=== PATIENT | male | born 1945 | race Caucasian/White ===

== ENCOUNTER 2017-03-13 08:29 | Emergency (ER) | payer OTHER, BC ==
[2017-03-13 08:35] VITALS: TEMP 98; BMI 26.1
--- NOTE | 2017-03-13 09:02 | PDOC ---
History of Present Illness - General Chief Complaint: Revisit, Lab Variance Stated Complaint: SEND BY PCP Time Seen by Provider: 03/13/17 09:01 Past History - Past Medical History Allergies/Adverse Reactions: Allergies Allergy/AdvReac Type Severity Reaction Status Date / Time No Known Allergies Allergy Verified 03/13/17 09:08 Home Medications: Ambulatory Orders RX: Levothyroxine [Synthroid -] 25 mcg PO DAILY 12/16/13 RX: Ramipril [Altace] 10 mg PO DAILY 12/16/13 RX: Ranitidine [Zantac -] 150 mg PO DAILY 12/16/13 RX: Simvastatin [Zocor -] 40 mg PO HS 12/16/13 Anemia: No Asthma: No Cancer: No Cardiac Disorders: Yes (HEART MURMUR) CVA: No COPD: No CHF: No Dementia: No Diabetes: No GI Disorders: Yes (GERD) Disorders: No HTN: Yes Hypercholesterolemia: Yes Liver Disease: No Seizures: No Thyroid Disease: Yes - Surgical History Abdominal Surgery: No Appendectomy: Yes Cardiac Surgery: No Cholecystectomy: No Lung Surgery: No Neurologic Surgery: No Orthopedic Surgery: No - Psycho/Social/Smoking Cessation Hx Suicidal Ideation: No Smoking History: Former smoker Have you smoked in the past 12 months: No If you are a former smoker, when did you quit?: 15 years ago Information on smoking cessation initiated: No Hx Alcohol Use: No Drug/Substance Use Hx: No Substance Use Type: None Hx Substance Use Treatment: No *Physical Exam - Vital Signs Last Vital Signs Temp Pulse Resp BP Pulse Ox 98 F 53 L 18 157/78 100 03/13/17 08:32 03/13/17 08:32 03/13/17 08:32 03/13/17 08:32 03/13/17 08:32 ED Treatment Course - LABORATORY CBC & Chemistry Diagram: 03/13/17 09:02 03/13/17 09:02 Medical Decision Making - Medical Decision Making 03/13/17 10:03 Patient seen and evaluated with the nurse practitioner. I agree with the overall evaluation, assessment, and management with the following summary of visit: 71-year-old male sent to ED for elevated potassium level found on routine blood tests performed yesterday. EKG shows no hyperkalemic changes or ischemic changes Repeat potassium is 4.5, creatinine is 1.4. Will dispo with PMD.
[2017-03-13 09:13] LABS: BASOPHIL 0.9 % (0-2.0); MCH 32.6 pg (25.7-33.7); MCHC 34.3 g/dl (32.0-35.9); MEAN CELL VOLUME 94.9 fl (80-96); MEAN PLT VOLUME 7.9 fl (7.5-11.1); NEUTROPHILS 68.5 % (42.8-82.8); PLATELET COUNT 296 K/MM3 (134-434); RDW 12.9 % (11.9-15.9); WHITE BLOOD COUNT 7.3 K/mm3 (4.0-10.0)
[2017-03-13 09:34] LABS: ALBUMIN 4.3 g/dl (3.4-5.0); CALCIUM 9.4 mg/dL (8.5-10.1); COCKROFT - GAULT 54.87; CREATININE 1.4 mg/dL (0.7-1.3)
--- NOTE | 2017-03-13 09:42 | PDOC ---
History of Present Illness - General Chief Complaint: Revisit, Lab Variance Stated Complaint: SEND BY PCP Time Seen by Provider: 03/13/17 09:01 History Source: Patient Exam Limitations: No Limitations - History of Present Illness Initial Comments: 03/13/17 09:04 71-year-old male sent in by Dr. Snyder for evaluation of elevated potassium. Patient had blood work done prior to his visit with Dr. Underwood this as routine blood work. Patient states has no complaints include chest pain, shortness of breath, change in urine pattern, change in bowel pattern, lower extremity, kidney disease, skin discoloration, or abdominal distention. Patient does state history of mitral valve regurgitation and had a replacement 2 weeks ago. Timing/Duration: unsure Associated Symptoms: reports: denies symptoms Past History - Travel Traveled outside of the country in the last 30 days: No Close contact w/someone who was outside of country & ill: No - Past Medical History Allergies/Adverse Reactions: Allergies Allergy/AdvReac Type Severity Reaction Status Date / Time No Known Allergies Allergy Verified 03/13/17 09:08 Home Medications: Ambulatory Orders Levothyroxine [Synthroid -] 25 mcg PO DAILY 12/16/13 Ramipril [Altace] 10 mg PO DAILY 12/16/13 Ranitidine [Zantac -] 150 mg PO DAILY 12/16/13 Simvastatin [Zocor -] 40 mg PO HS 12/16/13 Anemia: No Asthma: No Cancer: No Cardiac Disorders: Yes (HEART MURMUR) CVA: No COPD: No CHF: No Dementia: No Diabetes: No GI Disorders: Yes (GERD) Disorders: No HTN: Yes Hypercholesterolemia: Yes Liver Disease: No Seizures: No Thyroid Disease: Yes - Surgical History Abdominal Surgery: No Appendectomy: Yes Cardiac Surgery: Yes (mvr) Cholecystectomy: No Lung Surgery: No Neurologic Surgery: No Orthopedic Surgery: No - Psycho/Social/Smoking Cessation Hx Suicidal Ideation: No Smoking History: Former smoker Have you smoked in the past 12 months: No If you are a former smoker, when did you quit?: 15 years ago Information on smoking cessation initiated: No Hx Alcohol Use: No Drug/Substance Use Hx: No Substance Use Type: None Hx Substance Use Treatment: No Patient Lives Alone: No Lives with/in: spouse/SO Review of Systems - Review of Systems Able to Perform ROS?: Yes Constitutional: No: Symptoms Reported HEENTM: No: Symptoms Reported Respiratory: No: Symptoms reported Cardiac (ROS): No: Symptoms Reported ABD/GI: No: Symptoms Reported : No: Symptoms Reported Musculoskeletal: No: Symptoms Reported Integumentary: No: Symptoms Reported Neurological: No: Symptoms reported Endocrine: No: Symptoms Reported Hematologic/Lymphatic: No: Symptoms Reported *Physical Exam - Vital Signs Last Vital Signs Temp Pulse Resp BP Pulse Ox 98 F 53 L 18 157/78 98 03/13/17 08:32 03/13/17 08:32 03/13/17 08:32 03/13/17 08:32 03/13/17 09:00 - Physical Exam General Appearance: Yes: Nourished, Appropriately Dressed. No: Apparent Distress HEENT: negative: Pale Conjunctivae Neck: positive: Supple Respiratory/Chest: positive: Lungs Clear, Normal Breath Sounds. negative: Respiratory Distress, Accessory Muscle Use Cardiovascular: positive: Regular Rhythm, Regular Rate. negative: Murmur Gastrointestinal/Abdominal: positive: Soft. negative: Tenderness Musculoskeletal: negative: CVA Tenderness Extremity: positive: Normal Capillary Refill. negative: Pedal Edema Integumentary: positive: Normal Color, Warm, Moist Neurologic: positive: Motor Strength 5/5 (ambulatory) Heart Score/ECG Review - ECG Intrepretation Rhythm: Regular Rhythm (rate 54. intervals are regular. no st depression and elevation) ED Treatment Course - LABORATORY CBC & Chemistry Diagram: 03/13/17 09:02 03/13/17 09:02 - ADDITIONAL ORDERS Additional order review: Laboratory Results 03/13/17 09:02 Sodium 141 Potassium 4.5 Chloride 106 Carbon Dioxide 28 Anion Gap 7 L BUN 17 Creatinine 1.4 H Creat Clearance w eGFR 49.68 Random Glucose 103 Calcium 9.4 AST 25 Albumin 4.3 03/13/17 09:02 RBC 4.01 MCV 94.9 MCHC 34.3 RDW 12.9 MPV 7.9 Neutrophils % 68.5 Lymphocytes % 17.3 Monocytes % 8.3 Eosinophils % 5.0 H Basophils % 0.9 Medical Decision Making - Medical Decision Making 03/13/17 09:53 Pt here for evaluation of elevated potassium sent in by Dr. snyder. Pt is currently asymptomatic. Pt was ordered for cbc, comp, and ekg. Pt placed on quality assurance monitor. 03/13/17 10:21 Laboratory Tests 03/13/17 03/13/17 09:02 09:02 WBC 7.3 Hgb 13.1 Hct 38.1 Plt Count 296 Eosinophils % 5.0 H Sodium 141 Potassium 4.5 Chloride 106 Carbon Dioxide 28 Anion Gap 7 L BUN 17 Creatinine 1.4 H AST [address] Underwood in regards to lab results. 03/13/17 10:[address] Underwood and agrees patient may be discharged home to follow -up with him in the office this for his appointment. *DC/Admit/Observation/Transfer Diagnosis at time of Disposition: Encounter for laboratory test - Discharge Dispostion Disposition: HOME Condition at time of disposition: Good - Referrals Referrals: Harry Underwood MD [Primary Care Provider] - - Patient Instructions Printed Discharge Instructions: Eat Well, Exercise Well, Be Well: Dietary and Fitness Guidelines Additional Instructions: Your potassium today was 4.6 and creatinine level today was 1.4. I have discussed the results with Dr. Underwood who agrees this is her baseline and will follow-up in the office with you this for your appointment.
[2017-03-13 09:50] LABS: TOT PROT 7.8 g/dl (6.4-8.2)
--- NOTE | 2017-03-13 11:00 | EKG ---
Test Reason : Blood Pressure : / mmHG Vent. Rate : 054 BPM Atrial Rate : 054 BPM P-R Int : 190 ms QRS Dur : 096 ms QT Int : 418 ms P-R-T Axes : 034 003 032 degrees QTc Int : 396 ms SINUS BRADYCARDIA EARLY TRANSITION NOTED ABNORMAL ECG WHEN COMPARED WITH ECG OF 23-JAN-2007 01:07, VENT. RATE HAS DECREASED BY 32 BPM Confirmed by ANTOINETTE KNOX MD ([id number]) on 03/13/2017 11:00:09 AM Referred By: Confirmed By:ANTOINETTE KNOX MD
[2017-03-13 11:05] VITALS: BP 160/60; PULSE 50
== END 2017-03-13 11:07 | disposition home or self-care (01) ==
LOC: JER 08:29
DX: Z00.01 Encounter for general adult medical examination with abnormal findings (principal); E87.5 Hyperkalemia; I10 Essential (primary) hypertension; E78.00 Pure hypercholesterolemia, unspecified; K21.9 Gastro-esophageal reflux disease without esophagitis; E03.9 Hypothyroidism, unspecified
CPT/HCPCS: 36415; 80053; 85025; 93005; 93010; 99283-25

== ENCOUNTER 2019-03-19 06:56 | Day surgery (SDC) | payer OTHER, BC ==
[2019-03-18 13:29] VITALS: BMI 27.2
[2019-03-19 08:54] VITALS: TEMP 98.8
[2019-03-19 10:47] VITALS: BP 140/67; PULSE 52
--- NOTE | 2019-03-20 09:02 | PATH ---
Surgical Pathology Report Patient Name: CASS RICHARD [facility]. Rec. #: [id number] /Age/Gender: 1945 (Age: 73) / M Account: [id number] Location: U-ENDOSCOPY Taken: 03/19/2019 Received: 03/19/2019 Reported: 03/20/2019 Physicians: Lance Cuba M.D. Specimen(s) Received A: BX RECTAL POLYP B: BX PROXIMAL TRANSVERSE COLON Clinical History Screening Postoperative diagnosis: Colon polyps, diverticulosis Final Diagnosis A. COLON, RECTUM, BIOPSY: HYPERPLASTIC POLYP B. COLON, PROXIMAL TRANSVERSE, BIOPSY: COLONIC MUCOSA WITH NO PATHOLOGIC CHANGES. NO ACTIVE COLITIS, ARCHITECTURAL DISTORTION, GRANULOMATA, OR DYSPLASIA IDENTIFIED. NO MICROSCOPIC COLITIS IDENTIFIED (NO LYMPHOCYTIC OR COLLAGENOUS COLITIS IDENTIFIED). Electronically Signed Will Damon M.D. Gross Description A. Received in formalin, labeled "rectum polyp biopsy" is a cisneros, irregular portion of soft tissue measuring 0.3 cm. in greatest dimension. The specimen is submitted in toto in one cassette. B. Received in formalin, labeled "proximal transverse colon" are 5 cisneros, irregular portions of soft tissue ranging from 0.1-0.3 cm. in greatest dimension. The specimens are submitted in toto in one cassette. /03/19/2019 [facility]03/19/2019
== END 2019-03-19 10:10 | disposition home or self-care (01) ==
LOC: JASU-ENDO 06:56
PROVIDERS: ATTEND Internal Medicine Gastroenterology
PROC: 0DBL8ZX Excision of Transverse Colon, Via Natural or Artificial Opening Endoscopic, Diagnostic (ICD-10-PCS; 2019-03-19)
PROC: 0DBP8ZX Excision of Rectum, Via Natural or Artificial Opening Endoscopic, Diagnostic (ICD-10-PCS; principal; 2019-03-19 08:00)
DX: Z12.11 Encounter for screening for malignant neoplasm of colon (principal); Z86.010 Personal history of colon polyps; K62.1 Rectal polyp; K64.8 Other hemorrhoids; D12.3 Benign neoplasm of transverse colon; K57.30 Diverticulosis of large intestine without perforation or abscess without bleeding; I10 Essential (primary) hypertension; I48.91 Unspecified atrial fibrillation; Z79.01 Long term (current) use of anticoagulants
CPT/HCPCS: 88305-TC

== ENCOUNTER 2019-10-17 18:01 | Emergency (ER) | payer OTHER, BC ==
--- NOTE | 2019-10-17 18:22 | PDOC ---
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 Patient reports that he was walking home from his [place] and then woke up in the ambulance. Does not know what happened, positive LOC. Complains only about low back pain and right shoulder pain. Denies CP, SOB, abd pain, KAYE, N/V, fevers/chills, constipation/diarrhea. Has never had an event like this before. Past History - Past Medical History Allergies/Adverse Reactions: Allergies Allergy/AdvReac Type Severity Reaction Status Date / Time No Known Allergies Allergy Verified 10/17/19 18:13 Home Medications: Ambulatory Orders Levothyroxine [Synthroid -] 25 mcg PO DAILY 12/16/13 Ramipril [Altace] 10 mg PO DAILY 12/16/13 Ranitidine [Zantac -] 150 mg PO DAILY 12/16/13 Simvastatin [Zocor -] 40 mg PO HS 12/16/13 Apixaban [Eliquis] 5 mg PO BID 03/18/19 Metoprolol Succinate 25 mg PO DAILY 03/18/19 Anemia: No Asthma: No Cancer: No Cardiac Disorders: Yes (PAROXYSMAL AFIB,HEART MURMUR) CVA: No COPD: No CHF: No Dementia: No Diabetes: No GI Disorders: Yes (GERD) Disorders: No HTN: Yes Hypercholesterolemia: Yes Liver Disease: No Seizures: No Thyroid Disease: Yes (Hypo) - Surgical History Abdominal Surgery: No Appendectomy: Yes Cardiac Surgery: No Cholecystectomy: No Lung Surgery: No Neurologic Surgery: No Orthopedic Surgery: No - Psycho Social/Smoking Cessation Hx Smoking History: Former smoker Have you smoked in the past 12 months: No If you are a former smoker, when did you quit?: 1998 Hx Alcohol Use: No Drug/Substance Use Hx: No Substance Use Type: None Hx Substance Use Treatment: No Review of Systems - Review of Systems Comments:: 10/18/19 02:13 GENERAL/CONSTITUTIONAL: No fever or chills. No weakness. HEAD, EYES, EARS, NOSE AND THROAT: No change in vision. No ear pain or discharge. No sore throat. CARDIOVASCULAR: No chest pain or shortness of breath. RESPIRATORY: No cough, wheezing, or hemoptysis. GASTROINTESTINAL: No nausea, vomiting, diarrhea or constipation. GENITOURINARY: No dysuria, frequency, or change in urination. MUSCULOSKELETAL: Mild R clavicular tenderness. Low back pain. SKIN: No rash NEUROLOGIC: No headache, vertigo, loss of consciousness, or change in strength/ sensation. ENDOCRINE: No increased thirst. No abnormal weight change. HEMATOLOGIC/LYMPHATIC: No anemia, easy bleeding, or history of blood clots. ALLERGIC/IMMUNOLOGIC: No hives or skin allergy *Physical Exam - Physical Exam 10/17/19 Gen: well-developed, well-nourished, NAD, appears pale. Hypoxic at 85%. Wearing C-collar. Neuro: AAOX4, CN II-XII intact, FTN intact, EOMI, PERRLA, 5/5 strength, SILT HEENT: atraumatic, normocephalic, dry mucous membranes Neck: trachea midline, supple CV: regular rate, regular rhythm, no murmurs, rubs, or gallops Pulm: CTA b/l, no wheezing Abd: soft, non-distended, non-tender MSK: full ROM, intact pulses. No bony tenderness of the hip. Negative Millan Diaz's sign. No midline cervical, thoracic, or lumbar tenderness. Extr: no edema, no deformities. Mild ttp over R clavicle. Skin: warm, dry Procedures - Central Line Central Line Lumen: triple Central Line Position: femoral (R) Anesthesia: 1% Lidocaine Amount of anesthesia (ccs): 10 Complications: none Post Central Line Insertion: sutured, good blood return - Intubation Time of Intubation: 01:05 Intubation Method: orotracheal Blade used: Glidescope Tube Size (Fr): 6.5 Medications: Etomidate, Succinylcholine Tube position @ lip (cm): 20 Tube position confirmed by: Direct visualization, CO2 detector, Breath sounds Breath Sounds after Intubation: equal Intubation Complications: no complications Post Intubation Xray: No (transferred to [facility]) ED Treatment Course - LABORATORY CBC & Chemistry Diagram: 10/17/19 22:00 10/17/19 19:05 Medical Decision Making - Critical Care Time Total Critical Care Time (minutes): 240 Critical Care Statement: The care of this patient involved high complexity decision making to prevent further life threatening deterioration of the patient 's condition and/or to evaluate & treat vital organ system(s) failure or risk of failure. - Medical Decision Making 10/18/19 74 yo M with initial reported history of syncope with collapse, positive LOC, positive head hematoma, also on Eliquis. Initially concern was for ACS vs dysrhythmia, and ACS workup ordered. Initial EKG normal sinus at 73 bpm. With unknown history of collapse on blood thinners, also put in CT head/cervical /thoracic/lumbar scans. While preparing for CT scan, patient's BP was noted to be 80s/40s. 2L of NS were started with improved MAPs. At that time, WBC was noted to be greater than 20, with an elevated lactate of 3.8. Patient was started on septic workup with blood cultures drawn and broad spectrum antibiotics started. FAST was performed, without signs of free fluid. With increasing hypotension, another 1L NS was started, and a CTA looking for potential dissection or pulmonary embolism considering persistent hypoxia were placed. While on the CT scan table, was noted again to have MAPs in the 50s. Also having runs of atrial fibrillation. Was given 1 unit pRBC O-negative, and there was growing concern for an occult bleed, potentially a hip fracture. Patient was brought back to room 10 with continuing MAPs in the 50s. Massive transfusion protocol was ordered. Considering hypotension and potential need for pressors, a central line was placed in the patient's right femoral vein (CT cervical spine was not back yet) . Fentanyl 50mcg was given. After central line placement, 2 other units of pRBCs were placed and the patient was started on Levophed at 5 mcg. Patient then developed afib with RVR to the 170s. Another 50mcg of fentanyl was given without change. CT scans came back with pelvic fractures, acute hematoma, as well as bilateral pneumonitis. Patient was placed in a pelvic binder and continued to get blood products. [facility] was called and accepted the transfer. In total, patient received 7 units pRBCs, 2 units of plasma, 2 units of FFP, as well as 3L of saline initially. With the amount of fluid patient received, patient was placed on BIPAP. Upon arrival of transport, patient was tachypneic and not tolerating BIPAP. Patient was then intubated for transport, with return of HR to below 100. Patient was transferred to [facility]. Discharge - Discharge Information Problems reviewed: Yes Clinical Impression/Diagnosis: Syncope and collapse Condition: Critical Disposition: TRANSFER ACUTE CARE/OTHER HOSP - Follow up/Referral Referrals: Harry Underwood MD [Primary Care Provider] - - Patient Discharge Instructions - Post Discharge Activity
[2019-10-17 18:23] VITALS: BMI 27.2
[2019-10-17 19:18] LABS: BASO % 0.4 % (0-2.0); EOS % 0.7 % (0-4.5); HEMOGLOBIN 11.5 GM/dL (11.7-16.9); LYMPH % 10.8 % (8-40); MCHC 32.9 g/dl (32.0-35.9); MEAN CELL VOLUME 97.1 fl (80-96); MEAN PLT VOLUME 8.8 fl (7.5-11.1); MONO % 6.7 % (3.8-10.2); NEUT % 81.4 % (42.8-82.8); PLATELET COUNT 237 K/MM3 (134-434); RDW 12.8 % (11.9-15.9); WHITE BLOOD COUNT 20.6 K/mm3 (4.0-10.0)
[2019-10-17] MEDS ORDERED: ACETAMINOPHEN 1000 MG/100 ML VIAL (NON FORMULARY) IVPB ONE (19:21)
[2019-10-17] MEDS ORDERED: ACETAMINOPHEN INJECTION 100 ML IVPB ONE (19:43)
--- NOTE | 2019-10-17 19:44 | PDOC ---
Attending Attestation - Resident Resident Name: GonzalezGlenn - ED Attending Attestation I have performed the following: I have examined & evaluated the patient, The case was reviewed & discussed with the resident, I agree w/resident's findings & plan - HPI HPI: 10/17/19 21:06 Pt was feeling fine today. He ate cereal for breakfast and a bagel and coffee for lunch. [facility] and he had a syncopal episode en route back home. He had been ambulating. No witnesses, somebody found him down. He has never had syncope. He hit his left forehead. Pt is on Eliquis for AFIB; placed on Eliquis by Dr. Juan. Pt's PMD is Underwood. Pt has HTN and high cholesterol also. He takes metorpolol and a choleserol lowering med. Pt's states that the family has been under a great deal of stress due to unfortunate circumstances. Pt states that his low back hurts and tailbone hurt. - Physicial Exam PE: 10/17/19 21:10 Pt is A+Ox3 No distress and no complaints. C collar on. Left forehead 2.5cm hematoma No cspine tenderness. No T-spine or L-spine tenderness Pt has paraspinal pain Pt has downgoing babinski reflexes. Joint refelxes brisk and equal throughout. Strenth intact Pt complains of low back pain when he moves his left leg. - Critical Care Time Total Critical Care Time: 240 Critical Care Statement: The care of this patient involved high complexity decision making to prevent further life threatening deterioration of the patient 's condition and/or to evaluate & treat vital organ system(s) failure or risk of failure. - Medical Decision Making 10/17/19 21:02 Pt's blood pressure dropped to 60/40. Pt receiving 2L NSS at this time 10/17/19 21:12 Hb/HCT 1st level is stable. Pt has a WBC of 20; unclear if this is sepsis. Pt has left shift of 81% Pt has no fever and no ill contacts and no comlplaints . Urine straightcath sent (appears clear) 10/17/19 21:18 CPK and CK-MB high MB index however normal EKG NSR. No AFIB noted BUN20/Cr 1.4; pt is getting hydration Neurologically intact. 10/17/19 21:32 Lactic acid 3.8; pt will go to the ICU; head CT seen by ourselves, but we are awaiting official result. Only scalp hematomas coup/countercoup pattern. 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 UA normal 10/20/19 01:35 Pt's blood pressure plummeted. Remained low despite 2L NSS, 1Unit blood; portable CXR done and shows bilat patchy pneumonitis; pt returned from CT scan and BP dropping there and now here. Levophed drip started @5mcg/min; (Central line placed in the right groin) at bedside I kept adjusting levophed btwn 5mcg , 10mcg and 15mcg, as rapid afib was affected by the dose. Pt placed on BiPAP, as 13 units of blood products was soon to be placed into patient, and pt was already having difficulty breathing with his congestion, which was likely bleeding into his lungs bilaterally. After hours, readings of CT scan returned, and patient was found to have bilateral pelvic fractures; pelvis was bound with a sheet, and cranked tight with a chest tube. Pt was given fentanyl for pain as well as ofirmev. Ortho emergency with the pelvic fractures. We arranged for transfer of patient to [facility] , howeverpt wouldn't tolerate the Critical Care Team;s bipap; so we intubated patient in the ER prior to transfer with etomidate and succs. 1st attempt at intubation with a 7.5ETT was unsuccssful; 2nd attempt with 6.5 ETT worked. Pt was given rocuronium, prior to transfer.
[2019-10-17 20:02] LABS: ALBUMIN 3.8 g/dl (3.4-5.0); ALK PHOS 69 U/L (45-117); ANION GAP 7 MMOL/L (8-16); BILIRUBIN,TOTAL 0.8 mg/dL (0.2-1); BLOOD UREA NITROGEN 20.4 mg/dL (7-18); CALCIUM 9.1 mg/dL (8.5-10.1); CHLORIDE 106 mmol/L (98-107); CO2 26 mmol/L (21-32); CREATININE 1.4 mg/dL (0.55-1.3); GLUCOSE,RANDOM 163 mg/dL (74-106); POTASSIUM 4.5 mmol/L (3.5-5.1); SGOT/AST 41 U/L (15-37); SGPT/ALT 31 U/L (13-61); SODIUM 139 mmol/L (136-145); TOT PROT 6.7 g/dl (6.4-8.2)
[2019-10-17] MEDS ORDERED: SODIUM CHLORIDE 0.9% 500 ML INFUS.BAG IV ONE (20:41)
[2019-10-17] MEDS ORDERED: PIPERACILLIN/TAZOB 4.5 GM 4.5 GM/100 ML BAG IVPB ONE (20:50)
[2019-10-17] MEDS ORDERED: VANCOMYCIN 1 GRAM (PRE-DOCKED) 1,000 MG/250 ML BAG IVPB ONE (20:50)
[2019-10-17 21:01] LABS: ANISOCYTOSIS 0; MACROCYTOSIS 0; OVALOCYTE 1+; PLATELET ESTIMATE NORMAL
[2019-10-17 21:14] LABS: EPI CELLS 0.8 /HPF (0-5/HPF); HYALINE CASTS 3 /lpf (0-8); PH,URINE 5.5 (5.0-8.0); URINE APPEARANCE CLEAR; URINE BACTERIA 0.3 /hpf (NEGATIVE); URINE BILIRUBIN NEGATIVE (NEGATIVE); URINE COLOR YELLOW; URINE GLUCOSE (UA) NEGATIVE (NEGATIVE); URINE KETONE NEGATIVE (NEGATIVE); URINE LEUK ESTERASE NEGATIVE (NEGATIVE); URINE NITRITE NEGATIVE (NEGATIVE); URINE PROTEIN 1+ (NEGATIVE); URINE RBC 0 /hpf (0-4); URINE UROBILINOGEN 0.2 mg/dL (0.2-1.0); URINE WBC 0 /hpf (0-5)
[2019-10-17 21:31] LABS: INR 1.51 (0.83-1.09); PROTHROMBIN TIME (PATIENT) 17.9 SEC (9.7-13.0)
[2019-10-17 21:34] LABS: ACTIVATED PTT 27.4 SECONDS (25.2-36.5)
[2019-10-17] MEDS ORDERED: NOREPINEPHRINE BITARTRATE 4,000 MCG in DEXTROSE 5%-WATER - 496 ML IV SCH (21:45)
[2019-10-17 22:10] LABS: BASO % 0.1 % (0-2.0); EOS % 0.2 % (0-4.5); HEMATOCRIT 27.8 % (35.4-49); LYMPH % 6.1 % (8-40); MCH 31.7 pg (25.7-33.7); MCHC 32.4 g/dl (32.0-35.9); MEAN CELL VOLUME 97.7 fl (80-96); MEAN PLT VOLUME 8.5 fl (7.5-11.1); MONO % 8.4 % (3.8-10.2); NEUT % 85.2 % (42.8-82.8); PLATELET COUNT 202 K/MM3 (134-434); RBC 2.84 M/mm3 (4.00-5.60); RDW 12.6 % (11.9-15.9); WHITE BLOOD COUNT 20.4 K/mm3 (4.0-10.0)
[2019-10-17 22:31] VITALS: TEMP 97.5
[2019-10-17] MEDS ORDERED: PIPERACILLIN/TAZOB 3.375 GM 3.375 GM in DEXTROSE 5%-WATER - 50 ML IVPB ONE (23:11)
[2019-10-17] MEDS ORDERED: AZITHROMYCIN IVPB 500 MG in DEXTROSE 5%-WATER - 250 ML IVPB ONE (23:11)
[2019-10-17] MEDS ORDERED: LIDOCAINE 5% TOPICAL PATCH ONE (23:46)
[2019-10-18 00:48] VITALS: BP 115/86; PULSE 177
[2019-10-18] MEDS ORDERED: KETAMINE HCL 500 MG/10 ML VIAL ONE (00:58)
[2019-10-18] MEDS ORDERED: RAPID SEQUENCE INTUBATION KIT NR ONE (00:59)
[2019-10-18] MEDS ORDERED: MIDAZOLAM IN 0.9 % SOD.CHLORID 1 MG/1 ML PLAST..BAG ONE (01:05)
[2019-10-18] MEDS ORDERED: MIDAZOLAM HCL 2 MG/2 ML SINGLE DOSE VIAL ONE (01:17)
[2019-10-18] MEDS ORDERED: ETOMIDATE 40 MG/20 ML VIAL IVPUSH ONE (01:26)
[2019-10-18] MEDS ORDERED: SUCCINYLCHOLINE CHLORIDE 200 MG/10 ML VIAL IVPUSH ONE (01:27)
[2019-10-18] MEDS ORDERED: MIDAZOLAM HCL 2 MG/2 ML SINGLE DOSE VIAL IVPUSH ONE (01:31)
[2019-10-18] MEDS ORDERED: ROCURONIUM BROMIDE 50 MG/5 ML VIAL IV ONE (01:31)
[2019-10-18] MEDS ORDERED: KETAMINE HCL 200 MG/20 ML VIAL IVPUSH ONE (01:32)
[2019-10-18] MEDS ORDERED: LIDOCAINE 5% TOPICAL PATCH TP ONE (01:34)
[2019-10-18] MEDS ORDERED: MIDAZOLAM IN 0.9 % SOD.CHLORID 100 MG/100 ML PLAST..BAG IVPB SCH (01:45)
--- NOTE | 2019-10-18 08:45 | EKG ---
Test Reason : Blood Pressure : / mmHG Vent. Rate : 175 BPM Atrial Rate : 182 BPM P-R Int : 000 ms QRS Dur : 084 ms QT Int : 268 ms P-R-T Axes : 000 020 094 degrees QTc Int : 457 ms ATRIAL FIBRILLATION WITH RAPID VENTRICULAR RESPONSE MARKED ST ABNORMALITY, POSSIBLE INFERIOR SUBENDOCARDIAL INJURY ABNORMAL ECG WHEN COMPARED WITH ECG OF 17-OCT-2019 18:25, ATRIAL FIBRILLATION HAS REPLACED SINUS RHYTHM VENT. RATE HAS INCREASED BY [address] MORE DEPRESSED INFERIOR LEADS ST NOW DEPRESSED IN ANTEROLATERAL LEADS Confirmed by LENCHO BEDOYA, YANCY ([id number]) on 10/18/2019 8:45:36 AM Referred By: Confirmed By:YANCY MUSA MD
[2019-10-18 11:31] LABS: VENOUS PC02 51.3 mmHg (38-52)
[2019-10-18 11:40] LABS: VENOUS PH 7.18 (7.31-7.41); VENOUS PO2 < 49 mmHg (28-48)
--- NOTE | 2019-10-21 12:43 | EKG ---
Test Reason : Blood Pressure : / mmHG Vent. Rate : 073 BPM Atrial Rate : 073 BPM P-R Int : 176 ms QRS Dur : 090 ms QT Int : 384 ms P-R-T Axes : 042 -09 055 degrees QTc Int : 423 ms NORMAL SINUS RHYTHM NORMAL ECG WHEN COMPARED WITH ECG OF 13-MAR-2017 09:06, NO SIGNIFICANT CHANGE WAS FOUND Confirmed by MD Jason Daniel ([id number]) on 10/21/2019 12:43:16 PM Referred By: Confirmed By:Joseph Jason MD
== END 2019-10-18 02:10 | disposition short-term general hospital (02) ==
LOC: JER 18:01
PROC: 0BH17EZ Insertion of Endotracheal Airway into Trachea, Via Natural or Artificial Opening (ICD-10-PCS; principal; 2019-10-17)
PROC: 06HY33Z Insertion of Infusion Device into Lower Vein, Percutaneous Approach (ICD-10-PCS; 2019-10-17)
PROC: 3E033NZ Introduction of Analgesics, Hypnotics, Sedatives into Peripheral Vein, Percutaneous Approach (ICD-10-PCS; 2019-10-17)
PROC: 30243L1 Transfusion of Nonautologous Fresh Plasma into Central Vein, Percutaneous Approach (ICD-10-PCS; 2019-10-17)
PROC: 30243N1 Transfusion of Nonautologous Red Blood Cells into Central Vein, Percutaneous Approach (ICD-10-PCS; 2019-10-17)
PROC: 30243K1 Transfusion of Nonautologous Frozen Plasma into Central Vein, Percutaneous Approach (ICD-10-PCS; 2019-10-17)
PROC: 30243R1 Transfusion of Nonautologous Platelets into Central Vein, Percutaneous Approach (ICD-10-PCS; 2019-10-17)
PROC: B246ZZZ Ultrasonography of Right and Left Heart (ICD-10-PCS; 2019-10-17)
PROC: BW40ZZZ Ultrasonography of Abdomen (ICD-10-PCS; 2019-10-17)
PROC: 3E03329 Introduction of Other Anti-infective into Peripheral Vein, Percutaneous Approach (ICD-10-PCS; 2019-10-17)
PROC: 3E033NZ Introduction of Analgesics, Hypnotics, Sedatives into Peripheral Vein, Percutaneous Approach (ICD-10-PCS; 2019-10-17)
PROC: 3E033NZ Introduction of Analgesics, Hypnotics, Sedatives into Peripheral Vein, Percutaneous Approach (ICD-10-PCS; 2019-10-17)
PROC: 3E033FZ Introduction of Intracirculatory Anesthetic into Peripheral Vein, Percutaneous Approach (ICD-10-PCS; 2019-10-17)
PROC: 3E033NZ Introduction of Analgesics, Hypnotics, Sedatives into Peripheral Vein, Percutaneous Approach (ICD-10-PCS; 2019-10-17)
PROC: 3E033GC Introduction of Other Therapeutic Substance into Peripheral Vein, Percutaneous Approach (ICD-10-PCS; 2019-10-17)
PROC: 30243R1 Transfusion of Nonautologous Platelets into Central Vein, Percutaneous Approach (ICD-10-PCS; 2019-10-17)
DX: R55 Syncope and collapse (principal); S06.899A Other specified intracranial injury with loss of consciousness of unspecified duration, initial encounter; S32.89XA Fracture of other parts of pelvis, initial encounter for closed fracture; S42.031A Displaced fracture of lateral end of right clavicle, initial encounter for closed fracture; S00.03XA Contusion of scalp, initial encounter; S37.892A Contusion of other urinary and pelvic organ, initial encounter; J18.8 Other pneumonia, unspecified organism; I95.9 Hypotension, unspecified; Z87.891 Personal history of nicotine dependence; W18.39XA Other fall on same level, initial encounter; Y93.01 Activity, walking, marching and hiking; Y92.480 Sidewalk as the place of occurrence of the external cause; Y99.8 Other external cause status; I25.10 Atherosclerotic heart disease of native coronary artery without angina pectoris; I10 Essential (primary) hypertension; I48.0 Paroxysmal atrial fibrillation; Z79.01 Long term (current) use of anticoagulants; R01.1 Cardiac murmur, unspecified; E03.9 Hypothyroidism, unspecified; E78.00 Pure hypercholesterolemia, unspecified; E78.5 Hyperlipidemia, unspecified; K21.9 Gastro-esophageal reflux disease without esophagitis
CPT/HCPCS: 31500; 36415; 36430; 36511; 36556; 70450-TC; 71045-TC-FY; 71275-TC; 72125-TC; 72128-TC; 72131-TC; 74174-TC; 76705-TC; 80053; 81003; 82550; 82553; 82803; 83605; 84443; 84484; 85025; 85379; 85610; 85730; 86850; 86900; 86901; 86922; 87040; 87086; 87804; 93005; 93010; 93303; 96365; 96367; 96375; 99285-25; J0131; P9017; P9034; P9038; P9058; Q9967

== ENCOUNTER 2020-10-22 20:45 | Inpatient (IN) | payer OTHER, BC ==
[2020-10-22 22:35] LABS: BASO % 0.7 % (0-2.0); EOS % 2.7 % (0-4.5); HEMATOCRIT 38.5 % (35.4-49); HEMOGLOBIN 12.9 GM/dL (11.7-16.9); LYMPH % 15.4 % (8-40); MCH 32.3 pg (25.7-33.7); MCHC 33.5 g/dl (32.0-35.9); MEAN CELL VOLUME 96.5 fl (80-96); MEAN PLT VOLUME 9.2 fl (7.5-11.1); MONO % 15.2 % (3.8-10.2); PLATELET COUNT 171 K/MM3 (134-434); RBC 3.99 M/mm3 (4.00-5.60); RDW 14.2 % (11.9-15.9); WHITE BLOOD COUNT 5.6 K/mm3 (4.0-10.0)
[2020-10-22 22:44] LABS: INR 2.17 (0.83-1.09); PROTHROMBIN TIME (PATIENT) 25.7 SEC (9.7-13.0)
[2020-10-22 22:47] LABS: ACTIVATED PTT 36.7 SECONDS (25.2-36.5)
[2020-10-22 22:54] LABS: CHLORIDE 107 mmol/L (98-107); POTASSIUM 4.9 mmol/L (3.5-5.1); SODIUM 139 mmol/L (136-145)
[2020-10-22 22:56] LABS: ALBUMIN 4.2 g/dl (3.4-5.0); ANION GAP 7 MMOL/L (8-16); BLOOD UREA NITROGEN 31.4 mg/dL (7-18); CALCIUM 9.2 mg/dL (8.5-10.1); CO2 25 mmol/L (21-32); GLUCOSE,RANDOM 120 mg/dL (74-106); MAGNESIUM 2.4 mg/dL (1.8-2.4)
[2020-10-22 22:59] LABS: CREATININE 1.8 mg/dL (0.55-1.3); SGOT/AST 43 U/L (15-37); SGPT/ALT 25 U/L (13-61)
[2020-10-22 23:01] LABS: BILIRUBIN,TOTAL 1.5 mg/dL (0.2-1); TOT PROT 7.6 g/dl (6.4-8.2)
[2020-10-22 23:02] LABS: ALK PHOS 179 U/L (45-117)
[2020-10-22 23:06] LABS: N-TERMINAL BNP 7649.3 pg/ml (5-450)
[2020-10-22] MEDS ORDERED: ACETYLCYSTEINE 20% 200MG/ML 30 ML VIAL *FOR ORAL / INH USE ONLY PO ONE ×2 (23:20→23:22)
[2020-10-22] MEDS ORDERED: FUROSEMIDE 40 MG/4 ML INJECTABLE VIAL IVPUSH ONE (23:33)
[2020-10-23] MEDS ORDERED: ACETYLCYSTEINE 20% 200MG/ML 4 ML VIAL *FOR ORAL / INH USE ONLY ONE (00:04)
[2020-10-23] MEDS ORDERED: FUROSEMIDE 40 MG/4 ML INJECTABLE VIAL ONE ×3 (00:04→10:52)
[2020-10-23] MEDS ORDERED: FUROSEMIDE 40 MG/4 ML INJECTABLE VIAL IVPUSH ONE (03:30)
[2020-10-23 07:59] LABS: BASO % 0.8 % (0-2.0); EOS % 3.1 % (0-4.5); HEMATOCRIT 38.9 % (35.4-49); LYMPH % 16.9 % (8-40); MCH 32.3 pg (25.7-33.7); MCHC 33.5 g/dl (32.0-35.9); MEAN CELL VOLUME 96.5 fl (80-96); MEAN PLT VOLUME 9.8 fl (7.5-11.1); MONO % 14.7 % (3.8-10.2); NEUT % 64.5 % (42.8-82.8); PLATELET COUNT 176 K/MM3 (134-434); RBC 4.03 M/mm3 (4.00-5.60); RDW 14.4 % (11.9-15.9); WHITE BLOOD COUNT 6.5 K/mm3 (4.0-10.0)
[2020-10-23 08:19] LABS: POTASSIUM 5.1 mmol/L (3.5-5.1)
[2020-10-23 08:29] LABS: ALBUMIN 4.3 g/dl (3.4-5.0); BLOOD UREA NITROGEN 31.1 mg/dL (7-18); CALCIUM 9.2 mg/dL (8.5-10.1); MAGNESIUM 2.3 mg/dL (1.8-2.4)
[2020-10-23 08:32] LABS: CREATININE 1.7 mg/dL (0.55-1.3); PHOSPHOROUS 3.7 mg/dL (2.5-4.9)
[2020-10-23 08:33] LABS: BILIRUBIN,DIRECT 0.5 mg/dL (0.0-0.2); BILIRUBIN,TOTAL 1.6 mg/dL (0.2-1); TOT PROT 7.8 g/dl (6.4-8.2)
[2020-10-23] MEDS ORDERED: APIXABAN 5 MG TABLET ONE ×2 (10:52→20:48)
[2020-10-23] MEDS ORDERED: metoPROLOL SUCCINATE 25 MG TAB.SR.24H (FP) ONE (10:52)
[2020-10-23] MEDS: metoPROLOL SUCCINATE 25 MG TAB.SR.24H (FP) PO SCH (10:55)
[2020-10-23] MEDS: FUROSEMIDE 40 MG/4 ML INJECTABLE VIAL IVPUSH SCH (10:55)
[2020-10-23] MEDS: APIXABAN 5 MG TABLET PO SCH ×2 (10:55→20:59)
[2020-10-23] MEDS ORDERED: LISINOPRIL 5 MG TABLET PO ONE (16:32)
[2020-10-23] MEDS ORDERED: LISINOPRIL 5 MG TABLET ONE (17:57)
[2020-10-23 23:13] LABS: EPI CELLS 1 /uL (0-25.1); HYALINE CASTS 1 /uL (0-3.1); URINE APPEARANCE CLEAR; URINE BACTERIA 27 /uL (0-1359); URINE BILIRUBIN NEGATIVE (NEGATIVE); URINE COLOR YELLOW; URINE GLUCOSE (UA) NEGATIVE (NEGATIVE); URINE KETONE NEGATIVE (NEGATIVE); URINE LEUK ESTERASE NEGATIVE (NEGATIVE); URINE NITRITE NEGATIVE (NEGATIVE); URINE PROTEIN TRACE (NEGATIVE); URINE RBC 4 /uL (0-23.9); URINE UROBILINOGEN 0.2 mg/dL (0.2-1.0); URINE WBC 1 /uL (0-25.8)
[2020-10-23] MEDS ORDERED: LORazepam 2 MG/ML SDV VIAL IVPUSH ONE (23:31)
[2020-10-23] MEDS ORDERED: LORazepam 2 MG/ML SDV VIAL ONE (23:46)
[2020-10-24 08:36] LABS: BASO % 1.4 % (0-2.0); EOS % 4.9 % (0-4.5); HEMATOCRIT 39.1 % (35.4-49); HEMOGLOBIN 13.3 GM/dL (11.7-16.9); LYMPH % 11.8 % (8-40); MCH 32.7 pg (25.7-33.7); MCHC 33.9 g/dl (32.0-35.9); MEAN CELL VOLUME 96.4 fl (80-96); MONO % 17.8 % (3.8-10.2); NEUT % 64.1 % (42.8-82.8); PLATELET COUNT 166 K/MM3 (134-434); RBC 4.05 M/mm3 (4.00-5.60); RDW 14.4 % (11.9-15.9); WHITE BLOOD COUNT 5.6 K/mm3 (4.0-10.0)
[2020-10-24 08:38] LABS: POTASSIUM 4.1 mmol/L (3.5-5.1)
[2020-10-24 08:41] LABS: CALCIUM 9.3 mg/dL (8.5-10.1)
[2020-10-24 08:42] LABS: ALBUMIN 3.9 g/dl (3.4-5.0); BLOOD UREA NITROGEN 30.1 mg/dL (7-18); MAGNESIUM 2.2 mg/dL (1.8-2.4)
[2020-10-24 08:45] LABS: CREATININE 1.6 mg/dL (0.55-1.3)
[2020-10-24 08:46] LABS: BILIRUBIN,TOTAL 2.4 mg/dL (0.2-1); TOT PROT 7.1 g/dl (6.4-8.2)
[2020-10-24] MEDS ORDERED: APIXABAN 5 MG TABLET ONE (09:15)
[2020-10-24] MEDS ORDERED: FUROSEMIDE 40 MG/4 ML INJECTABLE VIAL ONE (09:15)
[2020-10-24] MEDS ORDERED: metoPROLOL SUCCINATE 25 MG TAB.SR.24H (FP) ONE (09:15)
[2020-10-24] MEDS: APIXABAN 5 MG TABLET PO SCH ×3 (10:35→21:13)
[2020-10-24] MEDS: metoPROLOL SUCCINATE 25 MG TAB.SR.24H (FP) PO SCH ×2 (10:35→11:35)
[2020-10-24] MEDS: FUROSEMIDE 40 MG/4 ML INJECTABLE VIAL IVPUSH SCH (10:35)
[2020-10-24] MEDS: METOPROLOL TARTRATE 50 MG TABLET (FP) PO SCH (21:13)
[2020-10-25 08:14] LABS: POTASSIUM 4.4 mmol/L (3.5-5.1)
[2020-10-25 08:17] LABS: ALBUMIN 3.9 g/dl (3.4-5.0); BLOOD UREA NITROGEN 30.6 mg/dL (7-18); CALCIUM 9.5 mg/dL (8.5-10.1)
[2020-10-25 08:20] LABS: CREATININE 1.5 mg/dL (0.55-1.3); HEMATOCRIT 38.5 % (35.4-49); HEMOGLOBIN 13.1 GM/dL (11.7-16.9); MAGNESIUM 2.1 mg/dL (1.8-2.4); MCH 32.7 pg (25.7-33.7); MEAN CELL VOLUME 96.5 fl (80-96); MEAN PLT VOLUME 9.2 fl (7.5-11.1); PLATELET COUNT 172 K/MM3 (134-434); RBC 3.99 M/mm3 (4.00-5.60); RDW 14.6 % (11.9-15.9); WHITE BLOOD COUNT 5.7 K/mm3 (4.0-10.0)
[2020-10-25 08:21] LABS: PHOSPHOROUS 3.8 mg/dL (2.5-4.9)
[2020-10-25 08:24] LABS: BILIRUBIN,TOTAL 2.3 mg/dL (0.2-1); TOT PROT 6.8 g/dl (6.4-8.2)
[2020-10-25] MEDS: VALSARTAN 40 MG TABLET PO SCH (09:24)
[2020-10-25] MEDS: APIXABAN 5 MG TABLET PO SCH ×2 (09:24→21:32)
[2020-10-25] MEDS: SPIRONOLACTONE 25 MG TABLET PO SCH (09:24)
[2020-10-25] MEDS: METOPROLOL TARTRATE 50 MG TABLET (FP) PO SCH ×2 (09:24→21:32)
[2020-10-25] MEDS: FUROSEMIDE 40 MG/4 ML INJECTABLE VIAL IVPUSH SCH (09:27)
[2020-10-25] MEDS ORDERED: FUROSEMIDE 40 MG/4 ML INJECTABLE VIAL IVPUSH SCH (14:00)
[2020-10-25 14:48] VITALS: BMI 25.0
[2020-10-26] MEDS ORDERED: PT OWN MED DRAWER 7, Y5N ONE (07:15)
[2020-10-26 07:53] LABS: BASO % 0.9 % (0-2.0); EOS % 6.6 % (0-4.5); HEMOGLOBIN 13.6 GM/dL (11.7-16.9); LYMPH % 20.8 % (8-40); MCH 32.7 pg (25.7-33.7); MCHC 33.9 g/dl (32.0-35.9); MEAN CELL VOLUME 96.2 fl (80-96); MONO % 14.5 % (3.8-10.2); NEUT % 57.2 % (42.8-82.8); PLATELET COUNT 181 K/MM3 (134-434); RBC 4.16 M/mm3 (4.00-5.60); RDW 14.4 % (11.9-15.9); WHITE BLOOD COUNT 5.5 K/mm3 (4.0-10.0)
[2020-10-26 08:21] LABS: POTASSIUM 4.4 mmol/L (3.5-5.1)
[2020-10-26 09:09] LABS: CALCIUM 9.4 mg/dL (8.5-10.1)
[2020-10-26 09:10] LABS: ALBUMIN 3.9 g/dl (3.4-5.0); BLOOD UREA NITROGEN 33.8 mg/dL (7-18)
[2020-10-26 09:13] LABS: CREATININE 1.7 mg/dL (0.55-1.3)
[2020-10-26 09:14] LABS: BILIRUBIN,TOTAL 2.2 mg/dL (0.2-1)
[2020-10-26 09:15] LABS: TOT PROT 7.2 g/dl (6.4-8.2)
[2020-10-26] MEDS: APIXABAN 5 MG TABLET PO SCH ×2 (09:52→22:07)
[2020-10-26] MEDS: METOPROLOL TARTRATE 50 MG TABLET (FP) PO SCH ×2 (09:52→22:07)
[2020-10-26] MEDS: VALSARTAN 40 MG TABLET PO SCH (09:52)
[2020-10-26] MEDS: SPIRONOLACTONE 25 MG TABLET PO SCH (09:52)
[2020-10-26] MEDS: FUROSEMIDE 20 MG TABLET (FP) PO SCH (09:52)
[2020-10-27 07:24] LABS: BASO % 0.6 % (0-2.0); EOS % 6.7 % (0-4.5); HEMATOCRIT 39.2 % (35.4-49); HEMOGLOBIN 13.2 GM/dL (11.7-16.9); LYMPH % 19.9 % (8-40); MCH 32.5 pg (25.7-33.7); MCHC 33.6 g/dl (32.0-35.9); MEAN CELL VOLUME 96.5 fl (80-96); MEAN PLT VOLUME 8.6 fl (7.5-11.1); NEUT % 58.8 % (42.8-82.8); PLATELET COUNT 187 K/MM3 (134-434); RBC 4.07 M/mm3 (4.00-5.60); RDW 14.6 % (11.9-15.9); WHITE BLOOD COUNT 5.6 K/mm3 (4.0-10.0)
[2020-10-27 07:46] LABS: POTASSIUM 4.2 mmol/L (3.5-5.1)
[2020-10-27 07:57] LABS: ALBUMIN 3.6 g/dl (3.4-5.0); CALCIUM 9.3 mg/dL (8.5-10.1)
[2020-10-27 08:01] LABS: CREATININE 1.5 mg/dL (0.55-1.3)
[2020-10-27 08:02] LABS: TOT PROT 6.5 g/dl (6.4-8.2)
[2020-10-27] MEDS ORDERED: SPIRONOLACTONE 25 MG TABLET PO SCH (10:00)
[2020-10-27] MEDS: METOPROLOL TARTRATE 50 MG TABLET (FP) PO SCH (10:04)
[2020-10-27] MEDS: APIXABAN 5 MG TABLET PO SCH (10:04)
[2020-10-27] MEDS: VALSARTAN 40 MG TABLET PO SCH (10:05)
[2020-10-27] MEDS: FUROSEMIDE 20 MG TABLET (FP) PO SCH (10:05)
[2020-10-27 14:06] VITALS: BP 107/73; PULSE 72; TEMP 97.7
[2020-10-28] MEDS ORDERED: SPIRONOLACTONE 25 MG TABLET PO SCH ×2 (10:00)
[2020-10-28 14:07] LABS: HEP B CORE AB, TOT Negative (Negative)
== END 2020-10-27 16:30 | disposition home or self-care (01) | DRG 291 ==
LOC: JER 20:45 → JERBED 10-23 01:05 → J4S 10-24 15:11
PROVIDERS: ADMIT Internal Medicine; ATTEND Internal Medicine
DX: I13.0 Hypertensive heart and chronic kidney disease with heart failure and stage 1 through stage 4 chronic kidney disease, or unspecified chronic kidney disease (principal); I50.33 Acute on chronic diastolic (congestive) heart failure; N17.9 Acute kidney failure, unspecified; I48.19 Other persistent atrial fibrillation; I48.0 Paroxysmal atrial fibrillation; K21.9 Gastro-esophageal reflux disease without esophagitis; I10 Essential (primary) hypertension; E78.5 Hyperlipidemia, unspecified; E03.9 Hypothyroidism, unspecified; E80.6 Other disorders of bilirubin metabolism; R74.8 Abnormal levels of other serum enzymes; N18.9 Chronic kidney disease, unspecified; J32.0 Chronic maxillary sinusitis; R74.01 Elevation of levels of liver transaminase levels; K80.20 Calculus of gallbladder without cholecystitis without obstruction; Z95.2 Presence of prosthetic heart valve; Z98.890 Other specified postprocedural states
CPT/HCPCS: 36415; 70450-TC; 71045-TC-FY; 71275-TC; 76705-TC; 76775-TC; 80053; 81003; 82248; 82550; 82565; 83735; 83880; 84100; 84300; 84436; 84439; 84443; 84484; 85025; 85027; 85379; 85610; 85730; 86704; 86706; 86707; 86708; 86709; 87340; 87522; 87804; 93005; 93010; 93306-TC; 93970-TC; 99285-25; C9803; U0003

== ENCOUNTER 2021-06-03 16:46 | Emergency (ER) | payer OTHER, BC ==
[2021-06-03 17:06] VITALS: BP 140/87; TEMP 97.9; BMI 25.1
[2021-06-03 18:21] VITALS: PULSE 105
== END 2021-06-03 18:16 | disposition home or self-care (01) ==
LOC: JER 16:46
DX: K14.8 Other diseases of tongue (principal)
CPT/HCPCS: 99283-25

== ENCOUNTER 2021-09-15 09:31 | Inpatient (IN) | payer OTHER, BC ==
[2021-09-15] MEDS ORDERED: FUROSEMIDE 40 MG/4 ML INJECTABLE VIAL IVPUSH ONE (11:07)
[2021-09-15] MEDS ORDERED: FUROSEMIDE 40 MG/4 ML INJECTABLE VIAL ONE ×2 (11:14→15:31)
[2021-09-15 11:47] LABS: BASO % 0.7 % (0-2.0); HEMATOCRIT 42.6 % (35.4-49); HEMOGLOBIN 14.2 GM/dL (11.7-16.9); LYMPH % 12.7 % (8-40); MCH 32.9 pg (25.7-33.7); MCHC 33.4 g/dl (32.0-35.9); MEAN CELL VOLUME 98.5 fl (80-96); MEAN PLT VOLUME 8.9 fl (7.5-11.1); MONO % 11.3 % (3.8-10.2); NEUT % 73.3 % (42.8-82.8); PLATELET COUNT 194 10^3/uL (134-434); RBC 4.32 M/mm3 (4.00-5.60); RDW 14.7 % (11.9-15.9); WHITE BLOOD COUNT 6.8 K/mm3 (4.0-10.0)
[2021-09-15 12:08] LABS: CHLORIDE 103 mmol/L (98-107); SODIUM 137 mmol/L (136-145)
[2021-09-15 12:10] LABS: ALBUMIN 4.1 g/dl (3.4-5.0); ANION GAP 7 MMOL/L (8-16); BLOOD UREA NITROGEN 44.1 mg/dL (7-18); CALCIUM 9.6 mg/dL (8.5-10.1); CO2 28 mmol/L (21-32); GLUCOSE,RANDOM 96 mg/dL (74-106)
[2021-09-15 12:13] LABS: CREATININE 2.6 mg/dL (0.55-1.3); SGOT/AST 34 U/L (15-37); SGPT/ALT 15 U/L (13-61)
[2021-09-15 12:15] LABS: BILIRUBIN,TOTAL 2.6 mg/dL (0.2-1); TOT PROT 7.4 g/dl (6.4-8.2)
[2021-09-15 12:16] LABS: ALK PHOS 83 U/L (45-117)
[2021-09-15] MEDS ORDERED: INSULIN REGULAR HUMAN 100 UNITS/ML *VIAL IVPUSH ONE (12:40)
[2021-09-15] MEDS ORDERED: DEXTROSE 50%-WATER - 25 GM/50 ML VIAL IVPUSH ONE (12:40)
[2021-09-15] MEDS ORDERED: DEXTROSE 50%-WATER 25 GM/50 ML DISP.SYRIN ONE (12:46)
[2021-09-15] MEDS: FUROSEMIDE 40 MG/4 ML INJECTABLE VIAL IVPUSH SCH (15:38)
[2021-09-15] MEDS ORDERED: SODIUM ZIRCONIUM CYCLOSILICATE (LOKELMA) 5 GM PACKET PO SCH (16:45)
[2021-09-15] MEDS ORDERED: SODIUM ZIRCONIUM CYCLOSILICATE (LOKELMA) 5 GM PACKET ONE (17:19)
[2021-09-15 18:19] LABS: URINE APPEARANCE CLEAR; URINE BILIRUBIN NEGATIVE (NEGATIVE); URINE COLOR YELLOW; URINE GLUCOSE (UA) NEGATIVE (NEGATIVE); URINE KETONE NEGATIVE (NEGATIVE); URINE LEUK ESTERASE NEGATIVE (NEGATIVE); URINE NITRITE NEGATIVE (NEGATIVE); URINE PROTEIN NEGATIVE (NEGATIVE); URINE UROBILINOGEN 0.2 mg/dL (0.2-1.0)
[2021-09-15 21:07] VITALS: BMI 28.3
[2021-09-15] MEDS: APIXABAN 5 MG TABLET PO SCH (21:21)
[2021-09-15] MEDS: METOPROLOL TARTRATE 50 MG TABLET (FP) PO SCH (21:22)
[2021-09-16] MEDS: FUROSEMIDE 40 MG/4 ML INJECTABLE VIAL IVPUSH SCH ×2 (05:51→14:47)
[2021-09-16] MEDS: LEVOTHYROXINE NA 75 MCG TABLET (FP) PO SCH (06:00)
[2021-09-16] MEDS ORDERED: LEVOTHYROXINE NA 50 MCG TABLET (FP) PO SCH (07:00)
[2021-09-16 07:23] LABS: HEMATOCRIT 37.8 % (35.4-49); HEMOGLOBIN 12.7 GM/dL (11.7-16.9); MCH 33.3 pg (25.7-33.7); MCHC 33.6 g/dl (32.0-35.9); MEAN CELL VOLUME 99.1 fl (80-96); MEAN PLT VOLUME 9.3 fl (7.5-11.1); PLATELET COUNT 161 10^3/uL (134-434); RBC 3.82 M/mm3 (4.00-5.60); RDW 14.8 % (11.9-15.9); WHITE BLOOD COUNT 5.3 K/mm3 (4.0-10.0)
[2021-09-16 07:43] LABS: CALCIUM 9.4 mg/dL (8.5-10.1)
[2021-09-16 07:44] LABS: BLOOD UREA NITROGEN 46.6 mg/dL (7-18); MAGNESIUM 2.7 mg/dL (1.8-2.4)
[2021-09-16 07:47] LABS: CREATININE 2.4 mg/dL (0.55-1.3)
[2021-09-16] MEDS: METOPROLOL TARTRATE 50 MG TABLET (FP) PO SCH ×2 (09:41→21:13)
[2021-09-16] MEDS: APIXABAN 5 MG TABLET PO SCH ×2 (09:41→21:13)
[2021-09-16] MEDS: SPIRONOLACTONE 25 MG TABLET PO SCH (09:41)
[2021-09-16] MEDS ORDERED: METOPROLOL TARTRATE 25 MG TABLET (FP) PO ONE (09:56)
[2021-09-16] MEDS ORDERED: METOPROLOL TARTRATE 50 MG TABLET (FP) PO SCH (09:56)
[2021-09-16] MEDS: SIMETHICONE 80 MG TAB.CHEW (FP) PO PRN (14:47)
[2021-09-16] MEDS ORDERED: FUROSEMIDE 40 MG/4 ML INJECTABLE VIAL IVPUSH ONE (17:00)
[2021-09-17] MEDS: FUROSEMIDE 40 MG/4 ML INJECTABLE VIAL IVPUSH SCH ×2 (05:05→14:58)
[2021-09-17] MEDS: LEVOTHYROXINE NA 75 MCG TABLET (FP) PO SCH (06:12)
[2021-09-17 07:13] LABS: HEMATOCRIT 38.8 % (35.4-49); HEMOGLOBIN 13.3 GM/dL (11.7-16.9); MCH 33.8 pg (25.7-33.7); MCHC 34.3 g/dl (32.0-35.9); MEAN CELL VOLUME 98.3 fl (80-96); MEAN PLT VOLUME 8.8 fl (7.5-11.1); PLATELET COUNT 155 10^3/uL (134-434); RBC 3.94 M/mm3 (4.00-5.60); RDW 14.4 % (11.9-15.9); WHITE BLOOD COUNT 5.2 K/mm3 (4.0-10.0)
[2021-09-17 07:30] LABS: CALCIUM 9.3 mg/dL (8.5-10.1)
[2021-09-17 07:31] LABS: BLOOD UREA NITROGEN 41.8 mg/dL (7-18)
[2021-09-17 07:34] LABS: CREATININE 2.3 mg/dL (0.55-1.3)
[2021-09-17] MEDS: FAMOTIDINE 20 MG TABLET PO SCH (09:41)
[2021-09-17] MEDS: SPIRONOLACTONE 25 MG TABLET PO SCH (09:41)
[2021-09-17] MEDS: SIMETHICONE 80 MG TAB.CHEW (FP) PO PRN (09:41)
[2021-09-17] MEDS: METOPROLOL TARTRATE 50 MG TABLET (FP) PO SCH ×2 (09:42→21:13)
[2021-09-17] MEDS: APIXABAN 5 MG TABLET PO SCH ×2 (09:42→21:13)
[2021-09-18] MEDS: LEVOTHYROXINE NA 75 MCG TABLET (FP) PO SCH (06:05)
[2021-09-18] MEDS: FUROSEMIDE 40 MG/4 ML INJECTABLE VIAL IVPUSH SCH ×2 (06:05→14:52)
[2021-09-18 06:56] LABS: BLOOD UREA NITROGEN 35.2 mg/dL (7-18); CALCIUM 9.3 mg/dL (8.5-10.1)
[2021-09-18 06:58] LABS: MAGNESIUM 2.3 mg/dL (1.8-2.4)
[2021-09-18 07:00] LABS: CREATININE 2.2 mg/dL (0.55-1.3); PHOSPHOROUS 3.3 mg/dL (2.5-4.9)
[2021-09-18] MEDS: FAMOTIDINE 20 MG TABLET PO SCH (10:27)
[2021-09-18] MEDS: APIXABAN 5 MG TABLET PO SCH ×2 (10:28→20:59)
[2021-09-18] MEDS: SIMETHICONE 80 MG TAB.CHEW (FP) PO PRN (10:28)
[2021-09-18] MEDS: METOPROLOL TARTRATE 50 MG TABLET (FP) PO SCH ×2 (10:28→20:59)
[2021-09-18] MEDS: SPIRONOLACTONE 25 MG TABLET PO SCH (10:28)
[2021-09-19] MEDS: LEVOTHYROXINE NA 75 MCG TABLET (FP) PO SCH (06:26)
[2021-09-19] MEDS: FUROSEMIDE 40 MG/4 ML INJECTABLE VIAL IVPUSH SCH (06:26)
[2021-09-19 08:11] LABS: BLOOD UREA NITROGEN 30.7 mg/dL (7-18); CALCIUM 9.4 mg/dL (8.5-10.1); MAGNESIUM 2.1 mg/dL (1.8-2.4)
[2021-09-19 08:14] LABS: PHOSPHOROUS 3.3 mg/dL (2.5-4.9)
[2021-09-19] MEDS: METOPROLOL TARTRATE 50 MG TABLET (FP) PO SCH (10:22)
[2021-09-19] MEDS: FAMOTIDINE 20 MG TABLET PO SCH (10:22)
[2021-09-19] MEDS: APIXABAN 5 MG TABLET PO SCH (10:22)
[2021-09-19] MEDS: SPIRONOLACTONE 25 MG TABLET PO SCH (10:22)
[2021-09-19 10:49] VITALS: TEMP 98.2
[2021-09-19 11:12] LABS: HEMOGLOBIN 13.8 GM/dL (11.7-16.9); MCHC 33.7 g/dl (32.0-35.9); PLATELET COUNT 166 10^3/uL (134-434); RBC 4.18 M/mm3 (4.00-5.60); RDW 14.6 % (11.9-15.9); WHITE BLOOD COUNT 5.9 K/mm3 (4.0-10.0)
[2021-09-19] MEDS ORDERED: SPIRONOLACTONE 25 MG TABLET PO SCH (11:57)
[2021-09-19] MEDS ORDERED: FUROSEMIDE 40 MG TABLET (FP) PO SCH (14:00)
[2021-09-19 18:23] VITALS: BP 113/87
[2021-09-19 19:50] VITALS: PULSE 86
== END 2021-09-19 20:00 | disposition home or self-care (01) | DRG 291 ==
LOC: JER 09:31 → JERBED 11:05 → J2W 20:25
PROVIDERS: ADMIT Internal Medicine; ATTEND Internal Medicine
DX: I13.0 Hypertensive heart and chronic kidney disease with heart failure and stage 1 through stage 4 chronic kidney disease, or unspecified chronic kidney disease (principal); I50.33 Acute on chronic diastolic (congestive) heart failure; I48.19 Other persistent atrial fibrillation; N17.9 Acute kidney failure, unspecified; R18.8 Other ascites; I27.81 Cor pulmonale (chronic); E78.5 Hyperlipidemia, unspecified; E03.9 Hypothyroidism, unspecified; K21.9 Gastro-esophageal reflux disease without esophagitis; N18.30 Chronic kidney disease, stage 3 unspecified; E87.70 Fluid overload, unspecified; E87.5 Hyperkalemia
CPT/HCPCS: 36415; 71045-TC-FY; 76775-TC; 80048; 80053; 81003; 82436; 82550; 82570; 83735; 83880; 84100; 84133; 84156; 84300; 84484; 85025; 85027; 93005; 93010; 93306-TC; 97116-GP; 97161-GP; 99285-25; C9803; U0003; U0005

== ENCOUNTER 2021-11-04 11:56 | Inpatient (IN) | payer OTHER, BC ==
[2021-11-04 13:26] LABS: BASO % 0.9 % (0-2.0); EOS % 2.2 % (0-4.5); HEMATOCRIT 31.6 % (35.4-49); HEMOGLOBIN 10.4 GM/dL (11.7-16.9); LYMPH % 11.3 % (8-40); MCH 32.5 pg (25.7-33.7); MCHC 32.9 g/dl (32.0-35.9); MEAN CELL VOLUME 98.9 fl (80-96); MONO % 8.8 % (3.8-10.2); NEUT % 76.8 % (42.8-82.8); PLATELET COUNT 243 10^3/uL (134-434); RDW 14.9 % (11.9-15.9); WHITE BLOOD COUNT 5.4 K/mm3 (4.0-10.0)
[2021-11-04 13:39] LABS: INR 3.24 (0.83-1.09); PROTHROMBIN TIME (PATIENT) 37.7 SEC (9.7-13.0)
[2021-11-04 13:42] LABS: ACTIVATED PTT 39.4 SECONDS (25.2-36.5)
[2021-11-04] MEDS ORDERED: PANTOPRAZOLE SODIUM 80 MG in SODIUM CHLORIDE 100 ML IVPB SCH (13:45)
[2021-11-04 13:51] LABS: CHLORIDE 102 mmol/L (98-107); SODIUM 135 mmol/L (136-145)
[2021-11-04 13:53] LABS: ANION GAP 8 MMOL/L (8-16); CALCIUM 10.3 mg/dL (8.5-10.1); CO2 26 mmol/L (21-32); GLUCOSE,RANDOM 127 mg/dL (74-106)
[2021-11-04 13:57] LABS: CREATININE 3.5 mg/dL (0.55-1.3); SGOT/AST 32 U/L (15-37); SGPT/ALT 13 U/L (13-61)
[2021-11-04 13:59] LABS: BILIRUBIN,TOTAL 1.7 mg/dL (0.2-1); TOT PROT 7.1 g/dl (6.4-8.2)
[2021-11-04 14:00] LABS: ALK PHOS 115 U/L (45-117)
[2021-11-04 14:04] LABS: BLOOD UREA NITROGEN 93.6 mg/dL (7-18)
[2021-11-04] MEDS ORDERED: OCTREOTIDE ACETATE 50 MCG/1 ML - 1 ML VIAL IVPUSH ONE (14:17)
[2021-11-04] MEDS ORDERED: PANTOPRAZOLE SODIUM 40 MG VIAL IVPUSH ONE (14:17)
[2021-11-04] MEDS ORDERED: CEFTRIAXONE 1,000 MG in DEXTROSE 5%-WATER - 50 ML IVPB ONE (14:20)
[2021-11-04] MEDS ORDERED: CEFTRIAXONE 1 GM/50 ML BAG ONE (14:34)
[2021-11-04] MEDS ORDERED: PANTOPRAZOLE SODIUM 40 MG VIAL ONE (14:35)
[2021-11-04] MEDS ORDERED: OCTREOTIDE ACETATE 100 MCG/1 ML ONE (14:36)
[2021-11-04] MEDS: PANTOPRAZOLE SODIUM 160 MG in SODIUM CHLORIDE 290 ML IVPB SCH (15:10)
[2021-11-04] MEDS ORDERED: SODIUM CHLORIDE 1,000 ML IV SCH (15:45)
[2021-11-04] MEDS ORDERED: METOPROLOL TARTRATE 50 MG, METOPROLOL TARTRATE 25 MG PO SCH (16:00)
[2021-11-04] MEDS ORDERED: METOPROLOL TARTRATE 50 MG TABLET (FP) PO SCH ×3 (17:03→22:00)
[2021-11-04] MEDS: FUROSEMIDE 40 MG TABLET (FP) PO SCH (17:45)
[2021-11-04] MEDS ORDERED: FUROSEMIDE 40 MG TABLET (FP) ONE (18:52)
[2021-11-04] MEDS: METOPROLOL TARTRATE 50 MG TABLET (FP) PO SCH (23:21)
[2021-11-04 23:34] LABS: URINE APPEARANCE CLEAR; URINE BILIRUBIN NEGATIVE (NEGATIVE); URINE COLOR YELLOW; URINE GLUCOSE (UA) NEGATIVE (NEGATIVE); URINE KETONE NEGATIVE (NEGATIVE); URINE LEUK ESTERASE NEGATIVE (NEGATIVE); URINE NITRITE NEGATIVE (NEGATIVE); URINE PROTEIN TRACE (NEGATIVE); URINE UROBILINOGEN 0.2 mg/dL (0.2-1.0)
[2021-11-04 23:48] VITALS: BMI 26.6
[2021-11-05 00:18] LABS: HEMATOCRIT 30.5 % (35.4-49); HEMOGLOBIN 10.4 GM/dL (11.7-16.9); MCH 33.2 pg (25.7-33.7); MCHC 34.1 g/dl (32.0-35.9); MEAN CELL VOLUME 97.2 fl (80-96); MEAN PLT VOLUME 8.5 fl (7.5-11.1); PLATELET COUNT 206 10^3/uL (134-434); RBC 3.14 M/mm3 (4.00-5.60); RDW 14.4 % (11.9-15.9); WHITE BLOOD COUNT 4.6 K/mm3 (4.0-10.0)
[2021-11-05] MEDS ORDERED: LEVOTHYROXINE NA 75 MCG TABLET (FP) PO SCH (07:00)
[2021-11-05 08:45] LABS: HEMATOCRIT 29.2 % (35.4-49); MCHC 34.3 g/dl (32.0-35.9); MEAN CELL VOLUME 99.1 fl (80-96); MEAN PLT VOLUME 8.9 fl (7.5-11.1); PLATELET COUNT 206 10^3/uL (134-434); RBC 2.94 M/mm3 (4.00-5.60); RDW 14.8 % (11.9-15.9); WHITE BLOOD COUNT 4.3 K/mm3 (4.0-10.0)
[2021-11-05 09:13] LABS: ALBUMIN 3.7 g/dl (3.4-5.0); BLOOD UREA NITROGEN 93.9 mg/dL (7-18); MAGNESIUM 2.3 mg/dL (1.8-2.4)
[2021-11-05 09:15] LABS: CREATININE 3.4 mg/dL (0.55-1.3)
[2021-11-05 09:16] LABS: PHOSPHOROUS 4.7 mg/dL (2.5-4.9)
[2021-11-05 09:17] LABS: BILIRUBIN,TOTAL 1.7 mg/dL (0.2-1); TOT PROT 6.3 g/dl (6.4-8.2)
[2021-11-05] MEDS ORDERED: cefTRIAXone SODIUM 1 GM VIAL ONE ×2 (09:18→16:28)
[2021-11-05] MEDS ORDERED: DEXTROSE 5%-WATER - 50 ML IVPB ONE ×2 (09:19→16:28)
[2021-11-05] MEDS: FUROSEMIDE 40 MG TABLET (FP) PO SCH (09:33)
[2021-11-05] MEDS: METOPROLOL TARTRATE 50 MG TABLET (FP) PO SCH ×2 (09:33→21:02)
[2021-11-05] MEDS ORDERED: CEFTRIAXONE 1 GM in DEXTROSE 5%-WATER - 50 ML IVPB SCH (10:00)
[2021-11-05] MEDS: SODIUM ZIRCONIUM CYCLOSILICATE (LOKELMA) 5 GM PACKET PO SCH (10:48)
[2021-11-05] MEDS ORDERED: CEFTRIAXONE 2 GM in DEXTROSE 5%-WATER 100 ML IVPB SCH (12:30)
[2021-11-05] MEDS ORDERED: CEFTRIAXONE 2 GM in DEXTROSE 5%-WATER - 50 ML IVPB SCH (12:30)
[2021-11-05 13:12] LABS: INR 2.52 (0.83-1.09); PROTHROMBIN TIME (PATIENT) 29.6 SEC (9.7-13.0)
[2021-11-05] MEDS: PANTOPRAZOLE SODIUM 160 MG in SODIUM CHLORIDE 290 ML IVPB SCH (13:20)
[2021-11-05] MEDS ORDERED: CEFTRIAXONE 1 GM in DEXTROSE 5%-WATER - 50 ML IVPB ONE (14:30)
[2021-11-05] MEDS: SUCRALFATE 1 GM TABLET (FP) PO SCH (21:02)
[2021-11-06 08:18] LABS: HEMOGLOBIN 10.6 GM/dL (11.7-16.9); MCH 33.1 pg (25.7-33.7); MCHC 33.2 g/dl (32.0-35.9); MEAN CELL VOLUME 99.7 fl (80-96); MEAN PLT VOLUME 8.6 fl (7.5-11.1); PLATELET COUNT 217 10^3/uL (134-434); RBC 3.21 M/mm3 (4.00-5.60); RDW 14.6 % (11.9-15.9); WHITE BLOOD COUNT 5.5 K/mm3 (4.0-10.0)
[2021-11-06 08:21] LABS: INR 1.98 (0.83-1.09); PROTHROMBIN TIME (PATIENT) 22.9 SEC (9.7-13.0)
[2021-11-06 08:37] LABS: ALBUMIN 4.1 g/dl (3.4-5.0); BLOOD UREA NITROGEN 91.5 mg/dL (7-18); CALCIUM 9.8 mg/dL (8.5-10.1)
[2021-11-06 08:40] LABS: CREATININE 3.3 mg/dL (0.55-1.3)
[2021-11-06 08:42] LABS: BILIRUBIN,TOTAL 1.8 mg/dL (0.2-1)
[2021-11-06] MEDS: PANTOPRAZOLE SODIUM 160 MG in SODIUM CHLORIDE 290 ML IVPB SCH (09:18)
[2021-11-06] MEDS ORDERED: DEXTROSE 5%-WATER 100 ML IVPB ONE (10:56)
[2021-11-06] MEDS ORDERED: cefTRIAXone SODIUM 1 GM VIAL ONE (10:56)
[2021-11-06] MEDS: CEFTRIAXONE 2 GM in DEXTROSE 5%-WATER 100 ML IVPB SCH (11:27)
[2021-11-06] MEDS: SODIUM ZIRCONIUM CYCLOSILICATE (LOKELMA) 5 GM PACKET PO SCH (11:27)
[2021-11-06] MEDS: METOPROLOL TARTRATE 50 MG TABLET (FP) PO SCH ×2 (11:28→21:42)
[2021-11-06] MEDS: SUCRALFATE 1 GM TABLET (FP) PO SCH ×2 (11:29→21:42)
[2021-11-07] MEDS: PANTOPRAZOLE SODIUM 160 MG in SODIUM CHLORIDE 290 ML IVPB SCH ×2 (04:36→23:22)
[2021-11-07 07:25] LABS: INR 1.95 (0.83-1.09); PROTHROMBIN TIME (PATIENT) 22.6 SEC (9.7-13.0)
[2021-11-07 07:27] LABS: HEMATOCRIT 30.2 % (35.4-49); HEMOGLOBIN 10.2 GM/dL (11.7-16.9); MCH 33.3 pg (25.7-33.7); MCHC 33.9 g/dl (32.0-35.9); MEAN CELL VOLUME 98.3 fl (80-96); MEAN PLT VOLUME 8.7 fl (7.5-11.1); PLATELET COUNT 195 10^3/uL (134-434); RBC 3.08 M/mm3 (4.00-5.60); RDW 14.6 % (11.9-15.9); WHITE BLOOD COUNT 4.5 K/mm3 (4.0-10.0)
[2021-11-07 07:33] LABS: ALBUMIN 3.6 g/dl (3.4-5.0); CALCIUM 9.3 mg/dL (8.5-10.1)
[2021-11-07 07:34] LABS: BLOOD UREA NITROGEN 89.7 mg/dL (7-18); MAGNESIUM 2.3 mg/dL (1.8-2.4)
[2021-11-07 07:37] LABS: PHOSPHOROUS 3.9 mg/dL (2.5-4.9)
[2021-11-07 07:38] LABS: BILIRUBIN,TOTAL 1.3 mg/dL (0.2-1); TOT PROT 6.4 g/dl (6.4-8.2)
[2021-11-07] MEDS ORDERED: DEXTROSE 5%-WATER 100 ML IVPB ONE ×2 (09:43→09:44)
[2021-11-07] MEDS ORDERED: cefTRIAXone SODIUM 1 GM VIAL ONE ×2 (09:43→09:44)
[2021-11-07] MEDS: SODIUM ZIRCONIUM CYCLOSILICATE (LOKELMA) 5 GM PACKET PO SCH (09:45)
[2021-11-07] MEDS: SUCRALFATE 1 GM TABLET (FP) PO SCH ×2 (09:47→23:21)
[2021-11-07] MEDS: METOPROLOL TARTRATE 50 MG TABLET (FP) PO SCH ×2 (09:47→23:20)
[2021-11-07] MEDS: CEFTRIAXONE 2 GM in DEXTROSE 5%-WATER 100 ML IVPB SCH (09:47)
[2021-11-07] MEDS ORDERED: PEG 3350/NA SULF BICARB CL/KCL 4000 ML SOLN.RECON PO ONE (12:43)
[2021-11-07] MEDS ORDERED: BISACODYL 5 MG TABLET.DR (FP) PO ONE (20:00)
[2021-11-08 07:29] LABS: BASO % 0.9 % (0-2.0); EOS % 1.1 % (0-4.5); HEMATOCRIT 31.4 % (35.4-49); HEMOGLOBIN 10.3 GM/dL (11.7-16.9); LYMPH % 10.6 % (8-40); MCH 32.9 pg (25.7-33.7); MEAN CELL VOLUME 99.7 fl (80-96); MEAN PLT VOLUME 9.2 fl (7.5-11.1); MONO % 12.5 % (3.8-10.2); NEUT % 74.9 % (42.8-82.8); PLATELET COUNT 235 10^3/uL (134-434); RBC 3.15 M/mm3 (4.00-5.60); RDW 14.7 % (11.9-15.9); WHITE BLOOD COUNT 6.1 K/mm3 (4.0-10.0)
[2021-11-08 08:04] LABS: CALCIUM 9.9 mg/dL (8.5-10.1)
[2021-11-08 08:05] LABS: ALBUMIN 3.9 g/dl (3.4-5.0); BLOOD UREA NITROGEN 85.6 mg/dL (7-18); MAGNESIUM 2.4 mg/dL (1.8-2.4)
[2021-11-08 08:07] LABS: PHOSPHOROUS 4.2 mg/dL (2.5-4.9)
[2021-11-08 08:08] LABS: CREATININE 3.1 mg/dL (0.55-1.3)
[2021-11-08 08:09] LABS: BILIRUBIN,TOTAL 1.4 mg/dL (0.2-1); TOT PROT 6.8 g/dl (6.4-8.2)
[2021-11-08 08:11] LABS: INR 1.69 (0.83-1.09); PROTHROMBIN TIME (PATIENT) 19.5 SEC (9.7-13.0)
[2021-11-08] MEDS ORDERED: DEXTROSE 5%-WATER 100 ML IVPB ONE (08:38)
[2021-11-08] MEDS ORDERED: cefTRIAXone SODIUM 1 GM VIAL ONE (08:38)
[2021-11-08] MEDS: CEFTRIAXONE 2 GM in DEXTROSE 5%-WATER 100 ML IVPB SCH (09:26)
[2021-11-08] MEDS: METOPROLOL TARTRATE 50 MG TABLET (FP) PO SCH ×2 (09:27→23:09)
[2021-11-08] MEDS: SUCRALFATE 1 GM TABLET (FP) PO SCH (09:28)
[2021-11-09 07:34] LABS: HEMATOCRIT 32.2 % (35.4-49); HEMOGLOBIN 10.5 GM/dL (11.7-16.9); MCH 32.6 pg (25.7-33.7); MCHC 32.7 g/dl (32.0-35.9); MEAN CELL VOLUME 99.6 fl (80-96); MEAN PLT VOLUME 9.4 fl (7.5-11.1); PLATELET COUNT 241 10^3/uL (134-434); RBC 3.24 M/mm3 (4.00-5.60); RDW 14.7 % (11.9-15.9); WHITE BLOOD COUNT 6.9 K/mm3 (4.0-10.0)
[2021-11-09 08:03] LABS: INR 1.75 (0.83-1.09); PROTHROMBIN TIME (PATIENT) 20.2 SEC (9.7-13.0)
[2021-11-09 08:11] LABS: PHOSPHOROUS 3.9 mg/dL (2.5-4.9)
[2021-11-09 08:12] LABS: ALBUMIN 3.7 g/dl (3.4-5.0); CALCIUM 9.4 mg/dL (8.5-10.1); CREATININE 3.2 mg/dL (0.55-1.3)
[2021-11-09 08:13] LABS: BLOOD UREA NITROGEN 85.7 mg/dL (7-18); MAGNESIUM 2.3 mg/dL (1.8-2.4); TOT PROT 6.4 g/dl (6.4-8.2)
[2021-11-09 08:14] LABS: BILIRUBIN,TOTAL 1.4 mg/dL (0.2-1)
[2021-11-09 08:51] LABS: ANISOCYTOSIS 0; HELMET CELLS 0; HOWELL-JOLLY BODIES 0; MACROCYTOSIS 0; OVALOCYTE 0; PLATELET ESTIMATE NORMAL; ROULEAU 0; SICKELED CELLS 0; TARGET CELLS 0; TEAR DROP CELLS 0; TOXIC GRANULATION 0
[2021-11-09] MEDS ORDERED: DEXTROSE 5%-WATER 100 ML IVPB ONE (09:39)
[2021-11-09] MEDS ORDERED: cefTRIAXone SODIUM 1 GM VIAL ONE (09:39)
[2021-11-09] MEDS ORDERED: SPIRONOLACTONE 25 MG TABLET PO SCH (10:00)
[2021-11-09] MEDS: PANTOPRAZOLE 40 MG TABLET PO SCH (10:02)
[2021-11-09] MEDS: FUROSEMIDE 40 MG TABLET (FP) PO SCH (10:02)
[2021-11-09] MEDS: METOPROLOL TARTRATE 50 MG TABLET (FP) PO SCH ×2 (13:40→21:24)
[2021-11-09 17:56] LABS: BF WBC & OTHER NUCLEATED CELLS 312 /mm3
[2021-11-09 19:28] LABS: BODY FLUID MACROPHAGES 63 %; BODY FLUID MESOTHELIAL 14 %
[2021-11-09] MEDS: APIXABAN 5 MG TABLET PO SCH (21:25)
[2021-11-10 07:33] LABS: BASO % 1.3 % (0-2.0); EOS % 4.7 % (0-4.5); HEMATOCRIT 30.1 % (35.4-49); HEMOGLOBIN 9.8 GM/dL (11.7-16.9); LYMPH % 12.6 % (8-40); MCH 32.6 pg (25.7-33.7); MCHC 32.6 g/dl (32.0-35.9); MEAN PLT VOLUME 8.9 fl (7.5-11.1); MONO % 13.1 % (3.8-10.2); NEUT % 68.3 % (42.8-82.8); PLATELET COUNT 212 10^3/uL (134-434); RBC 3.01 M/mm3 (4.00-5.60); RDW 14.6 % (11.9-15.9); WHITE BLOOD COUNT 5.1 K/mm3 (4.0-10.0)
[2021-11-10 08:11] LABS: BLOOD UREA NITROGEN 80.8 mg/dL (7-18); CALCIUM 8.9 mg/dL (8.5-10.1)
[2021-11-10 08:12] LABS: MAGNESIUM 2.3 mg/dL (1.8-2.4)
[2021-11-10 08:14] LABS: CREATININE 3.1 mg/dL (0.55-1.3); PHOSPHOROUS 3.3 mg/dL (2.5-4.9)
[2021-11-10 08:16] LABS: TOT PROT 5.3 g/dl (6.4-8.2)
[2021-11-10] MEDS: FUROSEMIDE 40 MG TABLET (FP) PO SCH (09:51)
[2021-11-10] MEDS: PANTOPRAZOLE 40 MG TABLET PO SCH (09:51)
[2021-11-10] MEDS: APIXABAN 5 MG TABLET PO SCH (09:52)
[2021-11-10] MEDS: METOPROLOL TARTRATE 50 MG TABLET (FP) PO SCH (09:52)
[2021-11-10] MEDS ORDERED: POTASSIUM CHLORIDE ORAL LIQUID 20 MEQ/15 ML PO ONE (10:15)
[2021-11-10 13:36] VITALS: BP 110/63; PULSE 106; TEMP 97.8
[2021-11-10] MEDS ORDERED: FUROSEMIDE 40 MG/4 ML INJECTABLE VIAL IVPUSH ONE (14:00)
[2021-11-11 14:08] LABS: BODY FLUID ALBUMIN 2.7 g/dL (Not Estab.)
== END 2021-11-10 18:36 | disposition home or self-care (01) | DRG 378 ==
LOC: JER 11:56 → JERBED 15:13 → J4W 22:53
PROVIDERS: ADMIT Internal Medicine; ATTEND Internal Medicine
PROC: 0DB98ZX Excision of Duodenum, Via Natural or Artificial Opening Endoscopic, Diagnostic (ICD-10-PCS; 2021-11-07)
PROC: 0DJD8ZZ Inspection of Lower Intestinal Tract, Via Natural or Artificial Opening Endoscopic (ICD-10-PCS; 2021-11-08)
PROC: 0DB58ZX Excision of Esophagus, Via Natural or Artificial Opening Endoscopic, Diagnostic (ICD-10-PCS; 2021-11-08)
PROC: 0DB68ZX Excision of Stomach, Via Natural or Artificial Opening Endoscopic, Diagnostic (ICD-10-PCS; 2021-11-08)
PROC: 0W9G30Z Drainage of Peritoneal Cavity with Drainage Device, Percutaneous Approach (ICD-10-PCS; principal; 2021-11-09)
DX: K92.2 Gastrointestinal hemorrhage, unspecified (principal); I48.19 Other persistent atrial fibrillation; N17.9 Acute kidney failure, unspecified; K76.6 Portal hypertension; D62 Acute posthemorrhagic anemia; I13.0 Hypertensive heart and chronic kidney disease with heart failure and stage 1 through stage 4 chronic kidney disease, or unspecified chronic kidney disease; I50.32 Chronic diastolic (congestive) heart failure; R18.8 Other ascites; K55.8 Other vascular disorders of intestine; E03.9 Hypothyroidism, unspecified; E78.5 Hyperlipidemia, unspecified; K74.60 Unspecified cirrhosis of liver; E87.5 Hyperkalemia; M10.9 Gout, unspecified; K21.9 Gastro-esophageal reflux disease without esophagitis; N40.0 Benign prostatic hyperplasia without lower urinary tract symptoms; I27.81 Cor pulmonale (chronic); N18.31 Chronic kidney disease, stage 3a; K55.20 Angiodysplasia of colon without hemorrhage; K44.9 Diaphragmatic hernia without obstruction or gangrene; K29.70 Gastritis, unspecified, without bleeding; Z95.2 Presence of prosthetic heart valve
CPT/HCPCS: 36415; 71045-TC-FY; 76942-TC; 80048; 80053; 81003; 82042; 82105; 82150; 82272; 82378; 82465; 82550; 82728; 82945; 83036; 83516; 83540; 83550; 83605; 83615; 83735; 83986; 84100; 84157; 84443; 84478; 84484; 85025; 85027; 85610; 85730; 86038; 86850; 86900; 86901; 87070; 87075; 87086; 87102; 87116; 87205; 87206; 87210; 88108; 88305-TC; 93005; 93010; 97116-GP; 97161-GP; 99285-25; C9803; U0003; U0005

== ENCOUNTER 2021-11-19 10:03 | Inpatient (IN) | payer OTHER, BC ==
[2021-11-19 10:45] VITALS: BMI 23.9
[2021-11-19 11:02] LABS: BASO % 0.6 % (0-2.0); EOS % 0.2 % (0-4.5); HEMATOCRIT 15.4 % (35.4-49); LYMPH % 7.2 % (8-40); MCH 34.4 pg (25.7-33.7); MCHC 33.7 g/dl (32.0-35.9); MEAN CELL VOLUME 101.9 fl (80-96); MEAN PLT VOLUME 8.2 fl (7.5-11.1); MONO % 11.4 % (3.8-10.2); NEUT % 80.6 % (42.8-82.8); PLATELET COUNT 306 10^3/uL (134-434); RBC 1.51 M/mm3 (4.00-5.60); RDW 16.6 % (11.9-15.9); WHITE BLOOD COUNT 7.8 K/mm3 (4.0-10.0)
[2021-11-19 11:03] LABS: INR 2.49 (0.83-1.09); PROTHROMBIN TIME (PATIENT) 28.9 SEC (9.7-13.0)
[2021-11-19 11:06] LABS: ACTIVATED PTT 30.9 SECONDS (25.2-36.5)
[2021-11-19 11:07] LABS: HEMOGLOBIN 5.2 GM/dL (11.7-16.9)
[2021-11-19 11:18] LABS: CALCIUM 10.2 mg/dL (8.5-10.1)
[2021-11-19 11:19] LABS: ALBUMIN 3.5 g/dl (3.4-5.0); BLOOD UREA NITROGEN 72.6 mg/dL (7-18)
[2021-11-19 11:22] LABS: CREATININE 2.2 mg/dL (0.55-1.3)
[2021-11-19 11:23] LABS: BILIRUBIN,TOTAL 1.2 mg/dL (0.2-1); TOT PROT 6.3 g/dl (6.4-8.2)
[2021-11-19] MEDS ORDERED: ONDANSETRON 4 MG/2 ML VIAL IVPUSH PRN (16:18)
[2021-11-19] MEDS ORDERED: ACETAMINOPHEN 325 MG TABLET (FP) PO PRN (16:18)
[2021-11-19] MEDS ORDERED: SODIUM CHLORIDE 1,000 ML IV SCH (18:00)
[2021-11-19] MEDS ORDERED: SUCRALFATE 1 GM TABLET (FP) ONE (22:20)
[2021-11-19] MEDS: SUCRALFATE 1 GM TABLET (FP) PO SCH (22:23)
[2021-11-20] MEDS: LEVOTHYROXINE NA 75 MCG TABLET (FP) PO SCH (06:29)
[2021-11-20 07:28] LABS: HEMATOCRIT 21.6 % (35.4-49); HEMOGLOBIN 7.3 GM/dL (11.7-16.9); MCH 32.5 pg (25.7-33.7); MCHC 33.8 g/dl (32.0-35.9); MEAN CELL VOLUME 96.2 fl (80-96); MEAN PLT VOLUME 8.4 fl (7.5-11.1); PLATELET COUNT 247 10^3/uL (134-434); RBC 2.24 M/mm3 (4.00-5.60); RDW 18.3 % (11.9-15.9); WHITE BLOOD COUNT 6.4 K/mm3 (4.0-10.0)
[2021-11-20 07:38] LABS: CALCIUM 8.8 mg/dL (8.5-10.1)
[2021-11-20 07:42] LABS: CREATININE 1.8 mg/dL (0.55-1.3)
[2021-11-20] MEDS: PANTOPRAZOLE 40 MG TABLET PO SCH (09:56)
[2021-11-20] MEDS: SUCRALFATE 1 GM TABLET (FP) PO SCH ×2 (09:56→23:24)
[2021-11-20 20:55] LABS: BASO % 0.6 % (0-2.0); EOS % 1.8 % (0-4.5); HEMATOCRIT 20.6 % (35.4-49); LYMPH % 9.4 % (8-40); MCH 31.6 pg (25.7-33.7); MCHC 32.8 g/dl (32.0-35.9); MEAN CELL VOLUME 96.5 fl (80-96); MEAN PLT VOLUME 7.8 fl (7.5-11.1); MONO % 13.7 % (3.8-10.2); NEUT % 74.5 % (42.8-82.8); PLATELET COUNT 257 10^3/uL (134-434); RBC 2.14 M/mm3 (4.00-5.60); RDW 18.4 % (11.9-15.9); WHITE BLOOD COUNT 6.7 K/mm3 (4.0-10.0)
[2021-11-20 21:04] LABS: HEMOGLOBIN 6.8 GM/dL (11.7-16.9)
[2021-11-21] MEDS ORDERED: FUROSEMIDE 40 MG/4 ML INJECTABLE VIAL IVPUSH ONE (04:11)
[2021-11-21] MEDS: LEVOTHYROXINE NA 75 MCG TABLET (FP) PO SCH ×2 (06:22→10:13)
[2021-11-21 07:33] LABS: BASO % 0.6 % (0-2.0); EOS % 2.8 % (0-4.5); HEMATOCRIT 24.6 % (35.4-49); HEMOGLOBIN 8.2 GM/dL (11.7-16.9); LYMPH % 11.1 % (8-40); MCH 31.5 pg (25.7-33.7); MCHC 33.2 g/dl (32.0-35.9); MEAN CELL VOLUME 94.8 fl (80-96); MONO % 15.3 % (3.8-10.2); NEUT % 70.2 % (42.8-82.8); PLATELET COUNT 254 10^3/uL (134-434); RDW 20.6 % (11.9-15.9); WHITE BLOOD COUNT 6.3 K/mm3 (4.0-10.0)
[2021-11-21 07:57] LABS: CALCIUM 8.8 mg/dL (8.5-10.1)
[2021-11-21 07:58] LABS: ALBUMIN 3.2 g/dl (3.4-5.0); BLOOD UREA NITROGEN 48.6 mg/dL (7-18); MAGNESIUM 2.5 mg/dL (1.8-2.4)
[2021-11-21 08:01] LABS: CREATININE 1.6 mg/dL (0.55-1.3); PHOSPHOROUS 3.4 mg/dL (2.5-4.9)
[2021-11-21 08:02] LABS: BILIRUBIN,TOTAL 2.7 mg/dL (0.2-1)
[2021-11-21 08:03] LABS: TOT PROT 5.6 g/dl (6.4-8.2)
[2021-11-21 08:44] LABS: ANISOCYTOSIS 2+; MACROCYTOSIS 1+; PLATELET ESTIMATE NORMAL
[2021-11-21] MEDS: POLYETHYLENE GLYCOL (HEALTHYLAX) 3350 17 GM PACKET PO SCH ×2 (10:13→21:54)
[2021-11-21] MEDS: PANTOPRAZOLE 40 MG TABLET PO SCH (10:13)
[2021-11-21] MEDS ORDERED: METOPROLOL TARTRATE 50 MG TABLET (FP) PO SCH (11:15)
[2021-11-21 11:43] LABS: INR 1.66 (0.83-1.09); PROTHROMBIN TIME (PATIENT) 19.2 SEC (9.7-13.0)
[2021-11-21 13:20] LABS: BASO % 0.8 % (0-2.0); EOS % 3.2 % (0-4.5); HEMATOCRIT 24.1 % (35.4-49); HEMOGLOBIN 7.8 GM/dL (11.7-16.9); LYMPH % 11.1 % (8-40); MCH 30.6 pg (25.7-33.7); MCHC 32.3 g/dl (32.0-35.9); MEAN CELL VOLUME 94.6 fl (80-96); MEAN PLT VOLUME 7.7 fl (7.5-11.1); MONO % 12.8 % (3.8-10.2); NEUT % 72.1 % (42.8-82.8); PLATELET COUNT 252 10^3/uL (134-434); RBC 2.54 M/mm3 (4.00-5.60); RDW 19.8 % (11.9-15.9); WHITE BLOOD COUNT 5.5 K/mm3 (4.0-10.0)
[2021-11-21] MEDS: METOPROLOL TARTRATE 25 MG TABLET (FP) PO SCH ×2 (19:04→21:53)
[2021-11-21 21:30] LABS: BASO % 0.7 % (0-2.0); EOS % 4.7 % (0-4.5); HEMOGLOBIN 9.4 GM/dL (11.7-16.9); LYMPH % 13.7 % (8-40); MCH 31.3 pg (25.7-33.7); MCHC 33.7 g/dl (32.0-35.9); MEAN CELL VOLUME 92.8 fl (80-96); MEAN PLT VOLUME 7.6 fl (7.5-11.1); MONO % 14.7 % (3.8-10.2); NEUT % 66.2 % (42.8-82.8); PLATELET COUNT 261 10^3/uL (134-434); RBC 3.01 M/mm3 (4.00-5.60); RDW 18.3 % (11.9-15.9)
[2021-11-22] MEDS: LEVOTHYROXINE NA 75 MCG TABLET (FP) PO SCH (06:14)
[2021-11-22 07:29] LABS: BASO % 0.7 % (0-2.0); EOS % 6.1 % (0-4.5); HEMATOCRIT 27.7 % (35.4-49); HEMOGLOBIN 9.4 GM/dL (11.7-16.9); LYMPH % 16.4 % (8-40); MCH 31.7 pg (25.7-33.7); MEAN CELL VOLUME 93.2 fl (80-96); MEAN PLT VOLUME 8.3 fl (7.5-11.1); MONO % 14.5 % (3.8-10.2); NEUT % 62.3 % (42.8-82.8); PLATELET COUNT 244 10^3/uL (134-434); RBC 2.98 M/mm3 (4.00-5.60); RDW 18.2 % (11.9-15.9); WHITE BLOOD COUNT 5.8 K/mm3 (4.0-10.0)
[2021-11-22 07:41] LABS: CALCIUM 8.1 mg/dL (8.5-10.1)
[2021-11-22 07:42] LABS: ALBUMIN 3.1 g/dl (3.4-5.0); BLOOD UREA NITROGEN 41.1 mg/dL (7-18)
[2021-11-22 07:45] LABS: CREATININE 1.6 mg/dL (0.55-1.3); PHOSPHOROUS 3.2 mg/dL (2.5-4.9)
[2021-11-22 07:46] LABS: TOT PROT 5.5 g/dl (6.4-8.2)
[2021-11-22 07:47] LABS: BILIRUBIN,TOTAL 2.8 mg/dL (0.2-1)
[2021-11-22 07:49] LABS: BILIRUBIN,DIRECT 0.8 mg/dL (0.0-0.2)
[2021-11-22 07:50] LABS: TOT PROT 5.4 g/dl (6.4-8.2)
[2021-11-22 07:52] LABS: BILIRUBIN,TOTAL 2.8 mg/dL (0.2-1)
[2021-11-22] MEDS: POLYETHYLENE GLYCOL (HEALTHYLAX) 3350 17 GM PACKET PO SCH ×2 (09:42→21:27)
[2021-11-22] MEDS: PANTOPRAZOLE 40 MG TABLET PO SCH (09:42)
[2021-11-22] MEDS: METOPROLOL TARTRATE 25 MG TABLET (FP) PO SCH ×2 (09:42→21:27)
[2021-11-22] MEDS ORDERED: IRON SUCROSE INJECTION 200 MG in SODIUM CHLORIDE 90 ML IVPB ONE (12:00)
[2021-11-23] MEDS: LEVOTHYROXINE NA 75 MCG TABLET (FP) PO SCH (06:13)
[2021-11-23 07:28] LABS: BASO % 0.7 % (0-2.0); EOS % 6.2 % (0-4.5); HEMATOCRIT 27.6 % (35.4-49); HEMOGLOBIN 9.3 GM/dL (11.7-16.9); LYMPH % 13.5 % (8-40); MCH 31.3 pg (25.7-33.7); MCHC 33.6 g/dl (32.0-35.9); MEAN PLT VOLUME 7.8 fl (7.5-11.1); MONO % 14.1 % (3.8-10.2); NEUT % 65.5 % (42.8-82.8); PLATELET COUNT 236 10^3/uL (134-434); RBC 2.97 M/mm3 (4.00-5.60); RDW 17.1 % (11.9-15.9); RETICULOCYTES 3.92 % (0.5-1.5); WHITE BLOOD COUNT 5.3 K/mm3 (4.0-10.0)
[2021-11-23 07:44] LABS: CALCIUM 8.2 mg/dL (8.5-10.1)
[2021-11-23 07:45] LABS: BLOOD UREA NITROGEN 31.7 mg/dL (7-18)
[2021-11-23 07:47] LABS: CREATININE 1.5 mg/dL (0.55-1.3)
[2021-11-23] MEDS ORDERED: SODIUM CHLORIDE 1,000 ML IV SCH (08:00)
[2021-11-23 08:28] LABS: INR 1.5 (0.83-1.09); PROTHROMBIN TIME (PATIENT) 17.3 SEC (9.7-13.0)
[2021-11-23] MEDS ORDERED: DEXMEDETOMIDINE HCL 200 MCG/2 ML IVPB ONE (09:32)
[2021-11-23] MEDS: PANTOPRAZOLE 40 MG TABLET PO SCH (10:22)
[2021-11-23] MEDS: POLYETHYLENE GLYCOL (HEALTHYLAX) 3350 17 GM PACKET PO SCH (10:22)
[2021-11-23] MEDS: METOPROLOL TARTRATE 25 MG TABLET (FP) PO SCH (10:22)
[2021-11-23 15:25] VITALS: BP 79/51; PULSE 82; TEMP 97.6
== END 2021-11-23 19:08 | disposition home or self-care (01) | DRG 813 ==
LOC: JER 10:03 → JERBED 14:49 → J4W 11-20 00:56
PROVIDERS: ADMIT Internal Medicine; ATTEND Internal Medicine
PROC: 30233N1 Transfusion of Nonautologous Red Blood Cells into Peripheral Vein, Percutaneous Approach (ICD-10-PCS; 2021-11-21)
PROC: 0DJ08ZZ Inspection of Upper Intestinal Tract, Via Natural or Artificial Opening Endoscopic (ICD-10-PCS; principal; 2021-11-23 10:00)
DX: D68.32 Hemorrhagic disorder due to extrinsic circulating anticoagulants (principal); D62 Acute posthemorrhagic anemia; N17.9 Acute kidney failure, unspecified; I13.0 Hypertensive heart and chronic kidney disease with heart failure and stage 1 through stage 4 chronic kidney disease, or unspecified chronic kidney disease; I50.32 Chronic diastolic (congestive) heart failure; I48.19 Other persistent atrial fibrillation; Z79.01 Long term (current) use of anticoagulants; E78.5 Hyperlipidemia, unspecified; K74.60 Unspecified cirrhosis of liver; N18.30 Chronic kidney disease, stage 3 unspecified; E03.9 Hypothyroidism, unspecified; T45.515A Adverse effect of anticoagulants, initial encounter
CPT/HCPCS: 36415; 36430; 36511; 80048; 80053; 80076; 82272; 82607; 82746; 82962; 83540; 83550; 83735; 84100; 84443; 85025; 85027; 85045; 85610; 85730; 86850; 86900; 86901; 86922; 93005; 93010; 99285-25; C9803; J1756; P9038; P9058; U0003; U0005

== ENCOUNTER 2022-01-23 10:58 | Inpatient (IN) | payer OTHER, BC ==
[2022-01-23 13:16] LABS: BASO % 0.9 % (0-2.0); EOS % 4.4 % (0-4.5); HEMATOCRIT 38.2 % (35.4-49); HEMOGLOBIN 12.7 GM/dL (11.7-16.9); LYMPH % 8.4 % (8-40); MCH 31.1 pg (25.7-33.7); MCHC 33.4 g/dl (32.0-35.9); MEAN CELL VOLUME 93.1 fl (80-96); MEAN PLT VOLUME 7.7 fl (7.5-11.1); MONO % 12.3 % (3.8-10.2); PLATELET COUNT 286 10^3/uL (134-434); RDW 15.1 % (11.9-15.9); WHITE BLOOD COUNT 5.7 K/mm3 (4.0-10.0)
[2022-01-23 13:26] LABS: INR 1.05 (0.83-1.09); PROTHROMBIN TIME (PATIENT) 12.1 SEC (9.7-13.0)
[2022-01-23 13:28] LABS: ACTIVATED PTT 38.3 SECONDS (25.2-36.5)
[2022-01-23 13:36] LABS: CALCIUM 9.6 mg/dL (8.5-10.1)
[2022-01-23 13:37] LABS: ALBUMIN 3.7 g/dl (3.4-5.0); BLOOD UREA NITROGEN 44.3 mg/dL (7-18); MAGNESIUM 2.4 mg/dL (1.8-2.4)
[2022-01-23 13:40] LABS: CREATININE 2.5 mg/dL (0.55-1.3)
[2022-01-23 13:41] LABS: TOT PROT 7.4 g/dl (6.4-8.2)
[2022-01-23 13:42] LABS: BILIRUBIN,TOTAL 1.2 mg/dL (0.2-1)
[2022-01-23 13:45] LABS: N-TERMINAL BNP 10999.2 pg/ml (5-450)
[2022-01-23] MEDS ORDERED: FUROSEMIDE 40 MG/4 ML INJECTABLE VIAL IVPUSH ONE ×2 (15:28→20:00)
[2022-01-23] MEDS ORDERED: SPIRONOLACTONE 25 MG TABLET ONE (16:05)
[2022-01-23] MEDS ORDERED: FUROSEMIDE 40 MG/4 ML INJECTABLE VIAL ONE (16:06)
[2022-01-23] MEDS: SPIRONOLACTONE 25 MG TABLET PO SCH (16:20)
[2022-01-23 17:41] LABS: URINE APPEARANCE CLEAR; URINE BILIRUBIN NEGATIVE (NEGATIVE); URINE COLOR YELLOW; URINE GLUCOSE (UA) NEGATIVE (NEGATIVE); URINE KETONE NEGATIVE (NEGATIVE); URINE LEUK ESTERASE NEGATIVE (NEGATIVE); URINE NITRITE NEGATIVE (NEGATIVE); URINE PROTEIN NEGATIVE (NEGATIVE); URINE UROBILINOGEN 0.2 mg/dL (0.2-1.0)
[2022-01-23] MEDS: METOPROLOL TARTRATE 50 MG TABLET (FP) PO SCH (21:39)
[2022-01-24 00:36] VITALS: BMI 26.6
[2022-01-24] MEDS: LEVOTHYROXINE NA 75 MCG TABLET (FP) PO SCH (06:17)
[2022-01-24] MEDS: FUROSEMIDE 40 MG/4 ML INJECTABLE VIAL IVPUSH SCH ×2 (06:17→13:45)
[2022-01-24 08:44] LABS: HEMATOCRIT 35.2 % (35.4-49); MCH 31.5 pg (25.7-33.7); MEAN CELL VOLUME 92.6 fl (80-96); MEAN PLT VOLUME 7.5 fl (7.5-11.1); PLATELET COUNT 249 10^3/uL (134-434); RDW 15.4 % (11.9-15.9); WHITE BLOOD COUNT 5.6 K/mm3 (4.0-10.0)
[2022-01-24 09:03] LABS: ALBUMIN 3.4 g/dl (3.4-5.0); BLOOD UREA NITROGEN 46.2 mg/dL (7-18); CALCIUM 9.8 mg/dL (8.5-10.1); MAGNESIUM 2.4 mg/dL (1.8-2.4)
[2022-01-24 09:06] LABS: CREATININE 2.3 mg/dL (0.55-1.3)
[2022-01-24 09:08] LABS: BILIRUBIN,TOTAL 1.5 mg/dL (0.2-1); TOT PROT 6.9 g/dl (6.4-8.2)
[2022-01-24] MEDS: METOPROLOL TARTRATE 50 MG TABLET (FP) PO SCH ×2 (10:46→21:22)
[2022-01-24] MEDS: SPIRONOLACTONE 25 MG TABLET PO SCH (10:46)
[2022-01-25] MEDS: LEVOTHYROXINE NA 75 MCG TABLET (FP) PO SCH (06:07)
[2022-01-25] MEDS: FUROSEMIDE 40 MG/4 ML INJECTABLE VIAL IVPUSH SCH ×2 (06:08→16:59)
[2022-01-25 11:08] LABS: HEMATOCRIT 34.2 % (35.4-49); HEMOGLOBIN 11.8 GM/dL (11.7-16.9); MCH 31.7 pg (25.7-33.7); MCHC 34.5 g/dl (32.0-35.9); MEAN CELL VOLUME 91.9 fl (80-96); MEAN PLT VOLUME 7.6 fl (7.5-11.1); PLATELET COUNT 246 10^3/uL (134-434); RBC 3.72 M/mm3 (4.00-5.60); RDW 15.2 % (11.9-15.9); WHITE BLOOD COUNT 5.5 K/mm3 (4.0-10.0)
[2022-01-25 11:35] LABS: BLOOD UREA NITROGEN 46.4 mg/dL (7-18); CALCIUM 9.5 mg/dL (8.5-10.1)
[2022-01-25 11:39] LABS: CREATININE 2.3 mg/dL (0.55-1.3)
[2022-01-25] MEDS: SPIRONOLACTONE 25 MG TABLET PO SCH (11:43)
[2022-01-25] MEDS: METOPROLOL TARTRATE 50 MG TABLET (FP) PO SCH ×2 (11:43→21:48)
[2022-01-25] MEDS: SUCRALFATE 1 GM TABLET (FP) PO SCH ×2 (11:44→18:44)
[2022-01-25 17:10] LABS: BF WBC & OTHER NUCLEATED CELLS 242 /mm3
[2022-01-25 17:57] LABS: BODY FLUID MACROPHAGES 40 %; BODY FLUID MESOTHELIAL 5 %; BODY FLUID MONOCYTE 8 %
[2022-01-25] MEDS: ALBUMIN HUMAN 25% 12.5 GM/50 ML VIAL IV SCH ×4 (18:36→20:51)
[2022-01-26] MEDS: LEVOTHYROXINE NA 75 MCG TABLET (FP) PO SCH (06:32)
[2022-01-26] MEDS: FUROSEMIDE 40 MG/4 ML INJECTABLE VIAL IVPUSH SCH ×2 (06:32→13:48)
[2022-01-26] MEDS ORDERED: FUROSEMIDE 40 MG/4 ML INJECTABLE VIAL IVPUSH SCH (08:21)
[2022-01-26] MEDS: SUCRALFATE 1 GM TABLET (FP) PO SCH ×2 (09:01→16:13)
[2022-01-26] MEDS: METOPROLOL TARTRATE 50 MG TABLET (FP) PO SCH ×2 (09:01→21:54)
[2022-01-26] MEDS: SPIRONOLACTONE 25 MG TABLET PO SCH (09:01)
[2022-01-26] MEDS: APIXABAN 2.5 MG TABLET PO SCH ×4 (12:27→21:54)
[2022-01-27] MEDS: FUROSEMIDE 40 MG/4 ML INJECTABLE VIAL IVPUSH SCH ×2 (05:56→13:51)
[2022-01-27] MEDS: LEVOTHYROXINE NA 75 MCG TABLET (FP) PO SCH (06:00)
[2022-01-27 08:46] VITALS: BP 101/67; PULSE 99; TEMP 98.5
[2022-01-27] MEDS: SPIRONOLACTONE 25 MG TABLET PO SCH (09:29)
[2022-01-27] MEDS: SUCRALFATE 1 GM TABLET (FP) PO SCH (09:29)
[2022-01-27] MEDS: APIXABAN 2.5 MG TABLET PO SCH (09:29)
[2022-01-27] MEDS: METOPROLOL TARTRATE 50 MG TABLET (FP) PO SCH (09:30)
[2022-01-31 13:07] LABS: BODY FLUID ALBUMIN 2.5 g/dL (Not Estab.)
== END 2022-01-27 13:59 | disposition home or self-care (01) | DRG 291 ==
LOC: JER 10:58 → JERBED 14:15 → J5S 20:29
PROVIDERS: ADMIT Internal Medicine; ATTEND Internal Medicine
PROC: 0W9G3ZZ Drainage of Peritoneal Cavity, Percutaneous Approach (ICD-10-PCS; principal; 2022-01-25)
PROC: BW40ZZZ Ultrasonography of Abdomen (ICD-10-PCS; 2022-01-25)
DX: I13.0 Hypertensive heart and chronic kidney disease with heart failure and stage 1 through stage 4 chronic kidney disease, or unspecified chronic kidney disease (principal); I50.33 Acute on chronic diastolic (congestive) heart failure; I48.19 Other persistent atrial fibrillation; N17.9 Acute kidney failure, unspecified; E87.1 Hypo-osmolality and hyponatremia; R18.8 Other ascites; E03.9 Hypothyroidism, unspecified; K74.60 Unspecified cirrhosis of liver; N18.9 Chronic kidney disease, unspecified; E78.5 Hyperlipidemia, unspecified; E78.00 Pure hypercholesterolemia, unspecified; E87.70 Fluid overload, unspecified
CPT/HCPCS: 36415; 71045-TC-FY; 76700-TC; 76775-TC; 76856-TC; 76942-TC; 80048; 80053; 81003; 82042; 82150; 82465; 82945; 83615; 83735; 83880; 83986; 84100; 84157; 84478; 84484; 85025; 85027; 85610; 85730; 87070; 87075; 87102; 87116; 87205; 87206; 87210; 88108; 88305-TC; 93005; 93010; 93306-TC; 93970-TC; 97116-GP; 97162-GP; 99285-25; C9803-CS; P9047; U0003; U0005

== ENCOUNTER 2022-01-29 12:34 | Emergency (ER) | payer OTHER, BC ==
[2022-01-29 12:46] VITALS: TEMP 97.8; BMI 25.1
[2022-01-29 15:02] VITALS: BP 110/74; PULSE 95
[2022-01-29] MEDS ORDERED: FLUCONAZOLE 150 MG TABLET PO ONE (16:20)
== END 2022-01-29 15:03 | disposition home or self-care (01) ==
LOC: JER 12:34
DX: R18.8 Other ascites (principal)
CPT/HCPCS: 99283-25

== ENCOUNTER 2022-04-01 12:53 | Inpatient (IN) | payer OTHER, BC ==
[2022-04-01] MEDS ORDERED: FUROSEMIDE 100 MG/10 ML INJECTABLE VIAL IVPB ONE (14:48)
[2022-04-01] MEDS ORDERED: CEFTRIAXONE 1 GM in DEXTROSE 5%-WATER - 100 ML IVPB ONE (14:48)
[2022-04-01 15:16] LABS: VENOUS BASE EXCESS -1.1 mmol/L (-2-2); VENOUS O2 SATURATION 42.6 % (70-80); VENOUS PCO2 50.1 mmHg (38-52); VENOUS PH 7.323 (7.310-7.410)
[2022-04-01 15:19] LABS: HEMATOCRIT 32.7 % (35.4-49); HEMOGLOBIN 10.8 GM/dL (11.7-16.9); LYMPH % 6.4 % (8-40); MCH 30.1 pg (25.7-33.7); MEAN CELL VOLUME 91.2 fl (80-96); MEAN PLT VOLUME 7.8 fl (7.5-11.1); MONO % 11.7 % (3.8-10.2); NEUT % 78.9 % (42.8-82.8); PLATELET COUNT 302 10^3/uL (134-434); RBC 3.59 M/mm3 (4.00-5.60); RDW 15.7 % (11.9-15.9)
[2022-04-01 15:26] LABS: INR 2.23 (0.83-1.09); PROTHROMBIN TIME (PATIENT) 25.9 SEC (9.7-13.0)
[2022-04-01 15:29] LABS: ACTIVATED PTT 35.1 SECONDS (25.2-36.5)
[2022-04-01 15:30] LABS: CALCIUM 9.1 mg/dL (8.5-10.1)
[2022-04-01 15:31] LABS: ALBUMIN 3.7 g/dl (3.4-5.0); BLOOD UREA NITROGEN 57.4 mg/dL (7-18)
[2022-04-01 15:34] LABS: CREATININE 2.4 mg/dL (0.55-1.3)
[2022-04-01 15:36] LABS: BILIRUBIN,TOTAL 1.1 mg/dL (0.2-1); TOT PROT 7.3 g/dl (6.4-8.2)
[2022-04-01] MEDS ORDERED: CEFTRIAXONE 1 GM/50 ML BAG ONE (15:37)
[2022-04-01] MEDS ORDERED: FUROSEMIDE 40 MG/4 ML INJECTABLE VIAL ONE (15:37)
[2022-04-01 15:39] LABS: N-TERMINAL BNP 8078.1 pg/ml (5-450)
[2022-04-01 17:20] LABS: BF WBC & OTHER NUCLEATED CELLS 310 /mm3
[2022-04-01 18:31] LABS: BODY FLUID MACROPHAGES 46 %; BODY FLUID MESOTHELIAL 29 %
[2022-04-01] MEDS ORDERED: APIXABAN 2.5 MG TABLET ONE (23:34)
[2022-04-01] MEDS ORDERED: METOPROLOL TARTRATE 50 MG TABLET (FP) ONE (23:34)
[2022-04-01] MEDS ORDERED: SUCRALFATE 1 GM TABLET (FP) ONE (23:34)
[2022-04-01] MEDS: APIXABAN 2.5 MG TABLET PO SCH (23:43)
[2022-04-01] MEDS: SUCRALFATE 1 GM TABLET (FP) PO SCH (23:43)
[2022-04-01] MEDS: METOPROLOL TARTRATE 50 MG TABLET (FP) PO SCH (23:43)
[2022-04-02] MEDS ORDERED: FUROSEMIDE 40 MG/4 ML INJECTABLE VIAL IVPUSH SCH (06:00)
[2022-04-02] MEDS: FUROSEMIDE 40 MG/4 ML INJECTABLE VIAL IVPUSH SCH ×2 (06:37→13:34)
[2022-04-02 07:34] LABS: BASO % 0.9 % (0-2.0); EOS % 2.6 % (0-4.5); HEMOGLOBIN 10.6 GM/dL (11.7-16.9); LYMPH % 12.1 % (8-40); MCH 30.1 pg (25.7-33.7); MCHC 33.2 g/dl (32.0-35.9); MEAN CELL VOLUME 90.6 fl (80-96); MEAN PLT VOLUME 7.9 fl (7.5-11.1); MONO % 12.8 % (3.8-10.2); NEUT % 71.6 % (42.8-82.8); PLATELET COUNT 275 10^3/uL (134-434); RBC 3.53 M/mm3 (4.00-5.60); RDW 15.8 % (11.9-15.9)
[2022-04-02 07:59] LABS: CALCIUM 9.3 mg/dL (8.5-10.1)
[2022-04-02 08:01] LABS: ALBUMIN 3.6 g/dl (3.4-5.0); BLOOD UREA NITROGEN 57.9 mg/dL (7-18); MAGNESIUM 2.4 mg/dL (1.8-2.4)
[2022-04-02 08:03] LABS: CREATININE 2.3 mg/dL (0.55-1.3)
[2022-04-02 08:05] LABS: BILIRUBIN,TOTAL 1.1 mg/dL (0.2-1)
[2022-04-02] MEDS ORDERED: LEVOTHYROXINE NA 75 MCG TABLET (FP) ONE (08:29)
[2022-04-02] MEDS: LEVOTHYROXINE NA 25 MCG TABLET (FP) PO SCH (08:40)
[2022-04-02] MEDS ORDERED: METOPROLOL TARTRATE 50 MG TABLET (FP) ONE ×2 (09:04→20:49)
[2022-04-02] MEDS ORDERED: PANTOPRAZOLE 40 MG TABLET PO ONE (09:04)
[2022-04-02] MEDS ORDERED: SUCRALFATE 1 GM TABLET (FP) ONE ×2 (09:04→20:49)
[2022-04-02] MEDS ORDERED: APIXABAN 2.5 MG TABLET ONE ×2 (09:04→20:49)
[2022-04-02] MEDS ORDERED: SPIRONOLACTONE 25 MG TABLET ONE (09:05)
[2022-04-02] MEDS: SUCRALFATE 1 GM TABLET (FP) PO SCH ×2 (09:10→22:35)
[2022-04-02] MEDS: SPIRONOLACTONE 25 MG TABLET PO SCH (09:10)
[2022-04-02] MEDS: METOPROLOL TARTRATE 50 MG TABLET (FP) PO SCH ×2 (09:10→22:35)
[2022-04-02] MEDS: APIXABAN 2.5 MG TABLET PO SCH ×2 (09:10→22:35)
[2022-04-02] MEDS: PANTOPRAZOLE 20 MG TABLET PO SCH (09:10)
[2022-04-02] MEDS ORDERED: FUROSEMIDE 40 MG/4 ML INJECTABLE VIAL ONE (13:21)
[2022-04-03] MEDS: FUROSEMIDE 40 MG/4 ML INJECTABLE VIAL IVPUSH SCH (06:19)
[2022-04-03] MEDS ORDERED: LEVOTHYROXINE NA 75 MCG TABLET (FP) ONE (07:37)
[2022-04-03] MEDS: LEVOTHYROXINE NA 25 MCG TABLET (FP) PO SCH (07:46)
[2022-04-03 07:47] LABS: BASO % 1.3 % (0-2.0); EOS % 1.9 % (0-4.5); HEMATOCRIT 34.4 % (35.4-49); HEMOGLOBIN 11.1 GM/dL (11.7-16.9); LYMPH % 8.7 % (8-40); MCH 29.9 pg (25.7-33.7); MCHC 32.4 g/dl (32.0-35.9); MEAN CELL VOLUME 92.3 fl (80-96); MONO % 14.4 % (3.8-10.2); NEUT % 73.7 % (42.8-82.8); PLATELET COUNT 324 10^3/uL (134-434); RBC 3.72 M/mm3 (4.00-5.60); RDW 15.8 % (11.9-15.9); WHITE BLOOD COUNT 7.7 K/mm3 (4.0-10.0)
[2022-04-03 08:04] LABS: ALBUMIN 3.8 g/dl (3.4-5.0); BLOOD UREA NITROGEN 62.1 mg/dL (7-18); CALCIUM 9.8 mg/dL (8.5-10.1); MAGNESIUM 2.4 mg/dL (1.8-2.4)
[2022-04-03 08:07] LABS: CREATININE 2.6 mg/dL (0.55-1.3)
[2022-04-03 08:09] LABS: BILIRUBIN,TOTAL 1.5 mg/dL (0.2-1); TOT PROT 7.5 g/dl (6.4-8.2)
[2022-04-03] MEDS ORDERED: SODIUM ZIRCONIUM CYCLOSILICATE (LOKELMA) 5 GM PACKET PO ONE (08:31)
[2022-04-03] MEDS ORDERED: SODIUM ZIRCONIUM CYCLOSILICATE (LOKELMA) 5 GM PACKET ONE (09:13)
[2022-04-03] MEDS ORDERED: PANTOPRAZOLE 40 MG TABLET PO ONE (09:14)
[2022-04-03] MEDS ORDERED: SPIRONOLACTONE 25 MG TABLET ONE (09:14)
[2022-04-03] MEDS ORDERED: METOPROLOL TARTRATE 50 MG TABLET (FP) ONE ×2 (09:14→22:21)
[2022-04-03] MEDS ORDERED: SUCRALFATE 1 GM TABLET (FP) ONE ×2 (09:14→22:21)
[2022-04-03] MEDS: SPIRONOLACTONE 25 MG TABLET PO SCH (09:23)
[2022-04-03] MEDS: SUCRALFATE 1 GM TABLET (FP) PO SCH ×2 (09:23→22:27)
[2022-04-03] MEDS: PANTOPRAZOLE 20 MG TABLET PO SCH (09:24)
[2022-04-03] MEDS: METOPROLOL TARTRATE 50 MG TABLET (FP) PO SCH ×2 (09:24→22:28)
[2022-04-03] MEDS: APIXABAN 2.5 MG TABLET PO SCH ×2 (09:24→22:27)
[2022-04-03] MEDS ORDERED: ALBUMIN HUMAN 5% 250 ML IV SOLUTION IV ONE (11:51)
[2022-04-03 16:07] LABS: BODY FLUID ALBUMIN 2.5 g/dL (Not Estab.)
[2022-04-03] MEDS ORDERED: MELATONIN 5 MG TABLETS PO ONE (22:52)
[2022-04-04 01:56] VITALS: BMI 25.7
[2022-04-04 07:07] LABS: HEMATOCRIT 30.7 % (35.4-49); HEMOGLOBIN 10.4 GM/dL (11.7-16.9); MCH 30.3 pg (25.7-33.7); MCHC 33.9 g/dl (32.0-35.9); MEAN CELL VOLUME 89.3 fl (80-96); MEAN PLT VOLUME 8.2 fl (7.5-11.1); PLATELET COUNT 277 10^3/uL (134-434); RBC 3.43 M/mm3 (4.00-5.60); RDW 15.2 % (11.9-15.9); WHITE BLOOD COUNT 6.3 K/mm3 (4.0-10.0)
[2022-04-04 07:27] LABS: BLOOD UREA NITROGEN 70.7 mg/dL (7-18); CALCIUM 9.2 mg/dL (8.5-10.1); MAGNESIUM 2.3 mg/dL (1.8-2.4)
[2022-04-04 07:31] LABS: CREATININE 2.8 mg/dL (0.55-1.3); PHOSPHOROUS 4.3 mg/dL (2.5-4.9)
[2022-04-04] MEDS: SUCRALFATE 1 GM TABLET (FP) PO SCH ×2 (10:34→21:15)
[2022-04-04] MEDS: PANTOPRAZOLE 20 MG TABLET PO SCH (10:34)
[2022-04-04] MEDS: METOPROLOL TARTRATE 50 MG TABLET (FP) PO SCH ×2 (10:34→21:16)
[2022-04-04] MEDS ORDERED: FUROSEMIDE 40 MG/4 ML INJECTABLE VIAL IVPUSH ONE (15:00)
[2022-04-05] MEDS: LEVOTHYROXINE NA 75 MCG TABLET (FP) PO SCH (07:27)
[2022-04-05 07:32] LABS: HEMATOCRIT 30.8 % (35.4-49); HEMOGLOBIN 10.4 GM/dL (11.7-16.9); MCH 30.5 pg (25.7-33.7); MCHC 33.7 g/dl (32.0-35.9); MEAN CELL VOLUME 90.3 fl (80-96); PLATELET COUNT 280 10^3/uL (134-434); RBC 3.41 M/mm3 (4.00-5.60); RDW 15.6 % (11.9-15.9); WHITE BLOOD COUNT 6.7 K/mm3 (4.0-10.0)
[2022-04-05 07:35] LABS: INR 1.58 (0.83-1.09); PROTHROMBIN TIME (PATIENT) 18.3 SEC (9.7-13.0)
[2022-04-05 07:50] LABS: CALCIUM 9.4 mg/dL (8.5-10.1)
[2022-04-05 07:51] LABS: BLOOD UREA NITROGEN 71.4 mg/dL (7-18); MAGNESIUM 2.5 mg/dL (1.8-2.4)
[2022-04-05 07:54] LABS: PHOSPHOROUS 4.1 mg/dL (2.5-4.9)
[2022-04-05] MEDS ORDERED: FUROSEMIDE 40 MG/4 ML INJECTABLE VIAL IVPUSH ONE (10:00)
[2022-04-05] MEDS: METOPROLOL TARTRATE 50 MG TABLET (FP) PO SCH ×2 (10:36→22:00)
[2022-04-05] MEDS: SUCRALFATE 1 GM TABLET (FP) PO SCH ×2 (10:36→22:00)
[2022-04-05] MEDS: PANTOPRAZOLE 20 MG TABLET PO SCH (10:36)
[2022-04-05] MEDS ORDERED: ACETAMINOPHEN 325 MG TABLET (FP) PO ONE (11:58)
[2022-04-06] MEDS: LEVOTHYROXINE NA 75 MCG TABLET (FP) PO SCH (06:41)
[2022-04-06 07:13] LABS: INR 1.54 (0.83-1.09); PROTHROMBIN TIME (PATIENT) 17.8 SEC (9.7-13.0)
[2022-04-06 07:14] LABS: ACTIVATED PTT 32.3 SECONDS (25.2-36.5)
[2022-04-06 07:24] LABS: HEMATOCRIT 30.1 % (35.4-49); HEMOGLOBIN 10.2 GM/dL (11.7-16.9); MCH 30.7 pg (25.7-33.7); MCHC 33.9 g/dl (32.0-35.9); MEAN CELL VOLUME 90.5 fl (80-96); PLATELET COUNT 267 10^3/uL (134-434); RBC 3.32 M/mm3 (4.00-5.60); RDW 15.2 % (11.9-15.9); WHITE BLOOD COUNT 5.9 K/mm3 (4.0-10.0)
[2022-04-06 07:31] LABS: BLOOD UREA NITROGEN 71.5 mg/dL (7-18)
[2022-04-06 07:32] LABS: MAGNESIUM 2.5 mg/dL (1.8-2.4)
[2022-04-06 07:34] LABS: CREATININE 2.8 mg/dL (0.55-1.3); PHOSPHOROUS 4.3 mg/dL (2.5-4.9)
[2022-04-06] MEDS: METOPROLOL TARTRATE 50 MG TABLET (FP) PO SCH ×2 (09:43→22:52)
[2022-04-06] MEDS: SUCRALFATE 1 GM TABLET (FP) PO SCH ×2 (09:43→22:53)
[2022-04-06] MEDS: PANTOPRAZOLE 20 MG TABLET PO SCH (09:43)
[2022-04-06] MEDS ORDERED: ALBUMIN HUMAN 25% 12.5 GM/50 ML VIAL IV ONE ×2 (14:00→20:00)
[2022-04-06 14:34] LABS: BF WBC & OTHER NUCLEATED CELLS 279 /mm3
[2022-04-06 14:35] LABS: BODY FLUID BASOPHIL 0 %; BODY FLUID HISTIOCYTES 0 %; BODY FLUID MACROPHAGES 44 %; BODY FLUID MESOTHELIAL 9 %; BODY FLUID MONOCYTE 0 %; BODY FLUID PLASMA CELL 0 %; BODYL FLD EOSINOPHIL 0 %
[2022-04-06] MEDS: APIXABAN 2.5 MG TABLET PO SCH (22:53)
[2022-04-07] MEDS: LEVOTHYROXINE NA 75 MCG TABLET (FP) PO SCH ×2 (06:01→08:21)
[2022-04-07 07:49] LABS: HEMATOCRIT 31.9 % (35.4-49); HEMOGLOBIN 10.7 GM/dL (11.7-16.9); MCH 30.2 pg (25.7-33.7); MCHC 33.7 g/dl (32.0-35.9); MEAN CELL VOLUME 89.5 fl (80-96); MEAN PLT VOLUME 7.8 fl (7.5-11.1); PLATELET COUNT 298 10^3/uL (134-434); RBC 3.56 M/mm3 (4.00-5.60); RDW 15.4 % (11.9-15.9); WHITE BLOOD COUNT 6.5 K/mm3 (4.0-10.0)
[2022-04-07 08:10] LABS: CALCIUM 9.1 mg/dL (8.5-10.1)
[2022-04-07 08:11] LABS: BLOOD UREA NITROGEN 67.8 mg/dL (7-18); MAGNESIUM 2.5 mg/dL (1.8-2.4)
[2022-04-07 08:13] LABS: PHOSPHOROUS 3.1 mg/dL (2.5-4.9)
[2022-04-07 08:14] LABS: CREATININE 2.5 mg/dL (0.55-1.3)
[2022-04-07] MEDS: PANTOPRAZOLE 20 MG TABLET PO SCH (10:20)
[2022-04-07] MEDS: METOPROLOL TARTRATE 50 MG TABLET (FP) PO SCH ×2 (10:20→21:22)
[2022-04-07] MEDS: APIXABAN 2.5 MG TABLET PO SCH ×2 (10:20→21:23)
[2022-04-07] MEDS: SUCRALFATE 1 GM TABLET (FP) PO SCH ×2 (10:20→21:23)
[2022-04-07] MEDS: FUROSEMIDE 40 MG/4 ML INJECTABLE VIAL IVPUSH SCH (15:49)
[2022-04-07] MEDS ORDERED: FUROSEMIDE 40 MG/4 ML INJECTABLE VIAL IVPUSH ONE (16:00)
[2022-04-08] MEDS: FUROSEMIDE 40 MG/4 ML INJECTABLE VIAL IVPUSH SCH ×2 (05:55→16:06)
[2022-04-08] MEDS: LEVOTHYROXINE NA 75 MCG TABLET (FP) PO SCH (06:26)
[2022-04-08 07:48] LABS: HEMATOCRIT 31.2 % (35.4-49); HEMOGLOBIN 10.5 GM/dL (11.7-16.9); MCH 30.3 pg (25.7-33.7); MCHC 33.8 g/dl (32.0-35.9); MEAN CELL VOLUME 89.6 fl (80-96); MEAN PLT VOLUME 7.6 fl (7.5-11.1); PLATELET COUNT 292 10^3/uL (134-434); RBC 3.48 M/mm3 (4.00-5.60); RDW 15.7 % (11.9-15.9); WHITE BLOOD COUNT 6.5 K/mm3 (4.0-10.0)
[2022-04-08 08:14] LABS: BLOOD UREA NITROGEN 55.1 mg/dL (7-18); CALCIUM 8.8 mg/dL (8.5-10.1)
[2022-04-08 08:15] LABS: MAGNESIUM 2.3 mg/dL (1.8-2.4)
[2022-04-08 08:17] LABS: CREATININE 2.1 mg/dL (0.55-1.3); PHOSPHOROUS 2.7 mg/dL (2.5-4.9)
[2022-04-08] MEDS: SUCRALFATE 1 GM TABLET (FP) PO SCH ×2 (10:04→21:39)
[2022-04-08] MEDS: METOPROLOL TARTRATE 50 MG TABLET (FP) PO SCH ×3 (10:04→21:39)
[2022-04-08] MEDS: APIXABAN 2.5 MG TABLET PO SCH ×2 (10:05→21:39)
[2022-04-08] MEDS: PANTOPRAZOLE 20 MG TABLET PO SCH (10:05)
[2022-04-08 19:02] LABS: URINE APPEARANCE CLEAR; URINE BILIRUBIN NEGATIVE (NEGATIVE); URINE COLOR YELLOW; URINE GLUCOSE (UA) NEGATIVE (NEGATIVE); URINE KETONE NEGATIVE (NEGATIVE); URINE LEUK ESTERASE NEGATIVE (NEGATIVE); URINE NITRITE NEGATIVE (NEGATIVE); URINE PROTEIN TRACE (NEGATIVE); URINE UROBILINOGEN 0.2 mg/dL (0.2-1.0)
[2022-04-09] MEDS: LEVOTHYROXINE NA 75 MCG TABLET (FP) PO SCH (06:20)
[2022-04-09] MEDS: FUROSEMIDE 40 MG/4 ML INJECTABLE VIAL IVPUSH SCH ×3 (06:20→14:10)
[2022-04-09 08:16] LABS: HEMATOCRIT 32.3 % (35.4-49); HEMOGLOBIN 10.8 GM/dL (11.7-16.9); MCH 30.2 pg (25.7-33.7); MCHC 33.4 g/dl (32.0-35.9); MEAN CELL VOLUME 90.5 fl (80-96); MEAN PLT VOLUME 7.5 fl (7.5-11.1); PLATELET COUNT 293 10^3/uL (134-434); RBC 3.56 M/mm3 (4.00-5.60); RDW 15.9 % (11.9-15.9); WHITE BLOOD COUNT 6.9 K/mm3 (4.0-10.0)
[2022-04-09 08:27] LABS: BLOOD UREA NITROGEN 47.2 mg/dL (7-18)
[2022-04-09 08:28] LABS: CALCIUM 9.1 mg/dL (8.5-10.1)
[2022-04-09 08:29] LABS: MAGNESIUM 2.2 mg/dL (1.8-2.4)
[2022-04-09 08:30] LABS: PHOSPHOROUS 2.4 mg/dL (2.5-4.9)
[2022-04-09 08:31] LABS: CREATININE 1.8 mg/dL (0.55-1.3)
[2022-04-09] MEDS: METOPROLOL TARTRATE 50 MG TABLET (FP) PO SCH ×2 (10:46→22:18)
[2022-04-09] MEDS: APIXABAN 2.5 MG TABLET PO SCH ×2 (10:47→22:12)
[2022-04-09] MEDS: PANTOPRAZOLE 20 MG TABLET PO SCH (10:47)
[2022-04-09] MEDS: SUCRALFATE 1 GM TABLET (FP) PO SCH ×2 (10:48→22:12)
[2022-04-10] MEDS ORDERED: METOPROLOL TARTRATE 50 MG TABLET (FP) PO SCH (04:33)
[2022-04-10] MEDS: LEVOTHYROXINE NA 75 MCG TABLET (FP) PO SCH (06:40)
[2022-04-10] MEDS: FUROSEMIDE 40 MG/4 ML INJECTABLE VIAL IVPUSH SCH (06:40)
[2022-04-10 07:54] LABS: HEMATOCRIT 33.4 % (35.4-49); HEMOGLOBIN 11.1 GM/dL (11.7-16.9); MCH 30.1 pg (25.7-33.7); MCHC 33.2 g/dl (32.0-35.9); MEAN CELL VOLUME 90.5 fl (80-96); MEAN PLT VOLUME 7.7 fl (7.5-11.1); PLATELET COUNT 283 10^3/uL (134-434); RBC 3.69 M/mm3 (4.00-5.60); RDW 15.7 % (11.9-15.9); WHITE BLOOD COUNT 6.5 K/mm3 (4.0-10.0)
[2022-04-10 08:28] LABS: BLOOD UREA NITROGEN 41.1 mg/dL (7-18); CALCIUM 8.8 mg/dL (8.5-10.1)
[2022-04-10 08:29] LABS: MAGNESIUM 2.1 mg/dL (1.8-2.4)
[2022-04-10 08:31] LABS: CREATININE 1.6 mg/dL (0.55-1.3); PHOSPHOROUS 2.3 mg/dL (2.5-4.9)
[2022-04-10 09:28] VITALS: TEMP 98.2
[2022-04-10] MEDS: PANTOPRAZOLE 20 MG TABLET PO SCH (10:26)
[2022-04-10] MEDS: SUCRALFATE 1 GM TABLET (FP) PO SCH (10:26)
[2022-04-10] MEDS: APIXABAN 2.5 MG TABLET PO SCH (10:26)
[2022-04-10] MEDS ORDERED: SODIUM PHOSPHATE - 30 MM in DEXTROSE 5%-WATER - 500 ML IVPB ONE (12:15)
[2022-04-10 14:15] VITALS: BP 115/57; PULSE 82
[2022-04-10] MEDS ORDERED: SPIRONOLACTONE 25 MG TABLET PO SCH (22:00)
[2022-04-11] MEDS ORDERED: FUROSEMIDE 40 MG TABLET (FP) PO SCH (06:00)
[2022-04-12 15:08] LABS: BODY FLUID ALBUMIN 2.7 g/dL (Not Estab.)
== END 2022-04-10 18:47 | disposition home or self-care (01) | DRG 291 ==
LOC: JER 12:53 → JERBED 17:14 → J4W 04-04 01:06
PROVIDERS: ADMIT Internal Medicine; ATTEND Internal Medicine
PROC: 0W9G3ZZ Drainage of Peritoneal Cavity, Percutaneous Approach (ICD-10-PCS; principal; 2022-04-06)
DX: I13.0 Hypertensive heart and chronic kidney disease with heart failure and stage 1 through stage 4 chronic kidney disease, or unspecified chronic kidney disease (principal); I50.33 Acute on chronic diastolic (congestive) heart failure; N17.9 Acute kidney failure, unspecified; K76.6 Portal hypertension; I48.19 Other persistent atrial fibrillation; E78.5 Hyperlipidemia, unspecified; I48.0 Paroxysmal atrial fibrillation; K21.9 Gastro-esophageal reflux disease without esophagitis; K57.90 Diverticulosis of intestine, part unspecified, without perforation or abscess without bleeding; N40.0 Benign prostatic hyperplasia without lower urinary tract symptoms; E03.9 Hypothyroidism, unspecified; D64.9 Anemia, unspecified; K44.9 Diaphragmatic hernia without obstruction or gangrene; K70.31 Alcoholic cirrhosis of liver with ascites; I27.81 Cor pulmonale (chronic); I25.119 Atherosclerotic heart disease of native coronary artery with unspecified angina pectoris; I95.9 Hypotension, unspecified; I07.1 Rheumatic tricuspid insufficiency; E87.70 Fluid overload, unspecified; I27.20 Pulmonary hypertension, unspecified; N18.9 Chronic kidney disease, unspecified; Z95.2 Presence of prosthetic heart valve
CPT/HCPCS: 0241U-QW; 36415; 71045-TC-FY; 76942-TC; 80048; 80053; 80061; 81003; 82042; 82150; 82465; 82803; 82945; 83615; 83735; 83880; 83986; 84100; 84157; 84439; 84443; 84478; 84484; 85025; 85027; 85610; 85730; 86850; 86870; 86900; 86901; 86902; 87070; 87075; 87102; 87116; 87205; 87206; 87210; 88104; 88305-TC; 93005; 93010; 93306-TC; 97116-GP; 97162-GP; 99285-25; P9047

== ENCOUNTER 2022-05-08 13:29 | Inpatient (IN) | payer OTHER, BC ==
[2022-05-08 14:17] VITALS: BMI 30.1
[2022-05-08 16:30] LABS: BASO % 0.5 % (0-2.0); HEMATOCRIT 32.5 % (35.4-49); HEMOGLOBIN 10.8 GM/dL (11.7-16.9); LYMPH % 6.1 % (8-40); MCH 30.1 pg (25.7-33.7); MCHC 33.3 g/dl (32.0-35.9); MEAN CELL VOLUME 90.5 fl (80-96); MEAN PLT VOLUME 8.4 fl (7.5-11.1); MONO % 14.5 % (3.8-10.2); NEUT % 75.9 % (42.8-82.8); PLATELET COUNT 271 10^3/uL (134-434); RBC 3.59 M/mm3 (4.00-5.60); RDW 16.1 % (11.9-15.9); WHITE BLOOD COUNT 7.6 K/mm3 (4.0-10.0)
[2022-05-08 16:39] LABS: INR 1.67 (0.83-1.09); PROTHROMBIN TIME (PATIENT) 19.3 SEC (9.7-13.0)
[2022-05-08 16:42] LABS: ACTIVATED PTT 34.1 SECONDS (25.2-36.5)
[2022-05-08 16:50] LABS: BLOOD UREA NITROGEN 59.3 mg/dL (7-18); CALCIUM 9.6 mg/dL (8.5-10.1)
[2022-05-08 16:51] LABS: ALBUMIN 3.5 g/dl (3.4-5.0)
[2022-05-08 16:55] LABS: TOT PROT 7.2 g/dl (6.4-8.2)
[2022-05-08] MEDS: METOPROLOL TARTRATE 50 MG TABLET (FP) PO SCH (22:12)
[2022-05-08] MEDS: SUCRALFATE 1 GM TABLET (FP) PO SCH (22:33)
[2022-05-09] MEDS: ALBUMIN HUMAN 25% 12.5 GM/50 ML VIAL IV SCH ×2 (00:59→01:37)
[2022-05-09] MEDS: LEVOTHYROXINE NA 75 MCG TABLET (FP) PO SCH (06:44)
[2022-05-09 09:19] LABS: HEMATOCRIT 31.3 % (35.4-49); HEMOGLOBIN 10.4 GM/dL (11.7-16.9); MCHC 33.2 g/dl (32.0-35.9); MEAN CELL VOLUME 90.3 fl (80-96); MEAN PLT VOLUME 8.5 fl (7.5-11.1); PLATELET COUNT 250 10^3/uL (134-434); RBC 3.46 M/mm3 (4.00-5.60); RDW 16.2 % (11.9-15.9); WHITE BLOOD COUNT 7.9 K/mm3 (4.0-10.0)
[2022-05-09 09:26] LABS: INR 1.6 (0.83-1.09); PROTHROMBIN TIME (PATIENT) 18.5 SEC (9.7-13.0)
[2022-05-09 09:29] LABS: ACTIVATED PTT 32.2 SECONDS (25.2-36.5)
[2022-05-09] MEDS: PANTOPRAZOLE 40 MG TABLET PO SCH (09:51)
[2022-05-09] MEDS: METOPROLOL TARTRATE 50 MG TABLET (FP) PO SCH (09:51)
[2022-05-09] MEDS: SUCRALFATE 1 GM TABLET (FP) PO SCH ×2 (09:51→21:33)
[2022-05-09 09:53] LABS: ALBUMIN 3.5 g/dl (3.4-5.0); BLOOD UREA NITROGEN 58.2 mg/dL (7-18); CALCIUM 9.8 mg/dL (8.5-10.1); MAGNESIUM 2.4 mg/dL (1.8-2.4)
[2022-05-09 09:56] LABS: BILIRUBIN,TOTAL 4.1 mg/dL (0.2-1); CREATININE 2.8 mg/dL (0.55-1.3); PHOSPHOROUS 3.1 mg/dL (2.5-4.9)
[2022-05-09] MEDS: FUROSEMIDE 40 MG/4 ML INJECTABLE VIAL IVPB SCH (14:08)
[2022-05-09 15:22] LABS: EPI CELLS 2 /uL (0-25.1); HYALINE CASTS 1 /uL (0-3.1); PH,URINE 5.5 (5.0-8.0); URINE APPEARANCE CLEAR; URINE BACTERIA 1 /uL (0-1359); URINE BILIRUBIN NEGATIVE (NEGATIVE); URINE COLOR DK YELLOW; URINE GLUCOSE (UA) NEGATIVE (NEGATIVE); URINE KETONE NEGATIVE (NEGATIVE); URINE LEUK ESTERASE NEGATIVE (NEGATIVE); URINE NITRITE NEGATIVE (NEGATIVE); URINE PROTEIN 1+ (NEGATIVE); URINE RBC 2 /uL (0-23.9); URINE WBC 1 /uL (0-25.8)
[2022-05-09 15:34] LABS: URINE UREA NITROGEN 687 mg/dL (350-1000)
[2022-05-09] MEDS ORDERED: METOPROLOL TARTRATE 50 MG TABLET (FP) PO ONE (22:00)
[2022-05-10] MEDS: FUROSEMIDE 40 MG/4 ML INJECTABLE VIAL IVPB SCH ×2 (05:48→14:07)
[2022-05-10] MEDS: LEVOTHYROXINE NA 75 MCG TABLET (FP) PO SCH (06:02)
[2022-05-10 09:31] LABS: BASO % 0.6 % (0-2.0); EOS % 3.1 % (0-4.5); HEMATOCRIT 30.3 % (35.4-49); HEMOGLOBIN 10.1 GM/dL (11.7-16.9); LYMPH % 5.9 % (8-40); MCH 30.4 pg (25.7-33.7); MCHC 33.5 g/dl (32.0-35.9); MEAN CELL VOLUME 90.5 fl (80-96); MEAN PLT VOLUME 8.2 fl (7.5-11.1); MONO % 12.1 % (3.8-10.2); NEUT % 78.3 % (42.8-82.8); PLATELET COUNT 276 10^3/uL (134-434); RBC 3.34 M/mm3 (4.00-5.60); RDW 15.8 % (11.9-15.9); WHITE BLOOD COUNT 7.4 K/mm3 (4.0-10.0)
[2022-05-10 09:38] LABS: INR 1.41 (0.83-1.09); PROTHROMBIN TIME (PATIENT) 16.3 SEC (9.7-13.0)
[2022-05-10 10:18] LABS: ALBUMIN 3.4 g/dl (3.4-5.0); CALCIUM 9.9 mg/dL (8.5-10.1)
[2022-05-10 10:19] LABS: BLOOD UREA NITROGEN 56.7 mg/dL (7-18)
[2022-05-10 10:22] LABS: CREATININE 2.6 mg/dL (0.55-1.3)
[2022-05-10 10:23] LABS: BILIRUBIN,TOTAL 3.5 mg/dL (0.2-1); TOT PROT 6.9 g/dl (6.4-8.2)
[2022-05-10] MEDS: PANTOPRAZOLE 40 MG TABLET PO SCH (10:29)
[2022-05-10] MEDS: APIXABAN 5 MG TABLET PO SCH ×2 (10:29→22:09)
[2022-05-10] MEDS: SUCRALFATE 1 GM TABLET (FP) PO SCH ×2 (10:29→22:04)
[2022-05-10] MEDS ORDERED: traMADol HCL 50 MG TABLET PO ONE (14:10)
[2022-05-10] MEDS: SPIRONOLACTONE 25 MG TABLET PO SCH (22:03)
[2022-05-10] MEDS ORDERED: ACETAMINOPHEN 1000 MG/100 ML BAG IVPB ONE (22:14)
[2022-05-11] MEDS ORDERED: ACETAMINOPHEN INJECTION 100 ML IVPB ONE (03:44)
[2022-05-11] MEDS: LEVOTHYROXINE NA 75 MCG TABLET (FP) PO SCH (06:33)
[2022-05-11] MEDS: FUROSEMIDE 40 MG/4 ML INJECTABLE VIAL IVPB SCH ×2 (07:07→15:17)
[2022-05-11] MEDS: SPIRONOLACTONE 25 MG TABLET PO SCH ×2 (09:50→21:37)
[2022-05-11] MEDS: PANTOPRAZOLE 40 MG TABLET PO SCH (09:50)
[2022-05-11] MEDS: APIXABAN 5 MG TABLET PO SCH ×2 (09:50→21:37)
[2022-05-11] MEDS: SUCRALFATE 1 GM TABLET (FP) PO SCH ×2 (09:58→21:37)
[2022-05-11 10:17] LABS: BASO % 0.7 % (0-2.0); HEMATOCRIT 30.5 % (35.4-49); HEMOGLOBIN 10.1 GM/dL (11.7-16.9); LYMPH % 10.4 % (8-40); MCHC 33.2 g/dl (32.0-35.9); MEAN CELL VOLUME 90.3 fl (80-96); MONO % 12.9 % (3.8-10.2); PLATELET COUNT 260 10^3/uL (134-434); RBC 3.38 M/mm3 (4.00-5.60); RDW 15.8 % (11.9-15.9); WHITE BLOOD COUNT 5.5 K/mm3 (4.0-10.0)
[2022-05-11 10:24] LABS: INR 1.77 (0.83-1.09); PROTHROMBIN TIME (PATIENT) 20.5 SEC (9.7-13.0)
[2022-05-11 10:50] LABS: CREATININE 2.4 mg/dL (0.55-1.3)
[2022-05-11 10:52] LABS: TOT PROT 6.6 g/dl (6.4-8.2)
[2022-05-11 10:54] LABS: ALBUMIN 3.2 g/dl (3.4-5.0); BLOOD UREA NITROGEN 58.6 mg/dL (7-18); CALCIUM 9.2 mg/dL (8.5-10.1)
[2022-05-11] MEDS ORDERED: ACETAMINOPHEN 325 MG TABLET (FP) PO ONE (14:00)
[2022-05-12] MEDS ORDERED: ACETAMINOPHEN 325 MG TABLET (FP) PO ONE (06:06)
[2022-05-12] MEDS: LEVOTHYROXINE NA 75 MCG TABLET (FP) PO SCH (06:26)
[2022-05-12] MEDS: FUROSEMIDE 40 MG/4 ML INJECTABLE VIAL IVPB SCH ×3 (06:39→14:24)
[2022-05-12] MEDS: SPIRONOLACTONE 25 MG TABLET PO SCH ×2 (09:43→21:35)
[2022-05-12] MEDS: APIXABAN 5 MG TABLET PO SCH ×2 (09:44→21:35)
[2022-05-12] MEDS: PANTOPRAZOLE 40 MG TABLET PO SCH (09:44)
[2022-05-12] MEDS: SUCRALFATE 1 GM TABLET (FP) PO SCH ×2 (09:45→21:35)
[2022-05-12 12:10] LABS: BASO % 0.6 % (0-2.0); EOS % 1.1 % (0-4.5); HEMATOCRIT 28.7 % (35.4-49); HEMOGLOBIN 9.5 GM/dL (11.7-16.9); LYMPH % 6.6 % (8-40); MCHC 33.3 g/dl (32.0-35.9); MEAN CELL VOLUME 90.2 fl (80-96); MEAN PLT VOLUME 8.5 fl (7.5-11.1); MONO % 19.6 % (3.8-10.2); NEUT % 72.1 % (42.8-82.8); PLATELET COUNT 264 10^3/uL (134-434); RBC 3.18 M/mm3 (4.00-5.60); RDW 15.6 % (11.9-15.9); WHITE BLOOD COUNT 7.1 K/mm3 (4.0-10.0)
[2022-05-12 12:23] LABS: INR 2.49 (0.83-1.09); PROTHROMBIN TIME (PATIENT) 28.9 SEC (9.7-13.0)
[2022-05-12 12:47] LABS: ALBUMIN 2.9 g/dl (3.4-5.0); BLOOD UREA NITROGEN 51.4 mg/dL (7-18); CALCIUM 8.8 mg/dL (8.5-10.1)
[2022-05-12 12:48] LABS: CREATININE 2.2 mg/dL (0.55-1.3)
[2022-05-12 12:50] LABS: BILIRUBIN,TOTAL 2.6 mg/dL (0.2-1)
[2022-05-12] MEDS ORDERED: traMADol HCL 50 MG TABLET PO ONE (13:38)
[2022-05-12] MEDS ORDERED: COLCHICINE 0.6 MG CAP PO ONE (14:24)
[2022-05-12] MEDS ORDERED: FUROSEMIDE 40 MG/4 ML INJECTABLE VIAL IVPB SCH ×2 (15:18→16:14)
[2022-05-12] MEDS ORDERED: COLCHICINE 0.6 MG TAB PO ONE (15:30)
[2022-05-13] MEDS ORDERED: COLCHICINE 0.6 MG CAP PO ONE (06:00)
[2022-05-13] MEDS: LEVOTHYROXINE NA 75 MCG TABLET (FP) PO SCH (06:16)
[2022-05-13 09:52] VITALS: BP 101/56; PULSE 89; RESP 20; TEMP 97.9
[2022-05-13] MEDS: APIXABAN 5 MG TABLET PO SCH (09:53)
[2022-05-13] MEDS: PANTOPRAZOLE 40 MG TABLET PO SCH (09:53)
[2022-05-13] MEDS: SPIRONOLACTONE 25 MG TABLET PO SCH (09:53)
[2022-05-13] MEDS: SUCRALFATE 1 GM TABLET (FP) PO SCH (09:55)
[2022-05-13 10:07] LABS: INR 2.38 (0.83-1.09); PROTHROMBIN TIME (PATIENT) 27.6 SEC (9.7-13.0)
[2022-05-13 10:08] LABS: BASO % 0.7 % (0-2.0); EOS % 3.1 % (0-4.5); LYMPH % 9.6 % (8-40); MCH 30.1 pg (25.7-33.7); MCHC 33.3 g/dl (32.0-35.9); MEAN CELL VOLUME 90.3 fl (80-96); MEAN PLT VOLUME 7.8 fl (7.5-11.1); MONO % 15.7 % (3.8-10.2); NEUT % 70.9 % (42.8-82.8); PLATELET COUNT 282 10^3/uL (134-434); RBC 3.32 M/mm3 (4.00-5.60); WHITE BLOOD COUNT 6.8 K/mm3 (4.0-10.0)
[2022-05-13 10:26] LABS: CALCIUM 9.3 mg/dL (8.5-10.1)
[2022-05-13 10:27] LABS: ALBUMIN 2.9 g/dl (3.4-5.0); BLOOD UREA NITROGEN 44.8 mg/dL (7-18)
[2022-05-13 10:32] LABS: BILIRUBIN,TOTAL 2.4 mg/dL (0.2-1); TOT PROT 6.3 g/dl (6.4-8.2)
== END 2022-05-13 14:22 | disposition short-term general hospital (02) | DRG 306 ==
LOC: JER 13:29 → JERBED 17:17 → OBSVTOIN 19:53 → INTOOBSV 19:53 → J6S 20:54
PROVIDERS: ADMIT Internal Medicine; ATTEND Internal Medicine
PROC: 0W9G3ZX Drainage of Peritoneal Cavity, Percutaneous Approach, Diagnostic (ICD-10-PCS; principal; 2022-05-10)
DX: I07.1 Rheumatic tricuspid insufficiency (principal); I50.33 Acute on chronic diastolic (congestive) heart failure; I13.0 Hypertensive heart and chronic kidney disease with heart failure and stage 1 through stage 4 chronic kidney disease, or unspecified chronic kidney disease; R18.8 Other ascites; I48.19 Other persistent atrial fibrillation; N17.9 Acute kidney failure, unspecified; E78.5 Hyperlipidemia, unspecified; K21.9 Gastro-esophageal reflux disease without esophagitis; K57.90 Diverticulosis of intestine, part unspecified, without perforation or abscess without bleeding; E03.9 Hypothyroidism, unspecified; N40.0 Benign prostatic hyperplasia without lower urinary tract symptoms; K74.60 Unspecified cirrhosis of liver; I27.81 Cor pulmonale (chronic); I27.29 Other secondary pulmonary hypertension; M79.662 Pain in left lower leg; E87.70 Fluid overload, unspecified; D64.9 Anemia, unspecified; K55.20 Angiodysplasia of colon without hemorrhage; M10.9 Gout, unspecified; K44.9 Diaphragmatic hernia without obstruction or gangrene; N18.9 Chronic kidney disease, unspecified; Z80.0 Family history of malignant neoplasm of digestive organs; Z86.010 Personal history of colon polyps
CPT/HCPCS: 36415; 71045-TC-FY; 76942-TC; 80053; 81003; 82105; 82248; 82570; 82728; 83540; 83550; 83735; 84100; 84300; 84540; 85025; 85027; 85045; 85610; 85730; 93005; 93010; 93970-TC; 99285-25; C9803-CS; G0378; P9047; U0003; U0005

== ENCOUNTER 2022-09-06 03:21 | Inpatient (IN) | payer OTHER, BC ==
[2022-09-06 06:34] LABS: CHLORIDE 90 mmol/L (98-107); SODIUM 126 mmol/L (136-145)
[2022-09-06 06:36] LABS: CALCIUM 9.8 mg/dL (8.5-10.1); CO2 21 mmol/L (21-32); GLUCOSE,RANDOM 99 mg/dL (74-106); MAGNESIUM 2.1 mg/dL (1.8-2.4)
[2022-09-06 06:39] LABS: PHOSPHOROUS 4.4 mg/dL (2.5-4.9); SGPT/ALT 15 U/L (13-61)
[2022-09-06 06:40] LABS: CREATININE 4.4 mg/dL (0.55-1.3); SGOT/AST 62 U/L (15-37)
[2022-09-06 06:41] LABS: BILIRUBIN,TOTAL 1.5 mg/dL (0.2-1); TOT PROT 7.8 g/dl (6.4-8.2)
[2022-09-06 06:42] LABS: ALK PHOS 102 U/L (45-117)
[2022-09-06 06:44] LABS: N-TERMINAL BNP 14713.4 pg/ml (5-450)
[2022-09-06 07:35] LABS: ANION GAP 14 MMOL/L (8-16); BLOOD UREA NITROGEN 105.8 mg/dL (7-18)
[2022-09-06 07:37] LABS: BASO % 0.3 % (0-2.0); EOS % 5.4 % (0-4.5); HEMATOCRIT 33.4 % (35.4-49); LYMPH % 3.1 % (8-40); MCH 29.4 pg (25.7-33.7); MEAN CELL VOLUME 89.2 fl (80-96); MONO % 12.6 % (3.8-10.2); NEUT % 78.6 % (42.8-82.8); PLATELET COUNT 289 10^3/uL (134-434); RBC 3.74 M/mm3 (4.00-5.60); WHITE BLOOD COUNT 9.4 K/mm3 (4.0-10.0)
[2022-09-06 07:49] LABS: CHLORIDE 94 mmol/L (98-107); SODIUM 128 mmol/L (136-145)
[2022-09-06 07:51] LABS: CALCIUM 9.4 mg/dL (8.5-10.1)
[2022-09-06 07:52] LABS: ALBUMIN 3.7 g/dl (3.4-5.0); CO2 19 mmol/L (21-32); GLUCOSE,RANDOM 99 mg/dL (74-106)
[2022-09-06 07:55] LABS: CREATININE 4.3 mg/dL (0.55-1.3); SGOT/AST 34 U/L (15-37); SGPT/ALT 12 U/L (13-61)
[2022-09-06 07:56] LABS: INR 1.6 (0.83-1.09); PROTHROMBIN TIME (PATIENT) 18.5 SEC (9.7-13.0)
[2022-09-06 07:57] LABS: BILIRUBIN,TOTAL 1.4 mg/dL (0.2-1); TOT PROT 6.6 g/dl (6.4-8.2)
[2022-09-06 07:58] LABS: ALK PHOS 90 U/L (45-117)
[2022-09-06 07:59] LABS: ACTIVATED PTT 32.2 SECONDS (25.2-36.5)
[2022-09-06 08:08] LABS: ANION GAP 14 MMOL/L (8-16); BLOOD UREA NITROGEN 109.1 mg/dL (7-18)
[2022-09-06] MEDS ORDERED: SODIUM ZIRCONIUM CYCLOSILICATE (LOKELMA) 5 GM PACKET PO ONE ×2 (09:16→11:14)
[2022-09-06] MEDS ORDERED: SODIUM ZIRCONIUM CYCLOSILICATE (LOKELMA) 5 GM PACKET ONE (09:28)
[2022-09-06] MEDS ORDERED: INSULIN REGULAR HUMAN 100 UNITS/ML *VIAL IVPUSH ONE (11:11)
[2022-09-06] MEDS ORDERED: DEXTROSE 50%-WATER 25 GM/50 ML DISP.SYRIN IVPUSH ONE (11:11)
[2022-09-06] MEDS ORDERED: LEVOTHYROXINE NA 75 MCG TABLET (FP) ONE (11:58)
[2022-09-06] MEDS ORDERED: APIXABAN 2.5 MG TABLET ONE (11:58)
[2022-09-06] MEDS ORDERED: DEXTROSE 50%-WATER 25 GM/50 ML DISP.SYRIN ONE (11:58)
[2022-09-06] MEDS ORDERED: INSULIN REGULAR HUMAN 100 UNITS/ML *VIAL ONE (11:59)
[2022-09-06] MEDS ORDERED: LEVOTHYROXINE NA 25 MCG TABLET (FP) PO SCH ×2 (12:00)
[2022-09-06] MEDS ORDERED: APIXABAN 5 MG TABLET PO SCH (12:00)
[2022-09-06] MEDS ORDERED: HEPARIN NA (PORCINE) 5,000 UNITS/ML 1ML VIAL SQ SCH (14:00)
[2022-09-06] MEDS ORDERED: FUROSEMIDE 40 MG/4 ML INJECTABLE VIAL IVPUSH ONE (14:15)
[2022-09-06 17:44] LABS: CHLORIDE 94 mmol/L (98-107); SODIUM 130 mmol/L (136-145)
[2022-09-06 17:47] LABS: CALCIUM 9.8 mg/dL (8.5-10.1)
[2022-09-06 17:48] LABS: ANION GAP 16 MMOL/L (8-16); CO2 20 mmol/L (21-32); GLUCOSE,RANDOM 100 mg/dL (74-106)
[2022-09-06 17:51] LABS: CREATININE 4.1 mg/dL (0.55-1.3)
[2022-09-06 17:54] LABS: BLOOD UREA NITROGEN 104.7 mg/dL (7-18)
[2022-09-06] MEDS: TRIAMCINOLONE ACET 0.1% CREAM 15 GM TUBE TP SCH (18:09)
[2022-09-06] MEDS: MINERAL OIL/PETROLAT/WATER TOPICAL CREAM 454 GM JAR TP SCH (18:40)
[2022-09-06] MEDS: predniSONE 20 MG TABLET (UD) PO SCH (21:45)
[2022-09-06] MEDS: APIXABAN 2.5 MG TABLET PO SCH (21:45)
[2022-09-06] MEDS: SODIUM ZIRCONIUM CYCLOSILICATE (LOKELMA) 5 GM PACKET PO SCH (21:45)
[2022-09-06] MEDS: METOPROLOL TARTRATE 50 MG TABLET (FP) PO SCH (23:58)
[2022-09-07] MEDS: LEVOTHYROXINE NA 75 MCG TABLET (FP) PO SCH (06:17)
[2022-09-07] MEDS: TRIAMCINOLONE ACET 0.1% CREAM 15 GM TUBE TP SCH (09:48)
[2022-09-07] MEDS: predniSONE 20 MG TABLET (UD) PO SCH ×2 (09:48→22:21)
[2022-09-07] MEDS: SODIUM ZIRCONIUM CYCLOSILICATE (LOKELMA) 5 GM PACKET PO SCH ×2 (09:48→22:21)
[2022-09-07] MEDS: MINERAL OIL/PETROLAT/WATER TOPICAL CREAM 454 GM JAR TP SCH (09:48)
[2022-09-07] MEDS: METOPROLOL TARTRATE 50 MG TABLET (FP) PO SCH ×2 (09:48→22:22)
[2022-09-07] MEDS: APIXABAN 2.5 MG TABLET PO SCH ×2 (09:48→22:22)
[2022-09-07 11:28] LABS: HEMATOCRIT 31.6 % (35.4-49); HEMOGLOBIN 10.3 GM/dL (11.7-16.9); MCH 29.1 pg (25.7-33.7); MCHC 32.6 g/dl (32.0-35.9); MEAN CELL VOLUME 89.1 fl (80-96); MEAN PLT VOLUME 8.5 fl (7.5-11.1); PLATELET COUNT 283 10^3/uL (134-434); RBC 3.55 M/mm3 (4.00-5.60); RDW 14.8 % (11.9-15.9); WHITE BLOOD COUNT 7.2 K/mm3 (4.0-10.0)
[2022-09-07 11:51] LABS: CALCIUM 9.5 mg/dL (8.5-10.1)
[2022-09-07 11:52] LABS: ALBUMIN 3.6 g/dl (3.4-5.0); BLOOD UREA NITROGEN 99.6 mg/dL (7-18); MAGNESIUM 2.1 mg/dL (1.8-2.4)
[2022-09-07 11:54] LABS: CREATININE 3.9 mg/dL (0.55-1.3); PHOSPHOROUS 4.3 mg/dL (2.5-4.9)
[2022-09-07 11:55] LABS: BILIRUBIN,TOTAL 1.6 mg/dL (0.2-1); TOT PROT 6.9 g/dl (6.4-8.2)
[2022-09-07 12:03] LABS: ANISOCYTOSIS 1+; MACROCYTOSIS 0
[2022-09-07] MEDS: SODIUM BICARBONATE 650 MG TABLET PO SCH ×2 (14:58→22:21)
[2022-09-07] MEDS: FUROSEMIDE 40 MG/4 ML INJECTABLE VIAL IVPUSH SCH (14:58)
[2022-09-07] MEDS: SIMETHICONE 80 MG TAB.CHEW (FP) PO PRN (17:44)
[2022-09-08] MEDS: LEVOTHYROXINE NA 75 MCG TABLET (FP) PO SCH (06:45)
[2022-09-08 10:38] LABS: HEMOGLOBIN 10.3 GM/dL (11.7-16.9); MCH 30.4 pg (25.7-33.7); MCHC 34.1 g/dl (32.0-35.9); MEAN PLT VOLUME 7.8 fl (7.5-11.1); PLATELET COUNT 256 10^3/uL (134-434); RBC 3.38 M/mm3 (4.00-5.60); RDW 14.7 % (11.9-15.9); WHITE BLOOD COUNT 15.5 K/mm3 (4.0-10.0)
[2022-09-08 11:17] LABS: ERYTHROCYTE SEDIMENTATION RATE 7 mm/hr (0-20)
[2022-09-08 11:26] LABS: CALCIUM 9.4 mg/dL (8.5-10.1)
[2022-09-08 11:27] LABS: ALBUMIN 3.3 g/dl (3.4-5.0); BLOOD UREA NITROGEN 103.9 mg/dL (7-18); MAGNESIUM 2.2 mg/dL (1.8-2.4)
[2022-09-08 11:30] LABS: CREATININE 4.1 mg/dL (0.55-1.3); PHOSPHOROUS 4.5 mg/dL (2.5-4.9)
[2022-09-08 11:31] LABS: BILIRUBIN,TOTAL 3.7 mg/dL (0.2-1); TOT PROT 6.3 g/dl (6.4-8.2)
[2022-09-08 11:33] LABS: ANISOCYTOSIS 0; MACROCYTOSIS 0
[2022-09-08] MEDS: SODIUM ZIRCONIUM CYCLOSILICATE (LOKELMA) 5 GM PACKET PO SCH ×2 (11:49→22:35)
[2022-09-08] MEDS: FUROSEMIDE 40 MG/4 ML INJECTABLE VIAL IVPUSH SCH (11:49)
[2022-09-08] MEDS: APIXABAN 2.5 MG TABLET PO SCH ×2 (11:50→22:35)
[2022-09-08] MEDS: predniSONE 20 MG TABLET (UD) PO SCH ×2 (11:50→22:35)
[2022-09-08] MEDS: SODIUM BICARBONATE 650 MG TABLET PO SCH ×2 (11:50→22:35)
[2022-09-08] MEDS: METOPROLOL TARTRATE 50 MG TABLET (FP) PO SCH ×2 (11:50→22:40)
[2022-09-08] MEDS: MINERAL OIL/PETROLAT/WATER TOPICAL CREAM 454 GM JAR TP SCH (11:53)
[2022-09-08] MEDS: TRIAMCINOLONE ACET 0.1% CREAM 15 GM TUBE TP SCH (11:53)
[2022-09-08 12:01] VITALS: BMI 23.5
[2022-09-09] MEDS: LEVOTHYROXINE NA 75 MCG TABLET (FP) PO SCH (06:31)
[2022-09-09] MEDS: APIXABAN 2.5 MG TABLET PO SCH ×2 (09:19→21:10)
[2022-09-09] MEDS: predniSONE 20 MG TABLET (UD) PO SCH ×2 (09:19→21:10)
[2022-09-09] MEDS: METOPROLOL TARTRATE 50 MG TABLET (FP) PO SCH ×2 (09:20→21:14)
[2022-09-09] MEDS: SODIUM ZIRCONIUM CYCLOSILICATE (LOKELMA) 5 GM PACKET PO SCH ×2 (09:20→21:14)
[2022-09-09] MEDS: SODIUM BICARBONATE 650 MG TABLET PO SCH ×2 (09:20→21:10)
[2022-09-09] MEDS: MINERAL OIL/PETROLAT/WATER TOPICAL CREAM 454 GM JAR TP SCH (09:21)
[2022-09-09] MEDS: TRIAMCINOLONE ACET 0.1% CREAM 15 GM TUBE TP SCH (09:21)
[2022-09-09] MEDS: FUROSEMIDE 40 MG/4 ML INJECTABLE VIAL IVPUSH SCH (10:28)
[2022-09-09 11:03] LABS: HEMOGLOBIN 9.3 GM/dL (11.7-16.9); MCH 29.4 pg (25.7-33.7); MCHC 33.3 g/dl (32.0-35.9); MEAN CELL VOLUME 88.3 fl (80-96); MEAN PLT VOLUME 8.2 fl (7.5-11.1); PLATELET COUNT 226 10^3/uL (134-434); RBC 3.17 M/mm3 (4.00-5.60); RDW 14.7 % (11.9-15.9); WHITE BLOOD COUNT 8.4 K/mm3 (4.0-10.0)
[2022-09-09 11:22] LABS: CHLORIDE 93 mmol/L (98-107); SODIUM 128 mmol/L (136-145)
[2022-09-09 11:30] LABS: ALBUMIN 3.2 g/dl (3.4-5.0)
[2022-09-09 11:31] LABS: ANION GAP 14 MMOL/L (8-16); CALCIUM 9.3 mg/dL (8.5-10.1); CO2 21 mmol/L (21-32); GLUCOSE,RANDOM 131 mg/dL (74-106); MAGNESIUM 2.4 mg/dL (1.8-2.4)
[2022-09-09 11:34] LABS: CREATININE 4.2 mg/dL (0.55-1.3); SGOT/AST 89 U/L (15-37); SGPT/ALT 38 U/L (13-61)
[2022-09-09 11:35] LABS: BILIRUBIN,TOTAL 3.6 mg/dL (0.2-1)
[2022-09-09 11:39] LABS: ALK PHOS 161 U/L (45-117); BLOOD UREA NITROGEN 113.6 mg/dL (7-18)
[2022-09-09 12:18] LABS: ANISOCYTOSIS 2+; MACROCYTOSIS 0; OVALOCYTE 1+; TEAR DROP CELLS 1+
[2022-09-09 21:27] LABS: CHOLESTEROL 88 mg/dL (50-200); TRIGLYCERIDES 82 mg/dL (0-150)
[2022-09-09 21:28] LABS: LDL CHOLESTEROL (ONLY SJRH) 53 mg/dL (5-100)
[2022-09-09 21:30] LABS: HDL CHOLESTEROL 20 mg/dL (40-60)
[2022-09-10] MEDS: LEVOTHYROXINE NA 75 MCG TABLET (FP) PO SCH (06:13)
[2022-09-10] MEDS: SODIUM BICARBONATE 650 MG TABLET PO SCH ×2 (09:21→22:41)
[2022-09-10] MEDS: METOPROLOL TARTRATE 50 MG TABLET (FP) PO SCH ×2 (09:21→22:41)
[2022-09-10] MEDS: predniSONE 20 MG TABLET (UD) PO SCH ×2 (09:24→22:41)
[2022-09-10] MEDS: APIXABAN 2.5 MG TABLET PO SCH ×2 (09:24→22:41)
[2022-09-10] MEDS: SODIUM ZIRCONIUM CYCLOSILICATE (LOKELMA) 5 GM PACKET PO SCH ×2 (09:25→22:42)
[2022-09-10] MEDS: SODIUM CHLORIDE 1 GM TABLET PO SCH ×2 (12:21→22:41)
[2022-09-10 12:37] LABS: HEMATOCRIT 27.9 % (35.4-49); HEMOGLOBIN 9.2 GM/dL (11.7-16.9); MCH 29.4 pg (25.7-33.7); MEAN CELL VOLUME 89.1 fl (80-96); MEAN PLT VOLUME 8.2 fl (7.5-11.1); PLATELET COUNT 224 10^3/uL (134-434); RBC 3.14 M/mm3 (4.00-5.60); RDW 15.1 % (11.9-15.9); WHITE BLOOD COUNT 8.4 K/mm3 (4.0-10.0)
[2022-09-10 12:40] LABS: CHLORIDE 92 mmol/L (98-107); SODIUM 131 mmol/L (136-145)
[2022-09-10 12:47] LABS: SGPT/ALT 34 U/L (13-61)
[2022-09-10 12:48] LABS: ALBUMIN 3.2 g/dl (3.4-5.0); CALCIUM 9.1 mg/dL (8.5-10.1); GLUCOSE,RANDOM 167 mg/dL (74-106); PHOSPHOROUS 4.8 mg/dL (2.5-4.9)
[2022-09-10 12:49] LABS: ANION GAP 16 MMOL/L (8-16); BILIRUBIN,TOTAL 2.1 mg/dL (0.2-1); CO2 23 mmol/L (21-32); MAGNESIUM 2.4 mg/dL (1.8-2.4); TOT PROT 6.3 g/dl (6.4-8.2)
[2022-09-10 12:50] LABS: ALK PHOS 166 U/L (45-117)
[2022-09-10 12:51] LABS: SGOT/AST 62 U/L (15-37)
[2022-09-10 12:59] LABS: BLOOD UREA NITROGEN 112.1 mg/dL (7-18)
[2022-09-10 13:17] LABS: ANISOCYTOSIS 2+; MACROCYTOSIS 0
[2022-09-10] MEDS: MINERAL OIL/PETROLAT/WATER TOPICAL CREAM 454 GM JAR TP SCH (15:11)
[2022-09-10] MEDS: TRIAMCINOLONE ACET 0.1% CREAM 15 GM TUBE TP SCH (15:12)
[2022-09-11] MEDS: LEVOTHYROXINE NA 75 MCG TABLET (FP) PO SCH (06:30)
[2022-09-11 10:33] LABS: CHLORIDE 93 mmol/L (98-107); SODIUM 133 mmol/L (136-145)
[2022-09-11 10:40] LABS: CREATININE 3.7 mg/dL (0.55-1.3)
[2022-09-11 10:41] LABS: SGOT/AST 52 U/L (15-37)
[2022-09-11 10:42] LABS: BILIRUBIN,TOTAL 1.7 mg/dL (0.2-1); TOT PROT 6.5 g/dl (6.4-8.2)
[2022-09-11] MEDS: APIXABAN 2.5 MG TABLET PO SCH ×2 (10:43→22:46)
[2022-09-11] MEDS: predniSONE 20 MG TABLET (UD) PO SCH ×2 (10:43→22:46)
[2022-09-11] MEDS: METOPROLOL TARTRATE 50 MG TABLET (FP) PO SCH ×2 (10:43→22:47)
[2022-09-11] MEDS: SODIUM CHLORIDE 1 GM TABLET PO SCH (10:43)
[2022-09-11] MEDS: MINERAL OIL/PETROLAT/WATER TOPICAL CREAM 454 GM JAR TP SCH (10:43)
[2022-09-11] MEDS: SODIUM BICARBONATE 650 MG TABLET PO SCH ×2 (10:43→22:46)
[2022-09-11] MEDS: SODIUM ZIRCONIUM CYCLOSILICATE (LOKELMA) 5 GM PACKET PO SCH (10:43)
[2022-09-11 10:44] LABS: ALK PHOS 169 U/L (45-117)
[2022-09-11] MEDS: TRIAMCINOLONE ACET 0.1% CREAM 15 GM TUBE TP SCH (10:44)
[2022-09-11 10:46] LABS: ANION GAP 14 MMOL/L (8-16); CO2 26 mmol/L (21-32)
[2022-09-11 10:48] LABS: ALBUMIN 3.3 g/dl (3.4-5.0); GLUCOSE,RANDOM 132 mg/dL (74-106)
[2022-09-11 10:49] LABS: CALCIUM 9.3 mg/dL (8.5-10.1)
[2022-09-11 10:50] LABS: SGPT/ALT 34 U/L (13-61)
[2022-09-11 10:52] LABS: BLOOD UREA NITROGEN 112.3 mg/dL (7-18)
[2022-09-12] MEDS: LEVOTHYROXINE NA 75 MCG TABLET (FP) PO SCH (06:04)
[2022-09-12] MEDS: predniSONE 20 MG TABLET (UD) PO SCH ×2 (11:30→22:45)
[2022-09-12] MEDS: SODIUM BICARBONATE 650 MG TABLET PO SCH ×2 (11:30→22:45)
[2022-09-12] MEDS: APIXABAN 2.5 MG TABLET PO SCH ×2 (11:30→22:45)
[2022-09-12] MEDS: METOPROLOL TARTRATE 50 MG TABLET (FP) PO SCH ×2 (11:30→22:45)
[2022-09-12] MEDS: MINERAL OIL/PETROLAT/WATER TOPICAL CREAM 454 GM JAR TP SCH (11:31)
[2022-09-12] MEDS: TRIAMCINOLONE ACET 0.1% CREAM 15 GM TUBE TP SCH (11:31)
[2022-09-12 12:15] LABS: BASO % 0.1 % (0-2.0); EOS % 0.1 % (0-4.5); HEMATOCRIT 32.1 % (35.4-49); HEMOGLOBIN 10.3 GM/dL (11.7-16.9); LYMPH % 2.5 % (8-40); MCH 29.9 pg (25.7-33.7); MCHC 32.1 g/dl (32.0-35.9); MEAN CELL VOLUME 93.2 fl (80-96); MEAN PLT VOLUME 8.4 fl (7.5-11.1); MONO % 6.9 % (3.8-10.2); NEUT % 90.4 % (42.8-82.8); PLATELET COUNT 209 10^3/uL (134-434); RBC 3.44 M/mm3 (4.00-5.60); RDW 15.9 % (11.9-15.9); WHITE BLOOD COUNT 7.5 K/mm3 (4.0-10.0)
[2022-09-12 12:32] LABS: CHLORIDE 94 mmol/L (98-107); SODIUM 131 mmol/L (136-145)
[2022-09-12 12:36] LABS: ANION GAP 15 MMOL/L (8-16); CALCIUM 9.4 mg/dL (8.5-10.1); CO2 22 mmol/L (21-32); GLUCOSE,RANDOM 166 mg/dL (74-106)
[2022-09-12 12:37] LABS: ALBUMIN 3.4 g/dl (3.4-5.0); MAGNESIUM 2.6 mg/dL (1.8-2.4)
[2022-09-12 12:40] LABS: CREATININE 3.7 mg/dL (0.55-1.3); SGPT/ALT 33 U/L (13-61)
[2022-09-12 12:42] LABS: ALK PHOS 160 U/L (45-117); BILIRUBIN,TOTAL 1.7 mg/dL (0.2-1); TOT PROT 6.7 g/dl (6.4-8.2)
[2022-09-12 12:52] LABS: BLOOD UREA NITROGEN 128.6 mg/dL (7-18); SGOT/AST 47 U/L (15-37)
[2022-09-12] MEDS: FUROSEMIDE 40 MG TABLET (FP) PO SCH (16:30)
[2022-09-13] MEDS: LEVOTHYROXINE NA 75 MCG TABLET (FP) PO SCH (06:31)
[2022-09-13] MEDS: PANTOPRAZOLE 40 MG TABLET PO SCH (10:04)
[2022-09-13] MEDS: METOPROLOL TARTRATE 50 MG TABLET (FP) PO SCH ×3 (10:04→22:09)
[2022-09-13] MEDS: SODIUM BICARBONATE 650 MG TABLET PO SCH ×2 (10:04→22:09)
[2022-09-13] MEDS: predniSONE 20 MG TABLET (UD) PO SCH ×2 (10:04→22:09)
[2022-09-13] MEDS: FUROSEMIDE 40 MG TABLET (FP) PO SCH (10:04)
[2022-09-13] MEDS: TRIAMCINOLONE ACET 0.1% CREAM 15 GM TUBE TP SCH (10:05)
[2022-09-13] MEDS: MINERAL OIL/PETROLAT/WATER TOPICAL CREAM 454 GM JAR TP SCH (10:05)
[2022-09-13] MEDS: APIXABAN 2.5 MG TABLET PO SCH (10:05)
[2022-09-13 10:56] LABS: HEMATOCRIT 30.8 % (35.4-49); HEMOGLOBIN 10.2 GM/dL (11.7-16.9); MCH 29.9 pg (25.7-33.7); MCHC 33.2 g/dl (32.0-35.9); MEAN PLT VOLUME 8.2 fl (7.5-11.1); PLATELET COUNT 233 10^3/uL (134-434); RBC 3.42 M/mm3 (4.00-5.60); RDW 15.3 % (11.9-15.9); WHITE BLOOD COUNT 8.6 K/mm3 (4.0-10.0)
[2022-09-13 11:13] LABS: CHLORIDE 92 mmol/L (98-107); SODIUM 131 mmol/L (136-145)
[2022-09-13 11:15] LABS: CALCIUM 9.3 mg/dL (8.5-10.1)
[2022-09-13 11:16] LABS: ALBUMIN 3.4 g/dl (3.4-5.0); ANION GAP 15 MMOL/L (8-16); CO2 23 mmol/L (21-32); GLUCOSE,RANDOM 148 mg/dL (74-106); MAGNESIUM 2.5 mg/dL (1.8-2.4)
[2022-09-13 11:18] LABS: CREATININE 3.7 mg/dL (0.55-1.3); SGPT/ALT 29 U/L (13-61)
[2022-09-13 11:20] LABS: SGOT/AST 42 U/L (15-37)
[2022-09-13 11:21] LABS: BILIRUBIN,TOTAL 1.8 mg/dL (0.2-1); TOT PROT 6.5 g/dl (6.4-8.2)
[2022-09-13 11:22] LABS: ALK PHOS 146 U/L (45-117); BLOOD UREA NITROGEN 131.8 mg/dL (7-18)
[2022-09-13 11:58] LABS: ANISOCYTOSIS 0; HELMET CELLS 0; HOWELL-JOLLY BODIES 0; MACROCYTOSIS 0; OVALOCYTE 0; ROULEAU 0; SICKELED CELLS 0; TARGET CELLS 0; TEAR DROP CELLS 0; TOXIC GRANULATION 0
[2022-09-14] MEDS: LEVOTHYROXINE NA 75 MCG TABLET (FP) PO SCH (06:49)
[2022-09-14 08:04] LABS: HEMATOCRIT 29.9 % (35.4-49); HEMOGLOBIN 10.2 GM/dL (11.7-16.9); MCH 30.3 pg (25.7-33.7); MCHC 34.1 g/dl (32.0-35.9); MEAN CELL VOLUME 88.9 fl (80-96); MEAN PLT VOLUME 8.3 fl (7.5-11.1); PLATELET COUNT 237 10^3/uL (134-434); RBC 3.37 M/mm3 (4.00-5.60); RDW 15.4 % (11.9-15.9); WHITE BLOOD COUNT 9.3 K/mm3 (4.0-10.0)
[2022-09-14 08:13] LABS: CHLORIDE 93 mmol/L (98-107); SODIUM 132 mmol/L (136-145)
[2022-09-14 08:15] LABS: ALBUMIN 3.4 g/dl (3.4-5.0); ANION GAP 15 MMOL/L (8-16); CALCIUM 9.3 mg/dL (8.5-10.1); CO2 24 mmol/L (21-32); GLUCOSE,RANDOM 125 mg/dL (74-106); MAGNESIUM 2.4 mg/dL (1.8-2.4)
[2022-09-14 08:17] LABS: SGPT/ALT 27 U/L (13-61)
[2022-09-14 08:19] LABS: CREATININE 3.9 mg/dL (0.55-1.3); SGOT/AST 30 U/L (15-37)
[2022-09-14 08:20] LABS: BILIRUBIN,TOTAL 1.6 mg/dL (0.2-1); TOT PROT 6.6 g/dl (6.4-8.2)
[2022-09-14 08:21] LABS: ALK PHOS 127 U/L (45-117); BLOOD UREA NITROGEN 144.4 mg/dL (7-18)
[2022-09-14 08:58] LABS: ANISOCYTOSIS 0; HELMET CELLS 0; HOWELL-JOLLY BODIES 0; MACROCYTOSIS 0; OVALOCYTE 0; ROULEAU 0; SICKELED CELLS 0; TARGET CELLS 0; TEAR DROP CELLS 0; TOXIC GRANULATION 0
[2022-09-14] MEDS: MINERAL OIL/PETROLAT/WATER TOPICAL CREAM 454 GM JAR TP SCH (10:57)
[2022-09-14] MEDS: PANTOPRAZOLE 40 MG TABLET PO SCH (10:57)
[2022-09-14] MEDS: predniSONE 20 MG TABLET (UD) PO SCH (10:57)
[2022-09-14] MEDS: SODIUM BICARBONATE 650 MG TABLET PO SCH ×2 (10:57→22:03)
[2022-09-14] MEDS: FUROSEMIDE 40 MG TABLET (FP) PO SCH (10:57)
[2022-09-14] MEDS: METOPROLOL TARTRATE 50 MG TABLET (FP) PO SCH ×2 (10:58→22:02)
[2022-09-14] MEDS: TRIAMCINOLONE ACET 0.1% CREAM 15 GM TUBE TP SCH (10:58)
[2022-09-14] MEDS: LACTULOSE 20 GM/30 ML UDC (FOR ORAL USE ONLY) PO SCH ×3 (14:56→22:02)
[2022-09-15] MEDS: LEVOTHYROXINE NA 75 MCG TABLET (FP) PO SCH (06:05)
[2022-09-15] MEDS: LACTULOSE 20 GM/30 ML UDC (FOR ORAL USE ONLY) PO SCH ×3 (06:05→21:33)
[2022-09-15] MEDS: predniSONE 20 MG TABLET (UD) PO SCH (09:39)
[2022-09-15] MEDS: METOPROLOL TARTRATE 50 MG TABLET (FP) PO SCH ×2 (09:39→21:32)
[2022-09-15] MEDS: PANTOPRAZOLE 40 MG TABLET PO SCH (09:39)
[2022-09-15] MEDS: FUROSEMIDE 40 MG TABLET (FP) PO SCH (09:39)
[2022-09-15] MEDS: SODIUM BICARBONATE 650 MG TABLET PO SCH ×2 (09:39→21:33)
[2022-09-15 09:55] LABS: BASO % 0.2 % (0-2.0); EOS % 0.1 % (0-4.5); HEMATOCRIT 31.6 % (35.4-49); HEMOGLOBIN 10.2 GM/dL (11.7-16.9); LYMPH % 2.5 % (8-40); MCH 29.3 pg (25.7-33.7); MCHC 32.4 g/dl (32.0-35.9); MEAN CELL VOLUME 90.5 fl (80-96); MEAN PLT VOLUME 8.6 fl (7.5-11.1); MONO % 9.9 % (3.8-10.2); NEUT % 87.3 % (42.8-82.8); PLATELET COUNT 258 10^3/uL (134-434); RBC 3.49 M/mm3 (4.00-5.60); RDW 15.2 % (11.9-15.9); WHITE BLOOD COUNT 10.8 K/mm3 (4.0-10.0)
[2022-09-15 10:02] LABS: INR 1.54 (0.83-1.09); PROTHROMBIN TIME (PATIENT) 17.8 SEC (9.7-13.0)
[2022-09-15 10:24] LABS: CHLORIDE 93 mmol/L (98-107); SODIUM 132 mmol/L (136-145)
[2022-09-15 10:28] LABS: ALBUMIN 3.5 g/dl (3.4-5.0); ANION GAP 14 MMOL/L (8-16); CALCIUM 9.3 mg/dL (8.5-10.1); CO2 25 mmol/L (21-32); GLUCOSE,RANDOM 116 mg/dL (74-106); MAGNESIUM 2.6 mg/dL (1.8-2.4)
[2022-09-15 10:32] LABS: CREATININE 4.3 mg/dL (0.55-1.3); SGOT/AST 28 U/L (15-37); SGPT/ALT 22 U/L (13-61)
[2022-09-15 10:33] LABS: BILIRUBIN,TOTAL 1.8 mg/dL (0.2-1); TOT PROT 6.6 g/dl (6.4-8.2)
[2022-09-15 10:34] LABS: ALK PHOS 115 U/L (45-117)
[2022-09-15] MEDS: TRIAMCINOLONE ACET 0.1% CREAM 15 GM TUBE TP SCH (10:52)
[2022-09-15] MEDS: MINERAL OIL/PETROLAT/WATER TOPICAL CREAM 454 GM JAR TP SCH (10:52)
[2022-09-15 12:09] LABS: BLOOD UREA NITROGEN 157.8 mg/dL (7-18)
[2022-09-15 15:00] LABS: BF WBC & OTHER NUCLEATED CELLS 204 /mm3
[2022-09-15 15:30] LABS: BODY FLUID MACROPHAGES 80 %; BODY FLUID MESOTHELIAL 5 %
[2022-09-16] MEDS: LACTULOSE 20 GM/30 ML UDC (FOR ORAL USE ONLY) PO SCH ×3 (05:55→21:36)
[2022-09-16] MEDS: LEVOTHYROXINE NA 75 MCG TABLET (FP) PO SCH (06:12)
[2022-09-16 09:59] LABS: BASO % 0.2 % (0-2.0); EOS % 0.5 % (0-4.5); HEMATOCRIT 31.4 % (35.4-49); HEMOGLOBIN 10.4 GM/dL (11.7-16.9); LYMPH % 2.8 % (8-40); MCH 29.6 pg (25.7-33.7); MCHC 33.2 g/dl (32.0-35.9); MEAN CELL VOLUME 89.3 fl (80-96); MEAN PLT VOLUME 8.6 fl (7.5-11.1); MONO % 7.9 % (3.8-10.2); NEUT % 88.6 % (42.8-82.8); PLATELET COUNT 237 10^3/uL (134-434); RBC 3.51 M/mm3 (4.00-5.60); RDW 14.9 % (11.9-15.9); WHITE BLOOD COUNT 10.6 K/mm3 (4.0-10.0)
[2022-09-16 10:04] LABS: INR 1.37 (0.83-1.09); PROTHROMBIN TIME (PATIENT) 15.8 SEC (9.7-13.0)
[2022-09-16 10:47] LABS: CHLORIDE 96 mmol/L (98-107); SODIUM 134 mmol/L (136-145)
[2022-09-16 11:07] LABS: CALCIUM 9.3 mg/dL (8.5-10.1); GLUCOSE,RANDOM 100 mg/dL (74-106)
[2022-09-16 11:09] LABS: ALBUMIN 3.3 g/dl (3.4-5.0); ANION GAP 16 MMOL/L (8-16); CO2 22 mmol/L (21-32); MAGNESIUM 2.7 mg/dL (1.8-2.4)
[2022-09-16 11:11] LABS: SGOT/AST 37 U/L (15-37); SGPT/ALT 22 U/L (13-61)
[2022-09-16 11:14] LABS: BILIRUBIN,TOTAL 1.7 mg/dL (0.2-1); TOT PROT 6.2 g/dl (6.4-8.2)
[2022-09-16 11:15] LABS: ALK PHOS 111 U/L (45-117)
[2022-09-16] MEDS: SODIUM BICARBONATE 650 MG TABLET PO SCH ×2 (11:26→21:36)
[2022-09-16] MEDS: PANTOPRAZOLE 40 MG TABLET PO SCH (11:26)
[2022-09-16] MEDS: predniSONE 20 MG TABLET (UD) PO SCH (11:27)
[2022-09-16] MEDS: METOPROLOL TARTRATE 50 MG TABLET (FP) PO SCH ×2 (11:28→21:37)
[2022-09-16 12:01] LABS: BLOOD UREA NITROGEN 163.1 mg/dL (7-18)
[2022-09-16] MEDS ORDERED: SODIUM CHLORIDE 500 ML IV STA (12:46)
[2022-09-16] MEDS ORDERED: predniSONE 10 MG TABLET (UD) PO SCH (12:49)
[2022-09-16] MEDS: TRIAMCINOLONE ACET 0.1% CREAM 15 GM TUBE TP SCH (13:21)
[2022-09-16] MEDS: MINERAL OIL/PETROLAT/WATER TOPICAL CREAM 454 GM JAR TP SCH (13:21)
[2022-09-16] MEDS: APIXABAN 2.5 MG TABLET PO SCH (21:36)
[2022-09-17] MEDS: LEVOTHYROXINE NA 75 MCG TABLET (FP) PO SCH (06:00)
[2022-09-17] MEDS: LACTULOSE 20 GM/30 ML UDC (FOR ORAL USE ONLY) PO SCH ×3 (06:00→23:20)
[2022-09-17] MEDS: TRIAMCINOLONE ACET 0.1% CREAM 15 GM TUBE TP SCH (09:39)
[2022-09-17] MEDS: MINERAL OIL/PETROLAT/WATER TOPICAL CREAM 454 GM JAR TP SCH (09:40)
[2022-09-17] MEDS: SODIUM BICARBONATE 650 MG TABLET PO SCH ×2 (09:40→23:20)
[2022-09-17] MEDS: METOPROLOL TARTRATE 50 MG TABLET (FP) PO SCH ×2 (09:40→23:20)
[2022-09-17] MEDS: APIXABAN 2.5 MG TABLET PO SCH ×2 (09:41→23:20)
[2022-09-17 10:17] LABS: HEMATOCRIT 31.1 % (35.4-49); HEMOGLOBIN 10.3 GM/dL (11.7-16.9); MCH 29.6 pg (25.7-33.7); MCHC 33.1 g/dl (32.0-35.9); MEAN CELL VOLUME 89.6 fl (80-96); MEAN PLT VOLUME 8.7 fl (7.5-11.1); PLATELET COUNT 242 10^3/uL (134-434); RBC 3.47 M/mm3 (4.00-5.60); RDW 15.3 % (11.9-15.9); WHITE BLOOD COUNT 9.9 K/mm3 (4.0-10.0)
[2022-09-17 10:37] LABS: CHLORIDE 96 mmol/L (98-107); SODIUM 134 mmol/L (136-145)
[2022-09-17 10:50] LABS: BILIRUBIN,TOTAL 1.6 mg/dL (0.2-1)
[2022-09-17 10:51] LABS: ANION GAP 16 MMOL/L (8-16); CALCIUM 9.4 mg/dL (8.5-10.1); CO2 22 mmol/L (21-32); GLUCOSE,RANDOM 134 mg/dL (74-106); MAGNESIUM 2.8 mg/dL (1.8-2.4); TOT PROT 6.1 g/dl (6.4-8.2)
[2022-09-17 10:52] LABS: ALBUMIN 3.2 g/dl (3.4-5.0)
[2022-09-17 10:53] LABS: ALK PHOS 113 U/L (45-117)
[2022-09-17 10:54] LABS: CREATININE 3.6 mg/dL (0.55-1.3); SGOT/AST 31 U/L (15-37); SGPT/ALT 21 U/L (13-61)
[2022-09-17 11:01] LABS: ANISOCYTOSIS 0; HELMET CELLS 0; HOWELL-JOLLY BODIES 0; MACROCYTOSIS 0; OVALOCYTE 0; ROULEAU 0; SICKELED CELLS 0; TARGET CELLS 0; TEAR DROP CELLS 0; TOXIC GRANULATION 0
[2022-09-17] MEDS ORDERED: SODIUM CHLORIDE NASAL SPRAY 44 ML BOTTLE NS PRN (11:26)
[2022-09-17] MEDS: PANTOPRAZOLE 40 MG TABLET PO SCH (11:40)
[2022-09-17] MEDS ORDERED: SODIUM CHLORIDE 1,000 ML IV SCH (12:30)
[2022-09-17] MEDS: dilTIAZem HCL 30 MG TABLET PO SCH (13:20)
[2022-09-18] MEDS: dilTIAZem HCL 30 MG TABLET PO SCH ×3 (00:58→21:55)
[2022-09-18] MEDS: LEVOTHYROXINE NA 75 MCG TABLET (FP) PO SCH (06:12)
[2022-09-18] MEDS: LACTULOSE 20 GM/30 ML UDC (FOR ORAL USE ONLY) PO SCH ×3 (06:12→21:56)
[2022-09-18 09:27] LABS: BASO % 0.3 % (0-2.0); EOS % 1.2 % (0-4.5); HEMATOCRIT 31.6 % (35.4-49); HEMOGLOBIN 10.3 GM/dL (11.7-16.9); LYMPH % 2.5 % (8-40); MCH 29.2 pg (25.7-33.7); MCHC 32.6 g/dl (32.0-35.9); MEAN CELL VOLUME 89.4 fl (80-96); MEAN PLT VOLUME 8.7 fl (7.5-11.1); MONO % 7.8 % (3.8-10.2); NEUT % 88.2 % (42.8-82.8); PLATELET COUNT 235 10^3/uL (134-434); RBC 3.54 M/mm3 (4.00-5.60); RDW 15.1 % (11.9-15.9); WHITE BLOOD COUNT 11.8 K/mm3 (4.0-10.0)
[2022-09-18 09:58] LABS: CHLORIDE 99 mmol/L (98-107); SODIUM 137 mmol/L (136-145)
[2022-09-18 10:22] LABS: BILIRUBIN,TOTAL 1.3 mg/dL (0.2-1)
[2022-09-18 10:23] LABS: CREATININE 3.2 mg/dL (0.55-1.3); GLUCOSE,RANDOM 111 mg/dL (74-106)
[2022-09-18 10:24] LABS: ALK PHOS 120 U/L (45-117); ANION GAP 14 MMOL/L (8-16); CALCIUM 9.2 mg/dL (8.5-10.1); CO2 24 mmol/L (21-32); MAGNESIUM 2.6 mg/dL (1.8-2.4); SGOT/AST 29 U/L (15-37); SGPT/ALT 20 U/L (13-61)
[2022-09-18 10:26] LABS: TOT PROT 5.9 g/dl (6.4-8.2)
[2022-09-18] MEDS: PANTOPRAZOLE 40 MG TABLET PO SCH (10:29)
[2022-09-18] MEDS: predniSONE 5 MG TABLET (UD) PO SCH (10:29)
[2022-09-18] MEDS: METOPROLOL TARTRATE 50 MG TABLET (FP) PO SCH ×3 (10:29→21:56)
[2022-09-18] MEDS: APIXABAN 2.5 MG TABLET PO SCH ×2 (10:29→21:55)
[2022-09-18] MEDS: SODIUM BICARBONATE 650 MG TABLET PO SCH ×2 (10:29→21:55)
[2022-09-18] MEDS: MINERAL OIL/PETROLAT/WATER TOPICAL CREAM 454 GM JAR TP SCH (10:30)
[2022-09-18] MEDS: TRIAMCINOLONE ACET 0.1% CREAM 15 GM TUBE TP SCH (10:30)
[2022-09-18 10:37] LABS: BLOOD UREA NITROGEN 134.8 mg/dL (7-18)
[2022-09-19] MEDS: LEVOTHYROXINE NA 75 MCG TABLET (FP) PO SCH (06:56)
[2022-09-19 09:15] LABS: BASO % 0.1 % (0-2.0); EOS % 1.4 % (0-4.5); HEMATOCRIT 31.2 % (35.4-49); HEMOGLOBIN 10.3 GM/dL (11.7-16.9); LYMPH % 2.4 % (8-40); MCH 29.5 pg (25.7-33.7); MCHC 32.9 g/dl (32.0-35.9); MEAN CELL VOLUME 89.5 fl (80-96); MEAN PLT VOLUME 8.5 fl (7.5-11.1); MONO % 7.8 % (3.8-10.2); NEUT % 88.3 % (42.8-82.8); PLATELET COUNT 211 10^3/uL (134-434); RBC 3.49 M/mm3 (4.00-5.60); RDW 15.1 % (11.9-15.9); WHITE BLOOD COUNT 11.9 K/mm3 (4.0-10.0)
[2022-09-19 09:36] LABS: CHLORIDE 100 mmol/L (98-107); SODIUM 138 mmol/L (136-145)
[2022-09-19 09:41] LABS: CALCIUM 8.9 mg/dL (8.5-10.1)
[2022-09-19 09:42] LABS: ANION GAP 14 MMOL/L (8-16); CO2 24 mmol/L (21-32); GLUCOSE,RANDOM 109 mg/dL (74-106); MAGNESIUM 2.5 mg/dL (1.8-2.4)
[2022-09-19 09:45] LABS: CREATININE 3.1 mg/dL (0.55-1.3); SGOT/AST 26 U/L (15-37); SGPT/ALT 20 U/L (13-61)
[2022-09-19 09:46] LABS: TOT PROT 5.8 g/dl (6.4-8.2)
[2022-09-19 09:47] LABS: BILIRUBIN,TOTAL 1.7 mg/dL (0.2-1)
[2022-09-19 09:48] LABS: ALK PHOS 110 U/L (45-117)
[2022-09-19 09:52] LABS: BLOOD UREA NITROGEN 126.7 mg/dL (7-18)
[2022-09-19] MEDS: APIXABAN 2.5 MG TABLET PO SCH ×2 (10:32→21:53)
[2022-09-19] MEDS: PANTOPRAZOLE 40 MG TABLET PO SCH (10:33)
[2022-09-19] MEDS: dilTIAZem HCL 30 MG TABLET PO SCH ×2 (10:33→21:53)
[2022-09-19] MEDS: METOPROLOL TARTRATE 50 MG TABLET (FP) PO SCH ×2 (10:33→21:53)
[2022-09-19] MEDS: predniSONE 5 MG TABLET (UD) PO SCH (10:33)
[2022-09-19] MEDS: SODIUM BICARBONATE 650 MG TABLET PO SCH ×2 (10:33→21:53)
[2022-09-19] MEDS: LACTULOSE 20 GM/30 ML UDC (FOR ORAL USE ONLY) PO SCH ×4 (10:33→21:53)
[2022-09-19] MEDS: RIFAXIMIN 550 MG TABLET PO SCH ×2 (10:35→21:53)
[2022-09-19 13:08] LABS: BODY FLUID ALBUMIN 2.2 g/dL (Not Estab.)
[2022-09-19] MEDS: TRIAMCINOLONE ACET 0.1% CREAM 15 GM TUBE TP SCH (15:00)
[2022-09-19] MEDS: MINERAL OIL/PETROLAT/WATER TOPICAL CREAM 454 GM JAR TP SCH (15:00)
[2022-09-20] MEDS: LEVOTHYROXINE NA 75 MCG TABLET (FP) PO SCH (06:24)
[2022-09-20] MEDS: PANTOPRAZOLE 40 MG TABLET PO SCH (10:32)
[2022-09-20] MEDS: MINERAL OIL/PETROLAT/WATER TOPICAL CREAM 454 GM JAR TP SCH (10:32)
[2022-09-20] MEDS: SODIUM BICARBONATE 650 MG TABLET PO SCH ×2 (10:32→21:13)
[2022-09-20] MEDS: TRIAMCINOLONE ACET 0.1% CREAM 15 GM TUBE TP SCH (10:32)
[2022-09-20] MEDS: RIFAXIMIN 550 MG TABLET PO SCH ×2 (10:32→21:14)
[2022-09-20] MEDS: dilTIAZem HCL 30 MG TABLET PO SCH ×2 (10:32→21:13)
[2022-09-20] MEDS: LACTULOSE 20 GM/30 ML UDC (FOR ORAL USE ONLY) PO SCH ×4 (10:32→21:14)
[2022-09-20] MEDS: APIXABAN 2.5 MG TABLET PO SCH ×2 (10:32→21:13)
[2022-09-20] MEDS: METOPROLOL TARTRATE 50 MG TABLET (FP) PO SCH ×2 (10:49→21:13)
[2022-09-20 11:22] LABS: BASO % 0.3 % (0-2.0); HEMATOCRIT 31.7 % (35.4-49); HEMOGLOBIN 10.2 GM/dL (11.7-16.9); LYMPH % 2.4 % (8-40); MCH 29.1 pg (25.7-33.7); MCHC 32.1 g/dl (32.0-35.9); MEAN CELL VOLUME 90.7 fl (80-96); MEAN PLT VOLUME 8.7 fl (7.5-11.1); MONO % 7.6 % (3.8-10.2); NEUT % 87.7 % (42.8-82.8); PLATELET COUNT 214 10^3/uL (134-434); RDW 15.4 % (11.9-15.9); WHITE BLOOD COUNT 11.7 K/mm3 (4.0-10.0)
[2022-09-20 11:37] LABS: CHLORIDE 100 mmol/L (98-107); SODIUM 138 mmol/L (136-145)
[2022-09-20 11:41] LABS: ANION GAP 10 MMOL/L (8-16); CALCIUM 8.8 mg/dL (8.5-10.1); CO2 29 mmol/L (21-32); MAGNESIUM 2.4 mg/dL (1.8-2.4)
[2022-09-20 11:44] LABS: ALBUMIN 2.9 g/dl (3.4-5.0); GLUCOSE,RANDOM 97 mg/dL (74-106)
[2022-09-20 11:45] LABS: CREATININE 2.8 mg/dL (0.55-1.3); SGOT/AST 30 U/L (15-37)
[2022-09-20 11:46] LABS: BILIRUBIN,TOTAL 1.4 mg/dL (0.2-1); TOT PROT 5.9 g/dl (6.4-8.2)
[2022-09-20 11:47] LABS: ALK PHOS 129 U/L (45-117); SGPT/ALT 21 U/L (13-61)
[2022-09-20 11:50] LABS: BLOOD UREA NITROGEN 114.6 mg/dL (7-18)
[2022-09-21] MEDS: LEVOTHYROXINE NA 75 MCG TABLET (FP) PO SCH (06:14)
[2022-09-21] MEDS: RIFAXIMIN 550 MG TABLET PO SCH ×2 (10:33→21:41)
[2022-09-21] MEDS: PANTOPRAZOLE 40 MG TABLET PO SCH (10:34)
[2022-09-21] MEDS: METOPROLOL TARTRATE 50 MG TABLET (FP) PO SCH ×2 (10:34→21:38)
[2022-09-21] MEDS: LACTULOSE 20 GM/30 ML UDC (FOR ORAL USE ONLY) PO SCH ×4 (10:35→21:41)
[2022-09-21] MEDS: dilTIAZem HCL 30 MG TABLET PO SCH ×2 (10:35→21:41)
[2022-09-21] MEDS: APIXABAN 2.5 MG TABLET PO SCH ×2 (10:35→21:42)
[2022-09-21] MEDS: SODIUM BICARBONATE 650 MG TABLET PO SCH ×2 (10:37→21:41)
[2022-09-21] MEDS: TRIAMCINOLONE ACET 0.1% CREAM 15 GM TUBE TP SCH (10:43)
[2022-09-21] MEDS: MINERAL OIL/PETROLAT/WATER TOPICAL CREAM 454 GM JAR TP SCH (10:43)
[2022-09-21 11:43] LABS: BASO % 0.1 % (0-2.0); EOS % 2.8 % (0-4.5); HEMATOCRIT 32.6 % (35.4-49); HEMOGLOBIN 10.5 GM/dL (11.7-16.9); LYMPH % 2.2 % (8-40); MCH 29.2 pg (25.7-33.7); MCHC 32.3 g/dl (32.0-35.9); MEAN CELL VOLUME 90.4 fl (80-96); MEAN PLT VOLUME 8.9 fl (7.5-11.1); MONO % 7.4 % (3.8-10.2); NEUT % 87.5 % (42.8-82.8); PLATELET COUNT 225 10^3/uL (134-434); RBC 3.61 M/mm3 (4.00-5.60); RDW 15.7 % (11.9-15.9); WHITE BLOOD COUNT 10.8 K/mm3 (4.0-10.0)
[2022-09-21 12:14] LABS: CALCIUM 8.8 mg/dL (8.5-10.1)
[2022-09-21 12:15] LABS: BLOOD UREA NITROGEN 100.6 mg/dL (7-18)
[2022-09-21 12:18] LABS: CREATININE 2.7 mg/dL (0.55-1.3)
[2022-09-21 12:19] LABS: TOT PROT 5.9 g/dl (6.4-8.2)
[2022-09-21] MEDS ORDERED: ACETAMINOPHEN 1000 MG/100 ML BAG IVPB ONE (22:43)
[2022-09-22] MEDS: LEVOTHYROXINE NA 75 MCG TABLET (FP) PO SCH (06:15)
[2022-09-22 10:38] LABS: BASO % 0.5 % (0-2.0); EOS % 1.7 % (0-4.5); HEMATOCRIT 28.1 % (35.4-49); HEMOGLOBIN 9.1 GM/dL (11.7-16.9); LYMPH % 1.8 % (8-40); MCH 29.1 pg (25.7-33.7); MCHC 32.2 g/dl (32.0-35.9); MEAN CELL VOLUME 90.2 fl (80-96); MEAN PLT VOLUME 9.4 fl (7.5-11.1); MONO % 9.1 % (3.8-10.2); NEUT % 86.9 % (42.8-82.8); PLATELET COUNT 218 10^3/uL (134-434); RBC 3.12 M/mm3 (4.00-5.60); RDW 15.6 % (11.9-15.9); WHITE BLOOD COUNT 11.5 K/mm3 (4.0-10.0)
[2022-09-22] MEDS: METOPROLOL TARTRATE 50 MG TABLET (FP) PO SCH ×2 (10:40→22:21)
[2022-09-22 10:53] LABS: CALCIUM 8.7 mg/dL (8.5-10.1)
[2022-09-22 10:54] LABS: BLOOD UREA NITROGEN 93.9 mg/dL (7-18); MAGNESIUM 2.5 mg/dL (1.8-2.4)
[2022-09-22 10:57] LABS: CREATININE 2.7 mg/dL (0.55-1.3)
[2022-09-22 10:58] LABS: TOT PROT 5.8 g/dl (6.4-8.2)
[2022-09-22 10:59] LABS: BILIRUBIN,TOTAL 1.8 mg/dL (0.2-1)
[2022-09-22] MEDS: TRIAMCINOLONE ACET 0.1% CREAM 15 GM TUBE TP SCH (11:10)
[2022-09-22] MEDS: APIXABAN 2.5 MG TABLET PO SCH ×2 (11:10→22:21)
[2022-09-22] MEDS: RIFAXIMIN 550 MG TABLET PO SCH ×2 (11:10→22:21)
[2022-09-22] MEDS: PANTOPRAZOLE 40 MG TABLET PO SCH (11:10)
[2022-09-22] MEDS: SODIUM BICARBONATE 650 MG TABLET PO SCH ×2 (11:10→22:21)
[2022-09-22] MEDS: MINERAL OIL/PETROLAT/WATER TOPICAL CREAM 454 GM JAR TP SCH (11:11)
[2022-09-22] MEDS: LACTULOSE 20 GM/30 ML UDC (FOR ORAL USE ONLY) PO SCH ×4 (11:11→22:21)
[2022-09-22] MEDS: dilTIAZem HCL 30 MG TABLET PO SCH ×2 (11:12→22:21)
[2022-09-22] MEDS ORDERED: ACETAMINOPHEN 1000 MG/100 ML BAG IVPB ONE (12:37)
[2022-09-23] MEDS: LEVOTHYROXINE NA 75 MCG TABLET (FP) PO SCH (06:05)
[2022-09-23 09:49] LABS: BASO % 0.5 % (0-2.0); EOS % 1.2 % (0-4.5); HEMATOCRIT 28.7 % (35.4-49); HEMOGLOBIN 9.5 GM/dL (11.7-16.9); LYMPH % 2.1 % (8-40); MCHC 33.2 g/dl (32.0-35.9); MEAN CELL VOLUME 90.4 fl (80-96); MEAN PLT VOLUME 8.7 fl (7.5-11.1); MONO % 12.5 % (3.8-10.2); NEUT % 83.7 % (42.8-82.8); PLATELET COUNT 171 10^3/uL (134-434); RBC 3.17 M/mm3 (4.00-5.60); RDW 15.9 % (11.9-15.9); WHITE BLOOD COUNT 11.3 K/mm3 (4.0-10.0)
[2022-09-23 10:08] LABS: ALBUMIN 2.9 g/dl (3.4-5.0); BLOOD UREA NITROGEN 93.8 mg/dL (7-18); CALCIUM 8.5 mg/dL (8.5-10.1)
[2022-09-23 10:09] LABS: MAGNESIUM 2.4 mg/dL (1.8-2.4)
[2022-09-23 10:10] LABS: CREATININE 2.7 mg/dL (0.55-1.3)
[2022-09-23 10:11] LABS: PHOSPHOROUS 2.3 mg/dL (2.5-4.9); TOT PROT 5.9 g/dl (6.4-8.2)
[2022-09-23] MEDS: FUROSEMIDE 40 MG TABLET (FP) PO SCH (10:22)
[2022-09-23] MEDS: APIXABAN 2.5 MG TABLET PO SCH ×2 (10:22→23:25)
[2022-09-23] MEDS: RIFAXIMIN 550 MG TABLET PO SCH ×2 (10:22→23:26)
[2022-09-23] MEDS: SODIUM BICARBONATE 650 MG TABLET PO SCH ×2 (10:22→23:26)
[2022-09-23] MEDS: PANTOPRAZOLE 40 MG TABLET PO SCH (10:22)
[2022-09-23] MEDS: TRIAMCINOLONE ACET 0.1% CREAM 15 GM TUBE TP SCH (10:23)
[2022-09-23] MEDS: METOPROLOL TARTRATE 50 MG TABLET (FP) PO SCH ×2 (10:23→23:26)
[2022-09-23] MEDS: LACTULOSE 20 GM/30 ML UDC (FOR ORAL USE ONLY) PO SCH ×4 (10:24→23:25)
[2022-09-23] MEDS: MINERAL OIL/PETROLAT/WATER TOPICAL CREAM 454 GM JAR TP SCH (10:24)
[2022-09-23] MEDS: dilTIAZem HCL 30 MG TABLET PO SCH ×2 (10:24→23:25)
[2022-09-23] MEDS: ACETAMINOPHEN 1000 MG/100 ML BAG IVPB ONE ×2 (16:03→17:57)
[2022-09-24] MEDS: LEVOTHYROXINE NA 75 MCG TABLET (FP) PO SCH (06:25)
[2022-09-24 09:42] LABS: BASO % 0.3 % (0-2.0); HEMATOCRIT 29.4 % (35.4-49); HEMOGLOBIN 9.5 GM/dL (11.7-16.9); LYMPH % 2.4 % (8-40); MCH 29.3 pg (25.7-33.7); MCHC 32.3 g/dl (32.0-35.9); MEAN CELL VOLUME 90.7 fl (80-96); MEAN PLT VOLUME 8.7 fl (7.5-11.1); NEUT % 86.3 % (42.8-82.8); PLATELET COUNT 190 10^3/uL (134-434); RBC 3.24 M/mm3 (4.00-5.60); RDW 15.7 % (11.9-15.9); WHITE BLOOD COUNT 10.9 K/mm3 (4.0-10.0)
[2022-09-24 10:11] LABS: MAGNESIUM 2.4 mg/dL (1.8-2.4)
[2022-09-24 10:14] LABS: PHOSPHOROUS 2.7 mg/dL (2.5-4.9)
[2022-09-24] MEDS: RIFAXIMIN 550 MG TABLET PO SCH ×2 (10:33→22:52)
[2022-09-24] MEDS: APIXABAN 2.5 MG TABLET PO SCH (10:33)
[2022-09-24] MEDS: SODIUM BICARBONATE 650 MG TABLET PO SCH ×2 (10:33→22:52)
[2022-09-24] MEDS: METOPROLOL TARTRATE 50 MG TABLET (FP) PO SCH ×2 (10:33→22:51)
[2022-09-24] MEDS: FUROSEMIDE 40 MG TABLET (FP) PO SCH (10:34)
[2022-09-24] MEDS: LACTULOSE 20 GM/30 ML UDC (FOR ORAL USE ONLY) PO SCH ×4 (10:35→22:54)
[2022-09-24] MEDS: TRIAMCINOLONE ACET 0.1% CREAM 15 GM TUBE TP SCH (10:36)
[2022-09-24] MEDS: MINERAL OIL/PETROLAT/WATER TOPICAL CREAM 454 GM JAR TP SCH (10:38)
[2022-09-24] MEDS: PANTOPRAZOLE 40 MG TABLET PO SCH (10:38)
[2022-09-24] MEDS: dilTIAZem HCL 30 MG TABLET PO SCH (10:50)
[2022-09-24] MEDS ORDERED: ENOXAPARIN NA (PORCINE) 60 MG/0.6 ML DISP.SYRIN SQ SCH (22:00)
[2022-09-25] MEDS: dilTIAZem HCL 30 MG TABLET PO SCH ×3 (02:36→22:43)
[2022-09-25] MEDS: ENOXAPARIN NA (PORCINE) 60 MG/0.6 ML DISP.SYRIN SQ SCH ×2 (02:37→10:19)
[2022-09-25] MEDS: LEVOTHYROXINE NA 75 MCG TABLET (FP) PO SCH (06:04)
[2022-09-25] MEDS: SODIUM BICARBONATE 650 MG TABLET PO SCH ×2 (12:10→22:44)
[2022-09-25] MEDS: PANTOPRAZOLE 40 MG TABLET PO SCH (12:10)
[2022-09-25] MEDS: LACTULOSE 20 GM/30 ML UDC (FOR ORAL USE ONLY) PO SCH ×4 (12:11→22:44)
[2022-09-25] MEDS: RIFAXIMIN 550 MG TABLET PO SCH ×2 (12:11→22:44)
[2022-09-25] MEDS: FUROSEMIDE 40 MG TABLET (FP) PO SCH (12:11)
[2022-09-25] MEDS: METOPROLOL TARTRATE 50 MG TABLET (FP) PO SCH ×2 (12:11→22:43)
[2022-09-25] MEDS: TRIAMCINOLONE ACET 0.1% CREAM 15 GM TUBE TP SCH (12:12)
[2022-09-25] MEDS: MINERAL OIL/PETROLAT/WATER TOPICAL CREAM 454 GM JAR TP SCH (12:12)
[2022-09-25 12:52] LABS: HEMATOCRIT 24.1 % (35.4-49); HEMOGLOBIN 7.9 GM/dL (11.7-16.9); MCH 29.5 pg (25.7-33.7); MCHC 32.6 g/dl (32.0-35.9); MEAN CELL VOLUME 90.6 fl (80-96); MEAN PLT VOLUME 8.6 fl (7.5-11.1); PLATELET COUNT 200 10^3/uL (134-434); RBC 2.66 M/mm3 (4.00-5.60); RDW 16.3 % (11.9-15.9); WHITE BLOOD COUNT 11.1 K/mm3 (4.0-10.0)
[2022-09-25 12:57] LABS: INR 1.99 (0.83-1.09); PROTHROMBIN TIME (PATIENT) 23.1 SEC (9.7-13.0)
[2022-09-25 13:16] LABS: CALCIUM 8.9 mg/dL (8.5-10.1)
[2022-09-25 13:17] LABS: ALBUMIN 2.8 g/dl (3.4-5.0); BLOOD UREA NITROGEN 88.3 mg/dL (7-18); MAGNESIUM 2.4 mg/dL (1.8-2.4)
[2022-09-25 13:20] LABS: CREATININE 2.9 mg/dL (0.55-1.3); PHOSPHOROUS 2.4 mg/dL (2.5-4.9)
[2022-09-25 13:21] LABS: BILIRUBIN,TOTAL 2.5 mg/dL (0.2-1); TOT PROT 6.1 g/dl (6.4-8.2)
[2022-09-25] MEDS ORDERED: NAPH,MB-DB/K PH,MBDB POWDER PACKET PO ONE (18:36)
[2022-09-26] MEDS: LEVOTHYROXINE NA 75 MCG TABLET (FP) PO SCH (06:47)
[2022-09-26] MEDS: RIFAXIMIN 550 MG TABLET PO SCH ×2 (11:35→22:38)
[2022-09-26] MEDS: LACTULOSE 20 GM/30 ML UDC (FOR ORAL USE ONLY) PO SCH ×4 (11:35→22:38)
[2022-09-26] MEDS: FUROSEMIDE 40 MG TABLET (FP) PO SCH (11:35)
[2022-09-26] MEDS: METOPROLOL TARTRATE 50 MG TABLET (FP) PO SCH ×3 (11:35→22:38)
[2022-09-26] MEDS: SIMETHICONE 80 MG TAB.CHEW (FP) PO PRN (11:36)
[2022-09-26] MEDS: PANTOPRAZOLE 40 MG TABLET PO SCH (11:36)
[2022-09-26] MEDS: dilTIAZem HCL 30 MG TABLET PO SCH ×2 (11:36→22:38)
[2022-09-26] MEDS: SODIUM BICARBONATE 650 MG TABLET PO SCH ×2 (11:36→22:39)
[2022-09-26 11:59] LABS: HEMATOCRIT 37.8 % (35.4-49); MCH 29.4 pg (25.7-33.7); MCHC 31.8 g/dl (32.0-35.9); MEAN CELL VOLUME 92.6 fl (80-96); MEAN PLT VOLUME 8.7 fl (7.5-11.1); PLATELET COUNT 184 10^3/uL (134-434); RBC 4.08 M/mm3 (4.00-5.60); RDW 16.6 % (11.9-15.9); WHITE BLOOD COUNT 6.7 K/mm3 (4.0-10.0)
[2022-09-26 12:10] LABS: INR 1.97 (0.83-1.09); PROTHROMBIN TIME (PATIENT) 22.8 SEC (9.7-13.0)
[2022-09-26 12:28] LABS: ALBUMIN 2.8 g/dl (3.4-5.0); CALCIUM 8.7 mg/dL (8.5-10.1); MAGNESIUM 2.5 mg/dL (1.8-2.4)
[2022-09-26 12:31] LABS: BILIRUBIN,DIRECT 0.9 mg/dL (0.0-0.2); CREATININE 2.8 mg/dL (0.55-1.3)
[2022-09-26 12:32] LABS: BILIRUBIN,TOTAL 2.6 mg/dL (0.2-1); PHOSPHOROUS 2.8 mg/dL (2.5-4.9)
[2022-09-26 12:33] LABS: TOT PROT 6.1 g/dl (6.4-8.2)
[2022-09-26] MEDS ORDERED: ALBUMIN HUMAN 25% 12.5 GM/50 ML VIAL IV ONE (14:06)
[2022-09-26] MEDS: MINERAL OIL/PETROLAT/WATER TOPICAL CREAM 454 GM JAR TP SCH (15:02)
[2022-09-26] MEDS: TRIAMCINOLONE ACET 0.1% CREAM 15 GM TUBE TP SCH (15:02)
[2022-09-27] MEDS: LEVOTHYROXINE NA 75 MCG TABLET (FP) PO SCH (06:01)
[2022-09-27 09:20] LABS: HEMATOCRIT 27.6 % (35.4-49); HEMOGLOBIN 8.9 GM/dL (11.7-16.9); MCH 29.3 pg (25.7-33.7); MCHC 32.4 g/dl (32.0-35.9); MEAN CELL VOLUME 90.3 fl (80-96); MEAN PLT VOLUME 8.1 fl (7.5-11.1); PLATELET COUNT 191 10^3/uL (134-434); RBC 3.05 M/mm3 (4.00-5.60); RDW 16.4 % (11.9-15.9); WHITE BLOOD COUNT 7.8 K/mm3 (4.0-10.0)
[2022-09-27 09:27] LABS: INR 2.06 (0.83-1.09); PROTHROMBIN TIME (PATIENT) 23.9 SEC (9.7-13.0)
[2022-09-27 09:44] LABS: CALCIUM 8.5 mg/dL (8.5-10.1)
[2022-09-27 09:45] LABS: ALBUMIN 2.5 g/dl (3.4-5.0); MAGNESIUM 2.3 mg/dL (1.8-2.4)
[2022-09-27 09:48] LABS: CREATININE 2.7 mg/dL (0.55-1.3); PHOSPHOROUS 2.3 mg/dL (2.5-4.9)
[2022-09-27 09:49] LABS: BILIRUBIN,TOTAL 1.8 mg/dL (0.2-1); TOT PROT 5.7 g/dl (6.4-8.2)
[2022-09-27] MEDS: SODIUM BICARBONATE 650 MG TABLET PO SCH ×2 (12:32→21:38)
[2022-09-27] MEDS: PANTOPRAZOLE 40 MG TABLET PO SCH (12:32)
[2022-09-27] MEDS: LACTULOSE 20 GM/30 ML UDC (FOR ORAL USE ONLY) PO SCH ×4 (12:32→21:38)
[2022-09-27] MEDS: RIFAXIMIN 550 MG TABLET PO SCH ×2 (12:32→21:38)
[2022-09-27] MEDS: METOPROLOL TARTRATE 50 MG TABLET (FP) PO SCH ×2 (12:40→21:39)
[2022-09-27] MEDS: FUROSEMIDE 40 MG TABLET (FP) PO SCH (12:40)
[2022-09-27] MEDS: dilTIAZem HCL 30 MG TABLET PO SCH ×2 (12:40→21:38)
[2022-09-27] MEDS ORDERED: traMADol HCL 50 MG TABLET PO ONE (12:44)
[2022-09-27] MEDS: TRIAMCINOLONE ACET 0.1% CREAM 15 GM TUBE TP SCH (14:07)
[2022-09-27] MEDS: MINERAL OIL/PETROLAT/WATER TOPICAL CREAM 454 GM JAR TP SCH (14:07)
[2022-09-28] MEDS: LEVOTHYROXINE NA 75 MCG TABLET (FP) PO SCH (06:00)
[2022-09-28] MEDS: LACTULOSE 20 GM/30 ML UDC (FOR ORAL USE ONLY) PO SCH ×5 (09:17→22:08)
[2022-09-28] MEDS: dilTIAZem HCL 30 MG TABLET PO SCH ×3 (09:17→22:08)
[2022-09-28] MEDS: METOPROLOL TARTRATE 50 MG TABLET (FP) PO SCH ×2 (09:20→22:08)
[2022-09-28] MEDS: MINERAL OIL/PETROLAT/WATER TOPICAL CREAM 454 GM JAR TP SCH (09:20)
[2022-09-28] MEDS: FUROSEMIDE 40 MG TABLET (FP) PO SCH (09:20)
[2022-09-28] MEDS: PANTOPRAZOLE 40 MG TABLET PO SCH ×2 (09:26→10:02)
[2022-09-28] MEDS: SODIUM BICARBONATE 650 MG TABLET PO SCH ×3 (09:27→22:10)
[2022-09-28] MEDS: RIFAXIMIN 550 MG TABLET PO SCH ×3 (09:27→22:10)
[2022-09-28 11:22] LABS: HEMATOCRIT 27.7 % (35.4-49); HEMOGLOBIN 8.9 GM/dL (11.7-16.9); MCHC 32.1 g/dl (32.0-35.9); MEAN CELL VOLUME 90.4 fl (80-96); MEAN PLT VOLUME 7.7 fl (7.5-11.1); PLATELET COUNT 196 10^3/uL (134-434); RBC 3.07 M/mm3 (4.00-5.60); RDW 16.8 % (11.9-15.9); WHITE BLOOD COUNT 8.4 K/mm3 (4.0-10.0)
[2022-09-28 11:57] LABS: ALBUMIN 2.4 g/dl (3.4-5.0); BLOOD UREA NITROGEN 88.8 mg/dL (7-18); CALCIUM 8.9 mg/dL (8.5-10.1); MAGNESIUM 2.4 mg/dL (1.8-2.4)
[2022-09-28 12:00] LABS: CREATININE 2.8 mg/dL (0.55-1.3); PHOSPHOROUS 2.3 mg/dL (2.5-4.9)
[2022-09-28 12:02] LABS: TOT PROT 5.4 g/dl (6.4-8.2)
[2022-09-28] MEDS ORDERED: ACETAMINOPHEN 1000 MG/100 ML BAG IVPB PRN (12:47)
[2022-09-28] MEDS ORDERED: POTASSIUM PHOSPHATE 20 MM in SODIUM CHLORIDE 250 ML IVPB ONE (14:00)
[2022-09-28] MEDS: SODIUM CHLORIDE 1,000 ML IV SCH (15:24)
[2022-09-28] MEDS: TRIAMCINOLONE ACET 0.1% CREAM 15 GM TUBE TP SCH (15:24)
[2022-09-28] MEDS: ACETAMINOPHEN 1000 MG/100 ML BAG IVPB PRN (18:19)
[2022-09-29] MEDS: SODIUM CHLORIDE 1,000 ML IV SCH ×3 (03:45→17:30)
[2022-09-29] MEDS: LEVOTHYROXINE NA 75 MCG TABLET (FP) PO SCH (06:35)
[2022-09-29] MEDS: RIFAXIMIN 550 MG TABLET PO SCH ×2 (10:17→23:15)
[2022-09-29] MEDS: SODIUM BICARBONATE 650 MG TABLET PO SCH ×2 (10:17→23:16)
[2022-09-29] MEDS: PANTOPRAZOLE 40 MG TABLET PO SCH (10:17)
[2022-09-29] MEDS: METOPROLOL TARTRATE 50 MG TABLET (FP) PO SCH ×2 (10:17→23:16)
[2022-09-29] MEDS: TRIAMCINOLONE ACET 0.1% CREAM 15 GM TUBE TP SCH (10:18)
[2022-09-29] MEDS: LACTULOSE 20 GM/30 ML UDC (FOR ORAL USE ONLY) PO SCH ×4 (10:18→23:16)
[2022-09-29] MEDS: ACETAMINOPHEN 1000 MG/100 ML BAG IVPB PRN (10:18)
[2022-09-29] MEDS: dilTIAZem HCL 30 MG TABLET PO SCH ×2 (10:18→23:15)
[2022-09-29] MEDS: MINERAL OIL/PETROLAT/WATER TOPICAL CREAM 454 GM JAR TP SCH (10:18)
[2022-09-29] MEDS: predniSONE 10 MG TABLET (UD) PO SCH (11:45)
[2022-09-29 12:23] LABS: HEMATOCRIT 28.1 % (35.4-49); HEMOGLOBIN 8.9 GM/dL (11.7-16.9); MCH 28.9 pg (25.7-33.7); MCHC 31.7 g/dl (32.0-35.9); MEAN CELL VOLUME 91.4 fl (80-96); MEAN PLT VOLUME 7.8 fl (7.5-11.1); PLATELET COUNT 213 10^3/uL (134-434); RBC 3.08 M/mm3 (4.00-5.60); RDW 17.2 % (11.9-15.9); WHITE BLOOD COUNT 8.2 K/mm3 (4.0-10.0)
[2022-09-29 12:48] LABS: BLOOD UREA NITROGEN 80.4 mg/dL (7-18)
[2022-09-29 12:50] LABS: CALCIUM 8.6 mg/dL (8.5-10.1)
[2022-09-29 12:51] LABS: ALBUMIN 2.2 g/dl (3.4-5.0); CREATININE 2.5 mg/dL (0.55-1.3); MAGNESIUM 2.3 mg/dL (1.8-2.4); PHOSPHOROUS 3.2 mg/dL (2.5-4.9)
[2022-09-29 12:52] LABS: TOT PROT 5.2 g/dl (6.4-8.2)
[2022-09-29] MEDS ORDERED: traMADol HCL 50 MG TABLET PO ONE (16:45)
[2022-09-30] MEDS: LEVOTHYROXINE NA 75 MCG TABLET (FP) PO SCH (06:12)
[2022-09-30] MEDS: SODIUM CHLORIDE 1,000 ML IV SCH ×4 (06:12→17:11)
[2022-09-30] MEDS: SODIUM BICARBONATE 650 MG TABLET PO SCH ×2 (09:00→22:45)
[2022-09-30] MEDS: RIFAXIMIN 550 MG TABLET PO SCH ×2 (09:00→22:45)
[2022-09-30] MEDS: dilTIAZem HCL 30 MG TABLET PO SCH (09:02)
[2022-09-30] MEDS: PANTOPRAZOLE 40 MG TABLET PO SCH (09:02)
[2022-09-30] MEDS: predniSONE 10 MG TABLET (UD) PO SCH (09:02)
[2022-09-30] MEDS: METOPROLOL TARTRATE 50 MG TABLET (FP) PO SCH (09:04)
[2022-09-30] MEDS: LACTULOSE 20 GM/30 ML UDC (FOR ORAL USE ONLY) PO SCH ×4 (09:06→22:45)
[2022-09-30 10:55] LABS: HEMATOCRIT 28.3 % (35.4-49); HEMOGLOBIN 9.1 GM/dL (11.7-16.9); MCH 29.4 pg (25.7-33.7); MEAN CELL VOLUME 91.9 fl (80-96); PLATELET COUNT 237 10^3/uL (134-434); RBC 3.08 M/mm3 (4.00-5.60); RDW 17.2 % (11.9-15.9); WHITE BLOOD COUNT 9.7 K/mm3 (4.0-10.0)
[2022-09-30 11:16] LABS: CALCIUM 8.6 mg/dL (8.5-10.1)
[2022-09-30 11:17] LABS: ALBUMIN 2.1 g/dl (3.4-5.0); BLOOD UREA NITROGEN 76.6 mg/dL (7-18); MAGNESIUM 2.2 mg/dL (1.8-2.4)
[2022-09-30 11:20] LABS: CREATININE 2.5 mg/dL (0.55-1.3); PHOSPHOROUS 3.4 mg/dL (2.5-4.9)
[2022-09-30 11:21] LABS: BILIRUBIN,TOTAL 1.7 mg/dL (0.2-1); TOT PROT 5.2 g/dl (6.4-8.2)
[2022-09-30] MEDS: TRIAMCINOLONE ACET 0.1% CREAM 15 GM TUBE TP SCH (13:17)
[2022-09-30] MEDS: MINERAL OIL/PETROLAT/WATER TOPICAL CREAM 454 GM JAR TP SCH (13:17)
[2022-09-30] MEDS ORDERED: SODIUM CHLORIDE 500 ML IV STA (13:29)
[2022-09-30] MEDS ORDERED: CALCIUM GLUCONATE IN NACL 1 GM/50 ML BAG IVPB ONE (15:09)
[2022-09-30] MEDS ORDERED: SODIUM CHLORIDE 250 ML IV STA (15:12)
[2022-09-30] MEDS ORDERED: traMADol HCL 50 MG TABLET PO ONE (16:15)
[2022-10-01] MEDS: SODIUM CHLORIDE 1,000 ML IV SCH ×2 (05:03→15:26)
[2022-10-01] MEDS: LEVOTHYROXINE NA 75 MCG TABLET (FP) PO SCH (06:01)
[2022-10-01] MEDS: LACTULOSE 20 GM/30 ML UDC (FOR ORAL USE ONLY) PO SCH ×6 (10:51→21:20)
[2022-10-01] MEDS: RIFAXIMIN 550 MG TABLET PO SCH ×3 (10:51→21:20)
[2022-10-01] MEDS: predniSONE 10 MG TABLET (UD) PO SCH (10:51)
[2022-10-01] MEDS: SODIUM BICARBONATE 650 MG TABLET PO SCH ×3 (10:51→21:20)
[2022-10-01] MEDS: PANTOPRAZOLE 40 MG TABLET PO SCH ×2 (10:51→11:14)
[2022-10-01] MEDS: MINERAL OIL/PETROLAT/WATER TOPICAL CREAM 454 GM JAR TP SCH (11:14)
[2022-10-01] MEDS: TRIAMCINOLONE ACET 0.1% CREAM 15 GM TUBE TP SCH (14:10)
[2022-10-01] MEDS ORDERED: SODIUM CHLORIDE 250 ML IV STA (18:14)
[2022-10-02] MEDS: SODIUM CHLORIDE 1,000 ML IV SCH (01:51)
[2022-10-02] MEDS ORDERED: BACITRACIN 15 GM TUBE TOPICAL OINTMENT TP SCH ×2 (03:00→10:00)
[2022-10-02] MEDS: LEVOTHYROXINE NA 75 MCG TABLET (FP) PO SCH (06:44)
[2022-10-02] MEDS ORDERED: FUROSEMIDE 40 MG/4 ML INJECTABLE VIAL IVPUSH ONE ×2 (08:31)
[2022-10-02 08:35] LABS: CALCIUM 8.9 mg/dL (8.5-10.1)
[2022-10-02 08:36] LABS: ALBUMIN 2.3 g/dl (3.4-5.0); BLOOD UREA NITROGEN 85.9 mg/dL (7-18); MAGNESIUM 2.2 mg/dL (1.8-2.4)
[2022-10-02] MEDS ORDERED: ACETAMINOPHEN 1000 MG/100 ML BAG IVPB ONE (08:36)
[2022-10-02 08:39] LABS: CREATININE 3.2 mg/dL (0.55-1.3)
[2022-10-02 08:40] LABS: TOT PROT 5.7 g/dl (6.4-8.2)
[2022-10-02 08:41] LABS: BILIRUBIN,TOTAL 1.6 mg/dL (0.2-1)
[2022-10-02] MEDS: PANTOPRAZOLE 40 MG TABLET PO SCH (09:48)
[2022-10-02] MEDS: SODIUM BICARBONATE 650 MG TABLET PO SCH ×2 (09:48→21:19)
[2022-10-02] MEDS: predniSONE 10 MG TABLET (UD) PO SCH (09:48)
[2022-10-02] MEDS: LACTULOSE 20 GM/30 ML UDC (FOR ORAL USE ONLY) PO SCH ×3 (09:48→21:19)
[2022-10-02] MEDS: TRIAMCINOLONE ACET 0.1% CREAM 15 GM TUBE TP SCH (11:05)
[2022-10-02] MEDS: RIFAXIMIN 550 MG TABLET PO SCH ×2 (11:05→21:19)
[2022-10-02] MEDS: MINERAL OIL/PETROLAT/WATER TOPICAL CREAM 454 GM JAR TP SCH (14:21)
[2022-10-02] MEDS ORDERED: SIMETHICONE 80 MG TAB.CHEW (FP) PO PRN (19:50)
[2022-10-02] MEDS ORDERED: ALBUMIN HUMAN 25% 12.5 GM/50 ML VIAL IV ONE (19:50)
[2022-10-02] MEDS ORDERED: SODIUM CHLORIDE NASAL SPRAY 44 ML BOTTLE NS PRN (19:50)
[2022-10-03] MEDS: LEVOTHYROXINE NA 75 MCG TABLET (FP) PO SCH (06:22)
[2022-10-03 08:13] LABS: HEMATOCRIT 29.4 % (35.4-49); HEMOGLOBIN 9.4 GM/dL (11.7-16.9); MCHC 31.8 g/dl (32.0-35.9); MEAN CELL VOLUME 91.2 fl (80-96); MEAN PLT VOLUME 8.2 fl (7.5-11.1); PLATELET COUNT 298 10^3/uL (134-434); RBC 3.23 M/mm3 (4.00-5.60); RDW 17.4 % (11.9-15.9); WHITE BLOOD COUNT 8.1 K/mm3 (4.0-10.0)
[2022-10-03 08:18] LABS: INR 1.44 (0.83-1.09); PROTHROMBIN TIME (PATIENT) 16.6 SEC (9.7-13.0)
[2022-10-03 08:37] LABS: ALBUMIN 2.2 g/dl (3.4-5.0); BLOOD UREA NITROGEN 90.6 mg/dL (7-18); CALCIUM 9.1 mg/dL (8.5-10.1); MAGNESIUM 2.2 mg/dL (1.8-2.4)
[2022-10-03 08:40] LABS: CREATININE 3.3 mg/dL (0.55-1.3); PHOSPHOROUS 4.1 mg/dL (2.5-4.9)
[2022-10-03 08:42] LABS: BILIRUBIN,TOTAL 2.2 mg/dL (0.2-1); TOT PROT 5.5 g/dl (6.4-8.2)
[2022-10-03] MEDS ORDERED: predniSONE 10 MG TABLET (UD) PO SCH (10:00)
[2022-10-03] MEDS: LACTULOSE 20 GM/30 ML UDC (FOR ORAL USE ONLY) PO SCH ×4 (10:07→21:14)
[2022-10-03] MEDS: PANTOPRAZOLE 40 MG TABLET PO SCH (10:07)
[2022-10-03] MEDS: RIFAXIMIN 550 MG TABLET PO SCH ×2 (10:07→21:15)
[2022-10-03] MEDS: SODIUM BICARBONATE 650 MG TABLET PO SCH ×2 (10:07→21:15)
[2022-10-03] MEDS: MIDODRINE HCL 5 MG TABLET PO SCH ×4 (10:08→17:58)
[2022-10-03] MEDS: BACITRACIN 15 GM TUBE TOPICAL OINTMENT TP SCH (11:53)
[2022-10-03] MEDS: MINERAL OIL/PETROLAT/WATER TOPICAL CREAM 454 GM JAR TP SCH (13:04)
[2022-10-03] MEDS: TRIAMCINOLONE ACET 0.1% CREAM 15 GM TUBE TP SCH (13:05)
[2022-10-03] MEDS: ALBUMIN HUMAN 25% 100 ML VIAL IV SCH ×2 (17:49→20:49)
[2022-10-04] MEDS: LEVOTHYROXINE NA 75 MCG TABLET (FP) PO SCH (06:12)
[2022-10-04 09:13] LABS: HEMATOCRIT 32.4 % (35.4-49); HEMOGLOBIN 10.2 GM/dL (11.7-16.9); MCH 28.9 pg (25.7-33.7); MCHC 31.5 g/dl (32.0-35.9); MEAN CELL VOLUME 91.7 fl (80-96); MEAN PLT VOLUME 8.4 fl (7.5-11.1); PLATELET COUNT 363 10^3/uL (134-434); RBC 3.53 M/mm3 (4.00-5.60); RDW 17.1 % (11.9-15.9); WHITE BLOOD COUNT 10.4 K/mm3 (4.0-10.0)
[2022-10-04 09:50] LABS: BLOOD UREA NITROGEN 89.6 mg/dL (7-18); MAGNESIUM 2.3 mg/dL (1.8-2.4)
[2022-10-04 09:52] LABS: CREATININE 3.4 mg/dL (0.55-1.3); PHOSPHOROUS 4.6 mg/dL (2.5-4.9)
[2022-10-04 09:55] LABS: BILIRUBIN,TOTAL 2.1 mg/dL (0.2-1); TOT PROT 5.9 g/dl (6.4-8.2)
[2022-10-04 09:56] LABS: CALCIUM 9.5 mg/dL (8.5-10.1)
[2022-10-04 10:01] LABS: ALBUMIN 2.7 g/dl (3.4-5.0)
[2022-10-04] MEDS: SODIUM BICARBONATE 650 MG TABLET PO SCH ×2 (11:09→21:17)
[2022-10-04] MEDS: RIFAXIMIN 550 MG TABLET PO SCH ×2 (11:09→21:17)
[2022-10-04] MEDS: PANTOPRAZOLE 40 MG TABLET PO SCH (11:09)
[2022-10-04] MEDS: MINERAL OIL/PETROLAT/WATER TOPICAL CREAM 454 GM JAR TP SCH (11:09)
[2022-10-04] MEDS: MIDODRINE HCL 5 MG TABLET PO SCH ×3 (11:09→18:28)
[2022-10-04] MEDS: LACTULOSE 20 GM/30 ML UDC (FOR ORAL USE ONLY) PO SCH ×3 (11:09→21:16)
[2022-10-04] MEDS: TRIAMCINOLONE ACET 0.1% CREAM 15 GM TUBE TP SCH (11:10)
[2022-10-04] MEDS: BACITRACIN 15 GM TUBE TOPICAL OINTMENT TP SCH (11:10)
[2022-10-04] MEDS: AMIODARONE HCL 200 MG TABLET PO SCH ×2 (18:27→21:17)
[2022-10-05] MEDS: LEVOTHYROXINE NA 75 MCG TABLET (FP) PO SCH (06:12)
[2022-10-05 08:06] LABS: BASO % 0.1 % (0-2.0); EOS % 1.9 % (0-4.5); HEMATOCRIT 31.1 % (35.4-49); LYMPH % 2.7 % (8-40); MCH 29.2 pg (25.7-33.7); MEAN CELL VOLUME 91.3 fl (80-96); MEAN PLT VOLUME 8.5 fl (7.5-11.1); MONO % 7.2 % (3.8-10.2); NEUT % 88.1 % (42.8-82.8); PLATELET COUNT 384 10^3/uL (134-434); RBC 3.41 M/mm3 (4.00-5.60); RDW 17.6 % (11.9-15.9); WHITE BLOOD COUNT 9.9 K/mm3 (4.0-10.0)
[2022-10-05 08:27] LABS: ALBUMIN 2.6 g/dl (3.4-5.0); BLOOD UREA NITROGEN 95.3 mg/dL (7-18); CALCIUM 9.6 mg/dL (8.5-10.1); MAGNESIUM 2.3 mg/dL (1.8-2.4)
[2022-10-05 08:31] LABS: CREATININE 3.5 mg/dL (0.55-1.3); PHOSPHOROUS 3.6 mg/dL (2.5-4.9)
[2022-10-05 08:33] LABS: BILIRUBIN,TOTAL 1.8 mg/dL (0.2-1); TOT PROT 5.8 g/dl (6.4-8.2)
[2022-10-05] MEDS: BACITRACIN 15 GM TUBE TOPICAL OINTMENT TP SCH (10:24)
[2022-10-05] MEDS: TRIAMCINOLONE ACET 0.1% CREAM 15 GM TUBE TP SCH (10:24)
[2022-10-05] MEDS: MINERAL OIL/PETROLAT/WATER TOPICAL CREAM 454 GM JAR TP SCH (10:25)
[2022-10-05] MEDS: AMIODARONE HCL 200 MG TABLET PO SCH ×2 (10:25→22:29)
[2022-10-05] MEDS: LACTULOSE 20 GM/30 ML UDC (FOR ORAL USE ONLY) PO SCH ×2 (10:25→22:29)
[2022-10-05] MEDS: RIFAXIMIN 550 MG TABLET PO SCH ×2 (10:26→22:29)
[2022-10-05] MEDS: SODIUM BICARBONATE 650 MG TABLET PO SCH ×2 (10:26→22:29)
[2022-10-05] MEDS: PANTOPRAZOLE 40 MG TABLET PO SCH (10:26)
[2022-10-05] MEDS: MIDODRINE HCL 5 MG TABLET PO SCH ×3 (10:26→18:27)
[2022-10-06] MEDS: LEVOTHYROXINE NA 75 MCG TABLET (FP) PO SCH (06:21)
[2022-10-06 07:20] LABS: HEMATOCRIT 32.6 % (35.4-49); HEMOGLOBIN 10.1 GM/dL (11.7-16.9); MCH 28.5 pg (25.7-33.7); MEAN CELL VOLUME 91.9 fl (80-96); MEAN PLT VOLUME 8.1 fl (7.5-11.1); PLATELET COUNT 318 10^3/uL (134-434); RBC 3.54 M/mm3 (4.00-5.60); RDW 17.5 % (11.9-15.9); WHITE BLOOD COUNT 11.2 K/mm3 (4.0-10.0)
[2022-10-06 07:56] LABS: CALCIUM 9.7 mg/dL (8.5-10.1)
[2022-10-06 07:58] LABS: ALBUMIN 2.6 g/dl (3.4-5.0); BLOOD UREA NITROGEN 91.8 mg/dL (7-18)
[2022-10-06 07:59] LABS: CREATININE 3.5 mg/dL (0.55-1.3); MAGNESIUM 2.4 mg/dL (1.8-2.4); PHOSPHOROUS 3.6 mg/dL (2.5-4.9)
[2022-10-06 08:02] LABS: TOT PROT 5.8 g/dl (6.4-8.2)
[2022-10-06] MEDS: AMIODARONE HCL 200 MG TABLET PO SCH ×2 (09:37→21:47)
[2022-10-06] MEDS: LACTULOSE 20 GM/30 ML UDC (FOR ORAL USE ONLY) PO SCH ×2 (09:37→21:48)
[2022-10-06] MEDS: MINERAL OIL/PETROLAT/WATER TOPICAL CREAM 454 GM JAR TP SCH (09:37)
[2022-10-06] MEDS: PANTOPRAZOLE 40 MG TABLET PO SCH (09:38)
[2022-10-06] MEDS: BACITRACIN 15 GM TUBE TOPICAL OINTMENT TP SCH (09:38)
[2022-10-06] MEDS: TRIAMCINOLONE ACET 0.1% CREAM 15 GM TUBE TP SCH (09:38)
[2022-10-06] MEDS: SODIUM BICARBONATE 650 MG TABLET PO SCH (09:39)
[2022-10-06] MEDS: RIFAXIMIN 550 MG TABLET PO SCH ×2 (09:39→21:48)
[2022-10-06] MEDS: MIDODRINE HCL 5 MG TABLET PO SCH ×3 (09:39→18:38)
[2022-10-06] MEDS ORDERED: APIXABAN 2.5 MG TABLET PO SCH (10:00)
[2022-10-06] MEDS ORDERED: AMINO ACIDS 4.25%/D5W 1,000 ML IV SCH (11:30)
[2022-10-06] MEDS: APIXABAN 2.5 MG TABLET PO SCH (21:48)
[2022-10-07] MEDS: LEVOTHYROXINE NA 75 MCG TABLET (FP) PO SCH (07:09)
[2022-10-07] MEDS ORDERED: SODIUM CHLORIDE 500 ML IV STA (09:13)
[2022-10-07] MEDS: PANTOPRAZOLE 40 MG TABLET PO SCH (10:43)
[2022-10-07] MEDS: MINERAL OIL/PETROLAT/WATER TOPICAL CREAM 454 GM JAR TP SCH (10:44)
[2022-10-07] MEDS: AMIODARONE HCL 200 MG TABLET PO SCH ×2 (10:44→23:07)
[2022-10-07] MEDS: BACITRACIN 15 GM TUBE TOPICAL OINTMENT TP SCH (10:44)
[2022-10-07] MEDS: TRIAMCINOLONE ACET 0.1% CREAM 15 GM TUBE TP SCH (10:44)
[2022-10-07] MEDS: APIXABAN 2.5 MG TABLET PO SCH ×2 (10:44→23:07)
[2022-10-07] MEDS: LACTULOSE 20 GM/30 ML UDC (FOR ORAL USE ONLY) PO SCH ×2 (10:44→23:07)
[2022-10-07] MEDS: RIFAXIMIN 550 MG TABLET PO SCH ×2 (10:44→23:07)
[2022-10-07] MEDS: MIDODRINE HCL 5 MG TABLET PO SCH ×3 (10:44→17:56)
[2022-10-07] MEDS: AMINO ACIDS 4.25%/D5W 1,000 ML IV SCH ×2 (12:00→23:07)
[2022-10-07] MEDS ORDERED: ACETAMINOPHEN 1000 MG/100 ML BAG IVPB STA (16:21)
[2022-10-07] MEDS ORDERED: CEFAZOLIN 1 GM in DEXTROSE 5%-WATER - 50 ML IVPB ONE (17:25)
[2022-10-07] MEDS: methylPREDNISolone NA SUCC 40 MG/1 ML VIAL IVPUSH SCH (23:07)
[2022-10-08] MEDS: CEFAZOLIN 1 GM in DEXTROSE 5%-WATER - 50 ML IVPB SCH ×2 (05:18→17:49)
[2022-10-08] MEDS: LEVOTHYROXINE NA 75 MCG TABLET (FP) PO SCH (06:47)
[2022-10-08 07:50] LABS: HEMATOCRIT 32.8 % (35.4-49); HEMOGLOBIN 10.2 GM/dL (11.7-16.9); MCH 28.6 pg (25.7-33.7); MCHC 31.1 g/dl (32.0-35.9); MEAN CELL VOLUME 91.9 fl (80-96); MEAN PLT VOLUME 8.1 fl (7.5-11.1); PLATELET COUNT 309 10^3/uL (134-434); RBC 3.57 M/mm3 (4.00-5.60); RDW 18.2 % (11.9-15.9); WHITE BLOOD COUNT 9.6 K/mm3 (4.0-10.0)
[2022-10-08 07:58] LABS: BLOOD UREA NITROGEN 82.6 mg/dL (7-18); CALCIUM 9.1 mg/dL (8.5-10.1)
[2022-10-08 07:59] LABS: ALBUMIN 2.3 g/dl (3.4-5.0); MAGNESIUM 2.1 mg/dL (1.8-2.4)
[2022-10-08 08:01] LABS: PHOSPHOROUS 2.8 mg/dL (2.5-4.9)
[2022-10-08 08:02] LABS: CREATININE 3.2 mg/dL (0.55-1.3)
[2022-10-08 08:03] LABS: BILIRUBIN,TOTAL 1.7 mg/dL (0.2-1); TOT PROT 5.6 g/dl (6.4-8.2)
[2022-10-08] MEDS: TRIAMCINOLONE ACET 0.1% CREAM 15 GM TUBE TP SCH (09:48)
[2022-10-08] MEDS: LACTULOSE 20 GM/30 ML UDC (FOR ORAL USE ONLY) PO SCH ×2 (09:48→22:29)
[2022-10-08] MEDS: AMIODARONE HCL 200 MG TABLET PO SCH ×2 (09:48→22:29)
[2022-10-08] MEDS: BACITRACIN 15 GM TUBE TOPICAL OINTMENT TP SCH (09:48)
[2022-10-08] MEDS: MIDODRINE HCL 5 MG TABLET PO SCH ×3 (09:48→17:49)
[2022-10-08] MEDS: APIXABAN 2.5 MG TABLET PO SCH ×2 (09:48→22:29)
[2022-10-08] MEDS: RIFAXIMIN 550 MG TABLET PO SCH ×2 (09:48→22:29)
[2022-10-08] MEDS: MINERAL OIL/PETROLAT/WATER TOPICAL CREAM 454 GM JAR TP SCH (09:48)
[2022-10-08] MEDS: PANTOPRAZOLE 40 MG TABLET PO SCH (09:48)
[2022-10-08] MEDS: methylPREDNISolone NA SUCC 40 MG/1 ML VIAL IVPUSH SCH (09:49)
[2022-10-08 10:14] LABS: ANISOCYTOSIS 0; HELMET CELLS 0; HOWELL-JOLLY BODIES 0; MACROCYTOSIS 0; OVALOCYTE 0; ROULEAU 0; SICKELED CELLS 0; TARGET CELLS 0; TEAR DROP CELLS 0; TOXIC GRANULATION 0
[2022-10-08] MEDS: AMINO ACIDS 4.25%/D5W 1,000 ML IV SCH (22:41)
[2022-10-09] MEDS: LEVOTHYROXINE NA 75 MCG TABLET (FP) PO SCH (06:24)
[2022-10-09] MEDS: CEFAZOLIN 1 GM in DEXTROSE 5%-WATER - 50 ML IVPB SCH ×2 (06:24→17:40)
[2022-10-09 07:47] LABS: HEMATOCRIT 32.3 % (35.4-49); HEMOGLOBIN 10.1 GM/dL (11.7-16.9); MCH 28.5 pg (25.7-33.7); MCHC 31.2 g/dl (32.0-35.9); MEAN CELL VOLUME 91.3 fl (80-96); MEAN PLT VOLUME 8.5 fl (7.5-11.1); PLATELET COUNT 350 10^3/uL (134-434); RBC 3.54 M/mm3 (4.00-5.60); WHITE BLOOD COUNT 13.2 K/mm3 (4.0-10.0)
[2022-10-09 08:20] LABS: CALCIUM 8.9 mg/dL (8.5-10.1)
[2022-10-09 08:21] LABS: ALBUMIN 2.2 g/dl (3.4-5.0); MAGNESIUM 2.1 mg/dL (1.8-2.4)
[2022-10-09 08:24] LABS: PHOSPHOROUS 2.6 mg/dL (2.5-4.9)
[2022-10-09 08:26] LABS: BILIRUBIN,TOTAL 1.2 mg/dL (0.2-1); TOT PROT 5.3 g/dl (6.4-8.2)
[2022-10-09] MEDS: APIXABAN 2.5 MG TABLET PO SCH ×2 (10:06→22:31)
[2022-10-09] MEDS: RIFAXIMIN 550 MG TABLET PO SCH ×2 (10:06→22:31)
[2022-10-09] MEDS: TRIAMCINOLONE ACET 0.1% CREAM 15 GM TUBE TP SCH (10:06)
[2022-10-09] MEDS: LACTULOSE 20 GM/30 ML UDC (FOR ORAL USE ONLY) PO SCH ×2 (10:06→22:31)
[2022-10-09] MEDS: AMIODARONE HCL 200 MG TABLET PO SCH ×2 (10:06→22:31)
[2022-10-09] MEDS: PANTOPRAZOLE 40 MG TABLET PO SCH (10:06)
[2022-10-09] MEDS: BACITRACIN 15 GM TUBE TOPICAL OINTMENT TP SCH (10:06)
[2022-10-09] MEDS: MIDODRINE HCL 5 MG TABLET PO SCH ×3 (10:06→19:40)
[2022-10-09] MEDS: MINERAL OIL/PETROLAT/WATER TOPICAL CREAM 454 GM JAR TP SCH (10:06)
[2022-10-09] MEDS: methylPREDNISolone NA SUCC 40 MG/1 ML VIAL IVPUSH SCH ×2 (10:25→22:31)
[2022-10-09] MEDS: AMINO ACIDS 4.25%/D5W 1,000 ML IV SCH (12:25)
[2022-10-09] MEDS: POTASSIUM CITRATE/CITRIC ACID 2 MEQ/ML ML PO SCH (13:32)
[2022-10-09] MEDS: traMADol HCL 50 MG TABLET PO PRN (13:32)
[2022-10-10] MEDS: CEFAZOLIN 1 GM in DEXTROSE 5%-WATER - 50 ML IVPB SCH ×2 (07:39→18:07)
[2022-10-10] MEDS: LEVOTHYROXINE NA 75 MCG TABLET (FP) PO SCH (07:39)
[2022-10-10] MEDS: BACITRACIN 15 GM TUBE TOPICAL OINTMENT TP SCH (10:01)
[2022-10-10] MEDS: LACTULOSE 20 GM/30 ML UDC (FOR ORAL USE ONLY) PO SCH ×2 (10:01→21:22)
[2022-10-10] MEDS: MINERAL OIL/PETROLAT/WATER TOPICAL CREAM 454 GM JAR TP SCH (10:08)
[2022-10-10] MEDS: RIFAXIMIN 550 MG TABLET PO SCH ×2 (10:09→21:23)
[2022-10-10] MEDS: methylPREDNISolone NA SUCC 40 MG/1 ML VIAL IVPUSH SCH (10:09)
[2022-10-10] MEDS: APIXABAN 2.5 MG TABLET PO SCH ×2 (10:09→21:24)
[2022-10-10] MEDS: AMIODARONE HCL 200 MG TABLET PO SCH ×2 (10:09→21:23)
[2022-10-10] MEDS: MIDODRINE HCL 5 MG TABLET PO SCH ×3 (10:09→18:08)
[2022-10-10] MEDS: PANTOPRAZOLE 40 MG TABLET PO SCH (10:09)
[2022-10-10] MEDS: POTASSIUM CITRATE/CITRIC ACID 2 MEQ/ML ML PO SCH (10:10)
[2022-10-10] MEDS: TRIAMCINOLONE ACET 0.1% CREAM 15 GM TUBE TP SCH (10:10)
[2022-10-10] MEDS: AMINO ACIDS 4.25%/D5W 1,000 ML IV SCH (18:48)
[2022-10-10] MEDS: traMADol HCL 50 MG TABLET PO PRN (21:23)
[2022-10-11] MEDS: CEFAZOLIN 1 GM in DEXTROSE 5%-WATER - 50 ML IVPB SCH (05:39)
[2022-10-11] MEDS: LEVOTHYROXINE NA 75 MCG TABLET (FP) PO SCH (06:03)
[2022-10-11 08:16] LABS: HEMATOCRIT 30.5 % (35.4-49); HEMOGLOBIN 9.7 GM/dL (11.7-16.9); MCH 28.6 pg (25.7-33.7); MCHC 31.7 g/dl (32.0-35.9); MEAN CELL VOLUME 90.3 fl (80-96); MEAN PLT VOLUME 8.4 fl (7.5-11.1); PLATELET COUNT 303 10^3/uL (134-434); RBC 3.38 M/mm3 (4.00-5.60); RDW 17.8 % (11.9-15.9)
[2022-10-11 08:24] LABS: CHLORIDE 110 mmol/L (98-107); SODIUM 140 mmol/L (136-145)
[2022-10-11 08:35] LABS: SGPT/ALT < 6 U/L (13-61)
[2022-10-11 08:36] LABS: ALBUMIN 2.2 g/dl (3.4-5.0); CALCIUM 8.8 mg/dL (8.5-10.1); GLUCOSE,RANDOM 175 mg/dL (74-106); PHOSPHOROUS 2.1 mg/dL (2.5-4.9); TOT PROT 5.4 g/dl (6.4-8.2)
[2022-10-11 08:37] LABS: ANION GAP 10 MMOL/L (8-16); BILIRUBIN,TOTAL 0.9 mg/dL (0.2-1); CO2 21 mmol/L (21-32); MAGNESIUM 2.3 mg/dL (1.8-2.4)
[2022-10-11 08:38] LABS: CREATININE 2.9 mg/dL (0.55-1.3); SGOT/AST 30 U/L (15-37)
[2022-10-11 08:42] LABS: ALK PHOS 225 U/L (45-117); BLOOD UREA NITROGEN 104.6 mg/dL (7-18)
[2022-10-11] MEDS: BACITRACIN 15 GM TUBE TOPICAL OINTMENT TP SCH (10:55)
[2022-10-11] MEDS: AMIODARONE HCL 200 MG TABLET PO SCH (10:56)
[2022-10-11] MEDS: APIXABAN 2.5 MG TABLET PO SCH ×2 (10:56→22:03)
[2022-10-11] MEDS: MIDODRINE HCL 5 MG TABLET PO SCH ×3 (10:56→17:53)
[2022-10-11] MEDS: LACTULOSE 20 GM/30 ML UDC (FOR ORAL USE ONLY) PO SCH ×2 (10:56→22:03)
[2022-10-11] MEDS: PANTOPRAZOLE 40 MG TABLET PO SCH (10:57)
[2022-10-11] MEDS: RIFAXIMIN 550 MG TABLET PO SCH ×2 (10:57→22:03)
[2022-10-11] MEDS: AMINO ACIDS 4.25%/D5W 1,000 ML IV SCH (10:59)
[2022-10-11] MEDS: TRIAMCINOLONE ACET 0.1% CREAM 15 GM TUBE TP SCH (11:20)
[2022-10-11] MEDS: MINERAL OIL/PETROLAT/WATER TOPICAL CREAM 454 GM JAR TP SCH (11:20)
[2022-10-11] MEDS: traMADol HCL 50 MG TABLET PO PRN (16:43)
[2022-10-11] MEDS: LIDOCAINE 5% TOPICAL PATCH TP SCH (18:15)
[2022-10-11] MEDS: LIDOCAINE PATCH REMOVAL MC SCH (22:03)
[2022-10-12] MEDS: LEVOTHYROXINE NA 75 MCG TABLET (FP) PO SCH (06:23)
[2022-10-12 07:50] LABS: HEMATOCRIT 30.1 % (35.4-49); HEMOGLOBIN 9.7 GM/dL (11.7-16.9); MCH 29.3 pg (25.7-33.7); MCHC 32.3 g/dl (32.0-35.9); MEAN CELL VOLUME 90.6 fl (80-96); MEAN PLT VOLUME 8.4 fl (7.5-11.1); PLATELET COUNT 319 10^3/uL (134-434); RBC 3.32 M/mm3 (4.00-5.60); RDW 17.9 % (11.9-15.9)
[2022-10-12 08:15] LABS: CHLORIDE 109 mmol/L (98-107); SODIUM 141 mmol/L (136-145)
[2022-10-12 09:23] LABS: ALBUMIN 2.4 g/dl (3.4-5.0); ALK PHOS 246 U/L (45-117); ANION GAP 11 MMOL/L (8-16); BILIRUBIN,TOTAL 1.1 mg/dL (0.2-1); CALCIUM 9.1 mg/dL (8.5-10.1); CO2 21 mmol/L (21-32); GLUCOSE,RANDOM 119 mg/dL (74-106); SGOT/AST 39 U/L (15-37); SGPT/ALT 7 U/L (13-61); TOT PROT 5.8 g/dl (6.4-8.2)
[2022-10-12 09:35] LABS: BLOOD UREA NITROGEN 117.1 mg/dL (7-18)
[2022-10-12] MEDS: LACTULOSE 20 GM/30 ML UDC (FOR ORAL USE ONLY) PO SCH ×2 (10:05→22:33)
[2022-10-12] MEDS: PANTOPRAZOLE 40 MG TABLET PO SCH (10:05)
[2022-10-12] MEDS: RIFAXIMIN 550 MG TABLET PO SCH ×2 (10:06→22:33)
[2022-10-12] MEDS: TRIAMCINOLONE ACET 0.1% CREAM 15 GM TUBE TP SCH (10:06)
[2022-10-12] MEDS: APIXABAN 2.5 MG TABLET PO SCH ×2 (10:06→22:33)
[2022-10-12] MEDS: MIDODRINE HCL 5 MG TABLET PO SCH ×3 (10:06→17:31)
[2022-10-12] MEDS: traMADol HCL 50 MG TABLET PO PRN (10:06)
[2022-10-12] MEDS: AMIODARONE HCL 200 MG TABLET PO SCH (10:06)
[2022-10-12] MEDS: BACITRACIN 15 GM TUBE TOPICAL OINTMENT TP SCH (10:06)
[2022-10-12] MEDS: MINERAL OIL/PETROLAT/WATER TOPICAL CREAM 454 GM JAR TP SCH (10:07)
[2022-10-12] MEDS: LIDOCAINE 5% TOPICAL PATCH TP SCH (10:07)
[2022-10-12] MEDS ORDERED: FUROSEMIDE 40 MG/4 ML INJECTABLE VIAL IVPUSH ONE (16:15)
[2022-10-12] MEDS ORDERED: FUROSEMIDE 40 MG TABLET (FP) PO ONE (16:35)
[2022-10-12] MEDS: COLLAGENASE CLOSTRIDIUM HIST. 30 GRAMS TUBE TP SCH (17:00)
[2022-10-12] MEDS: LIDOCAINE PATCH REMOVAL MC SCH (22:33)
[2022-10-13] MEDS: LEVOTHYROXINE NA 75 MCG TABLET (FP) PO SCH (06:50)
[2022-10-13 07:35] LABS: HEMATOCRIT 32.2 % (35.4-49); HEMOGLOBIN 10.4 GM/dL (11.7-16.9); MCH 29.3 pg (25.7-33.7); MCHC 32.2 g/dl (32.0-35.9); MEAN CELL VOLUME 90.9 fl (80-96); PLATELET COUNT 327 10^3/uL (134-434); RBC 3.54 M/mm3 (4.00-5.60); RDW 18.6 % (11.9-15.9); WHITE BLOOD COUNT 13.6 K/mm3 (4.0-10.0)
[2022-10-13 07:44] LABS: CHLORIDE 110 mmol/L (98-107); SODIUM 141 mmol/L (136-145)
[2022-10-13 08:31] LABS: CALCIUM 8.9 mg/dL (8.5-10.1)
[2022-10-13 08:32] LABS: ALBUMIN 2.5 g/dl (3.4-5.0); ANION GAP 10 MMOL/L (8-16); CO2 21 mmol/L (21-32); GLUCOSE,RANDOM 114 mg/dL (74-106)
[2022-10-13 08:36] LABS: CREATININE 2.9 mg/dL (0.55-1.3); SGPT/ALT 7 U/L (13-61)
[2022-10-13 08:38] LABS: TOT PROT 5.8 g/dl (6.4-8.2)
[2022-10-13 08:39] LABS: ALK PHOS 249 U/L (45-117)
[2022-10-13 08:57] LABS: SGOT/AST 35 U/L (15-37)
[2022-10-13 08:59] LABS: BILIRUBIN,TOTAL 1.2 mg/dL (0.2-1); BLOOD UREA NITROGEN 109.2 mg/dL (7-18)
[2022-10-13] MEDS: TRIAMCINOLONE ACET 0.1% CREAM 15 GM TUBE TP SCH (09:29)
[2022-10-13] MEDS: BACITRACIN 15 GM TUBE TOPICAL OINTMENT TP SCH (09:29)
[2022-10-13] MEDS: MINERAL OIL/PETROLAT/WATER TOPICAL CREAM 454 GM JAR TP SCH (09:30)
[2022-10-13] MEDS: APIXABAN 2.5 MG TABLET PO SCH ×2 (09:30→22:41)
[2022-10-13] MEDS: LIDOCAINE 5% TOPICAL PATCH TP SCH (09:30)
[2022-10-13] MEDS: LACTULOSE 20 GM/30 ML UDC (FOR ORAL USE ONLY) PO SCH ×2 (09:30→22:41)
[2022-10-13] MEDS: AMIODARONE HCL 200 MG TABLET PO SCH (09:30)
[2022-10-13] MEDS: PANTOPRAZOLE 40 MG TABLET PO SCH (09:31)
[2022-10-13] MEDS: RIFAXIMIN 550 MG TABLET PO SCH ×2 (09:31→22:41)
[2022-10-13] MEDS: COLLAGENASE CLOSTRIDIUM HIST. 30 GRAMS TUBE TP SCH (09:31)
[2022-10-13] MEDS: MIDODRINE HCL 5 MG TABLET PO SCH ×3 (09:31→17:00)
[2022-10-13] MEDS ORDERED: FUROSEMIDE 20 MG TABLET (FP) PO ONE (12:30)
[2022-10-13] MEDS: LIDOCAINE PATCH REMOVAL MC SCH (22:41)
[2022-10-14] MEDS: LEVOTHYROXINE NA 75 MCG TABLET (FP) PO SCH (06:43)
[2022-10-14] MEDS: LIDOCAINE 5% TOPICAL PATCH TP SCH (09:05)
[2022-10-14] MEDS: MIDODRINE HCL 5 MG TABLET PO SCH ×3 (09:05→17:50)
[2022-10-14] MEDS: LACTULOSE 20 GM/30 ML UDC (FOR ORAL USE ONLY) PO SCH ×2 (09:05→22:35)
[2022-10-14] MEDS: PANTOPRAZOLE 40 MG TABLET PO SCH (09:05)
[2022-10-14] MEDS: AMIODARONE HCL 200 MG TABLET PO SCH (09:05)
[2022-10-14] MEDS: APIXABAN 2.5 MG TABLET PO SCH ×2 (09:05→22:35)
[2022-10-14] MEDS: RIFAXIMIN 550 MG TABLET PO SCH ×2 (09:06→22:36)
[2022-10-14] MEDS: COLLAGENASE CLOSTRIDIUM HIST. 30 GRAMS TUBE TP SCH (09:30)
[2022-10-14] MEDS: TRIAMCINOLONE ACET 0.1% CREAM 15 GM TUBE TP SCH (10:39)
[2022-10-14] MEDS: BACITRACIN 15 GM TUBE TOPICAL OINTMENT TP SCH (10:39)
[2022-10-14] MEDS: MINERAL OIL/PETROLAT/WATER TOPICAL CREAM 454 GM JAR TP SCH (10:39)
[2022-10-14 13:06] LABS: HEMATOCRIT 31.9 % (35.4-49); HEMOGLOBIN 10.3 GM/dL (11.7-16.9); MCH 29.5 pg (25.7-33.7); MCHC 32.3 g/dl (32.0-35.9); MEAN CELL VOLUME 91.2 fl (80-96); MEAN PLT VOLUME 8.7 fl (7.5-11.1); PLATELET COUNT 290 10^3/uL (134-434); RBC 3.49 M/mm3 (4.00-5.60); WHITE BLOOD COUNT 9.5 K/mm3 (4.0-10.0)
[2022-10-14 13:26] LABS: CHLORIDE 107 mmol/L (98-107); SODIUM 141 mmol/L (136-145)
[2022-10-14 13:28] LABS: ALBUMIN 2.4 g/dl (3.4-5.0); ANION GAP 12 MMOL/L (8-16); CALCIUM 8.7 mg/dL (8.5-10.1); CO2 22 mmol/L (21-32)
[2022-10-14 13:29] LABS: GLUCOSE,RANDOM 113 mg/dL (74-106); MAGNESIUM 2.4 mg/dL (1.8-2.4)
[2022-10-14 13:31] LABS: CREATININE 3.2 mg/dL (0.55-1.3); PHOSPHOROUS 3.2 mg/dL (2.5-4.9); SGOT/AST 31 U/L (15-37); SGPT/ALT < 6 U/L (13-61)
[2022-10-14 13:33] LABS: BILIRUBIN,TOTAL 1.4 mg/dL (0.2-1); TOT PROT 5.8 g/dl (6.4-8.2)
[2022-10-14 13:34] LABS: ALK PHOS 243 U/L (45-117)
[2022-10-14 13:42] LABS: BLOOD UREA NITROGEN 113.8 mg/dL (7-18)
[2022-10-14] MEDS ORDERED: FUROSEMIDE 20 MG TABLET (FP) PO ONE (14:14)
[2022-10-14] MEDS: SODIUM ZIRCONIUM CYCLOSILICATE (LOKELMA) 5 GM PACKET PO SCH (16:00)
[2022-10-14] MEDS: LIDOCAINE PATCH REMOVAL MC SCH (22:36)
[2022-10-15] MEDS: LEVOTHYROXINE NA 75 MCG TABLET (FP) PO SCH (06:26)
[2022-10-15 07:34] LABS: HEMATOCRIT 30.1 % (35.4-49); HEMOGLOBIN 9.9 GM/dL (11.7-16.9); MCH 29.6 pg (25.7-33.7); MCHC 32.8 g/dl (32.0-35.9); MEAN CELL VOLUME 90.2 fl (80-96); PLATELET COUNT 277 10^3/uL (134-434); RBC 3.33 M/mm3 (4.00-5.60); RDW 19.1 % (11.9-15.9); WHITE BLOOD COUNT 9.8 K/mm3 (4.0-10.0)
[2022-10-15 07:57] LABS: CHLORIDE 106 mmol/L (98-107); SODIUM 140 mmol/L (136-145)
[2022-10-15 08:03] LABS: CALCIUM 8.5 mg/dL (8.5-10.1)
[2022-10-15 08:04] LABS: ALBUMIN 2.3 g/dl (3.4-5.0); ANION GAP 9 MMOL/L (8-16); CO2 24 mmol/L (21-32); GLUCOSE,RANDOM 102 mg/dL (74-106); MAGNESIUM 2.1 mg/dL (1.8-2.4)
[2022-10-15 08:07] LABS: CREATININE 3.1 mg/dL (0.55-1.3); SGOT/AST 31 U/L (15-37)
[2022-10-15 08:08] LABS: TOT PROT 5.4 g/dl (6.4-8.2)
[2022-10-15 08:09] LABS: BILIRUBIN,TOTAL 1.4 mg/dL (0.2-1)
[2022-10-15 08:17] LABS: ALK PHOS 243 U/L (45-117); BLOOD UREA NITROGEN 109.4 mg/dL (7-18); SGPT/ALT < 6 U/L (13-61)
[2022-10-15] MEDS: TRIAMCINOLONE ACET 0.1% CREAM 15 GM TUBE TP SCH (09:23)
[2022-10-15] MEDS: MINERAL OIL/PETROLAT/WATER TOPICAL CREAM 454 GM JAR TP SCH (09:23)
[2022-10-15] MEDS: BACITRACIN 15 GM TUBE TOPICAL OINTMENT TP SCH (09:24)
[2022-10-15] MEDS: LIDOCAINE 5% TOPICAL PATCH TP SCH (09:24)
[2022-10-15] MEDS: SODIUM ZIRCONIUM CYCLOSILICATE (LOKELMA) 5 GM PACKET PO SCH (09:24)
[2022-10-15] MEDS: LACTULOSE 20 GM/30 ML UDC (FOR ORAL USE ONLY) PO SCH ×2 (09:25→21:28)
[2022-10-15] MEDS: PANTOPRAZOLE 40 MG TABLET PO SCH (09:25)
[2022-10-15] MEDS: APIXABAN 2.5 MG TABLET PO SCH ×2 (09:25→21:28)
[2022-10-15] MEDS: RIFAXIMIN 550 MG TABLET PO SCH ×2 (09:25→21:28)
[2022-10-15] MEDS: MIDODRINE HCL 5 MG TABLET PO SCH ×3 (09:25→18:13)
[2022-10-15] MEDS: AMIODARONE HCL 200 MG TABLET PO SCH (09:25)
[2022-10-15] MEDS: COLLAGENASE CLOSTRIDIUM HIST. 30 GRAMS TUBE TP SCH (09:59)
[2022-10-15] MEDS ORDERED: FUROSEMIDE 40 MG/4 ML INJECTABLE VIAL IVPUSH ONE (11:30)
[2022-10-15] MEDS: LIDOCAINE PATCH REMOVAL MC SCH (21:29)
[2022-10-16] MEDS: LEVOTHYROXINE NA 75 MCG TABLET (FP) PO SCH (06:34)
[2022-10-16 07:26] LABS: BASO % 0.2 % (0-2.0); EOS % 1.2 % (0-4.5); HEMATOCRIT 29.5 % (35.4-49); HEMOGLOBIN 9.6 GM/dL (11.7-16.9); LYMPH % 1.5 % (8-40); MCH 29.3 pg (25.7-33.7); MCHC 32.4 g/dl (32.0-35.9); MEAN CELL VOLUME 90.4 fl (80-96); MEAN PLT VOLUME 8.8 fl (7.5-11.1); MONO % 2.4 % (3.8-10.2); NEUT % 94.7 % (42.8-82.8); PLATELET COUNT 246 10^3/uL (134-434); RBC 3.26 M/mm3 (4.00-5.60); RDW 19.3 % (11.9-15.9); WHITE BLOOD COUNT 9.9 K/mm3 (4.0-10.0)
[2022-10-16 07:38] LABS: INR 1.99 (0.83-1.09)
[2022-10-16 07:51] LABS: CHLORIDE 106 mmol/L (98-107); SODIUM 141 mmol/L (136-145)
[2022-10-16 07:56] LABS: ANION GAP 14 MMOL/L (8-16); CALCIUM 8.9 mg/dL (8.5-10.1); CO2 21 mmol/L (21-32); GLUCOSE,RANDOM 91 mg/dL (74-106); MAGNESIUM 2.2 mg/dL (1.8-2.4)
[2022-10-16 07:57] LABS: ALBUMIN 2.4 g/dl (3.4-5.0)
[2022-10-16 07:59] LABS: PHOSPHOROUS 3.2 mg/dL (2.5-4.9); SGOT/AST 32 U/L (15-37); SGPT/ALT < 6 U/L (13-61)
[2022-10-16 08:00] LABS: CREATININE 3.1 mg/dL (0.55-1.3)
[2022-10-16 08:01] LABS: BILIRUBIN,TOTAL 1.8 mg/dL (0.2-1); TOT PROT 5.4 g/dl (6.4-8.2)
[2022-10-16 08:02] LABS: ALK PHOS 239 U/L (45-117)
[2022-10-16 08:04] LABS: BLOOD UREA NITROGEN 112.6 mg/dL (7-18)
[2022-10-16 09:21] LABS: ANISOCYTOSIS 3+; MACROCYTOSIS 0; OVALOCYTE 2+
[2022-10-16] MEDS: TRIAMCINOLONE ACET 0.1% CREAM 15 GM TUBE TP SCH (10:51)
[2022-10-16] MEDS: MINERAL OIL/PETROLAT/WATER TOPICAL CREAM 454 GM JAR TP SCH (10:52)
[2022-10-16] MEDS: LIDOCAINE 5% TOPICAL PATCH TP SCH (10:52)
[2022-10-16] MEDS: COLLAGENASE CLOSTRIDIUM HIST. 30 GRAMS TUBE TP SCH (10:52)
[2022-10-16] MEDS: SODIUM ZIRCONIUM CYCLOSILICATE (LOKELMA) 5 GM PACKET PO SCH (10:52)
[2022-10-16] MEDS: APIXABAN 2.5 MG TABLET PO SCH ×2 (10:52→21:17)
[2022-10-16] MEDS: BACITRACIN 15 GM TUBE TOPICAL OINTMENT TP SCH (10:52)
[2022-10-16] MEDS: MIDODRINE HCL 5 MG TABLET PO SCH ×3 (10:52→18:28)
[2022-10-16] MEDS: LACTULOSE 20 GM/30 ML UDC (FOR ORAL USE ONLY) PO SCH ×2 (10:52→21:17)
[2022-10-16] MEDS: PANTOPRAZOLE 40 MG TABLET PO SCH (10:52)
[2022-10-16] MEDS: AMIODARONE HCL 200 MG TABLET PO SCH (10:52)
[2022-10-16] MEDS: RIFAXIMIN 550 MG TABLET PO SCH (10:53)
[2022-10-16 11:00] LABS: RETICULOCYTES 1.16 % (0.5-1.5)
[2022-10-16 11:06] LABS: TOTAL IRON BINDING CAPACITY 226 ug/dL (250-450)
[2022-10-16 11:07] LABS: IRON SERUM 72 ug/dL (50-175)
[2022-10-16] MEDS ORDERED: traMADol HCL 50 MG TABLET PO ONE (16:13)
[2022-10-16] MEDS: LIDOCAINE PATCH REMOVAL MC SCH (21:17)
[2022-10-17] MEDS: LEVOTHYROXINE NA 75 MCG TABLET (FP) PO SCH (06:11)
[2022-10-17 07:20] LABS: HEMATOCRIT 29.4 % (35.4-49); HEMOGLOBIN 9.4 GM/dL (11.7-16.9); MCH 29.5 pg (25.7-33.7); MEAN CELL VOLUME 92.2 fl (80-96); MEAN PLT VOLUME 9.2 fl (7.5-11.1); PLATELET COUNT 237 10^3/uL (134-434); RBC 3.19 M/mm3 (4.00-5.60); RDW 19.9 % (11.9-15.9); WHITE BLOOD COUNT 9.6 K/mm3 (4.0-10.0)
[2022-10-17 07:37] LABS: CHLORIDE 106 mmol/L (98-107); SODIUM 142 mmol/L (136-145)
[2022-10-17 07:40] LABS: ALBUMIN 2.2 g/dl (3.4-5.0); ANION GAP 10 MMOL/L (8-16); CALCIUM 8.8 mg/dL (8.5-10.1); CO2 26 mmol/L (21-32); GLUCOSE,RANDOM 92 mg/dL (74-106); MAGNESIUM 2.2 mg/dL (1.8-2.4)
[2022-10-17 07:43] LABS: CREATININE 3.1 mg/dL (0.55-1.3); PHOSPHOROUS 3.2 mg/dL (2.5-4.9); SGOT/AST 37 U/L (15-37)
[2022-10-17 07:45] LABS: TOT PROT 5.3 g/dl (6.4-8.2)
[2022-10-17 07:46] LABS: ALK PHOS 247 U/L (45-117)
[2022-10-17 07:47] LABS: BLOOD UREA NITROGEN 105.9 mg/dL (7-18); SGPT/ALT < 6 U/L (13-61)
[2022-10-17 09:15] LABS: ANISOCYTOSIS 2+; MACROCYTOSIS 0
[2022-10-17] MEDS: MIDODRINE HCL 5 MG TABLET PO SCH ×3 (10:36→18:04)
[2022-10-17] MEDS: PANTOPRAZOLE 40 MG TABLET PO SCH (10:36)
[2022-10-17] MEDS: LIDOCAINE 5% TOPICAL PATCH TP SCH (10:36)
[2022-10-17] MEDS: LACTULOSE 20 GM/30 ML UDC (FOR ORAL USE ONLY) PO SCH ×2 (10:36→22:20)
[2022-10-17] MEDS: MINERAL OIL/PETROLAT/WATER TOPICAL CREAM 454 GM JAR TP SCH (10:37)
[2022-10-17] MEDS: BACITRACIN 15 GM TUBE TOPICAL OINTMENT TP SCH (10:37)
[2022-10-17] MEDS: APIXABAN 2.5 MG TABLET PO SCH ×2 (10:37→22:20)
[2022-10-17] MEDS: AMIODARONE HCL 200 MG TABLET PO SCH (10:37)
[2022-10-17] MEDS: COLLAGENASE CLOSTRIDIUM HIST. 30 GRAMS TUBE TP SCH (10:38)
[2022-10-17] MEDS: TRIAMCINOLONE ACET 0.1% CREAM 15 GM TUBE TP SCH (10:39)
[2022-10-17] MEDS: SODIUM ZIRCONIUM CYCLOSILICATE (LOKELMA) 5 GM PACKET PO SCH (10:42)
[2022-10-17] MEDS: LIDOCAINE PATCH REMOVAL MC SCH (22:20)
[2022-10-18] MEDS: LEVOTHYROXINE NA 75 MCG TABLET (FP) PO SCH (06:24)
[2022-10-18 07:27] LABS: HEMATOCRIT 27.8 % (35.4-49); MCH 29.8 pg (25.7-33.7); MCHC 32.5 g/dl (32.0-35.9); MEAN CELL VOLUME 91.7 fl (80-96); MEAN PLT VOLUME 8.5 fl (7.5-11.1); PLATELET COUNT 216 10^3/uL (134-434); RBC 3.03 M/mm3 (4.00-5.60); RDW 20.3 % (11.9-15.9); WHITE BLOOD COUNT 9.9 K/mm3 (4.0-10.0)
[2022-10-18 07:52] LABS: CHLORIDE 108 mmol/L (98-107); SODIUM 144 mmol/L (136-145)
[2022-10-18 07:59] LABS: ALBUMIN 2.1 g/dl (3.4-5.0); ANION GAP 12 MMOL/L (8-16); CO2 23 mmol/L (21-32); GLUCOSE,RANDOM 86 mg/dL (74-106)
[2022-10-18 08:00] LABS: CALCIUM 8.5 mg/dL (8.5-10.1); MAGNESIUM 2.2 mg/dL (1.8-2.4)
[2022-10-18 08:02] LABS: PHOSPHOROUS 3.2 mg/dL (2.5-4.9); SGOT/AST 32 U/L (15-37); SGPT/ALT < 6 U/L (13-61)
[2022-10-18 08:04] LABS: BILIRUBIN,TOTAL 2.2 mg/dL (0.2-1); TOT PROT 5.2 g/dl (6.4-8.2)
[2022-10-18 08:30] LABS: ALK PHOS 213 U/L (45-117); BLOOD UREA NITROGEN 104.5 mg/dL (7-18)
[2022-10-18] MEDS: LIDOCAINE 5% TOPICAL PATCH TP SCH (09:13)
[2022-10-18] MEDS: MIDODRINE HCL 5 MG TABLET PO SCH ×3 (09:14→17:44)
[2022-10-18] MEDS: LACTULOSE 20 GM/30 ML UDC (FOR ORAL USE ONLY) PO SCH (09:14)
[2022-10-18] MEDS: APIXABAN 2.5 MG TABLET PO SCH (09:14)
[2022-10-18] MEDS: AMIODARONE HCL 200 MG TABLET PO SCH (09:14)
[2022-10-18] MEDS: PANTOPRAZOLE 40 MG TABLET PO SCH (09:14)
[2022-10-18] MEDS: TRIAMCINOLONE ACET 0.1% CREAM 15 GM TUBE TP SCH (09:14)
[2022-10-18] MEDS: BACITRACIN 15 GM TUBE TOPICAL OINTMENT TP SCH (09:14)
[2022-10-18] MEDS: MINERAL OIL/PETROLAT/WATER TOPICAL CREAM 454 GM JAR TP SCH (09:15)
[2022-10-18] MEDS: COLLAGENASE CLOSTRIDIUM HIST. 30 GRAMS TUBE TP SCH (09:15)
[2022-10-18] MEDS: SODIUM ZIRCONIUM CYCLOSILICATE (LOKELMA) 5 GM PACKET PO SCH (09:15)
[2022-10-18 09:16] LABS: ANISOCYTOSIS 2+; MACROCYTOSIS 0; OVALOCYTE 1+
[2022-10-18 18:10] VITALS: BP 91/57; PULSE 113; RESP 20; TEMP 97.8
[2022-10-19] MEDS ORDERED: FUROSEMIDE 40 MG TABLET (FP) PO SCH (10:00)
== END 2022-10-18 20:31 | DRG 291 ==
LOC: JER 03:21 → JERBED 09:32 → J5S 14:07 → J7W 10-01 23:49 → J2W 10-02 10:10
PROVIDERS: ADMIT Internal Medicine; ATTEND Internal Medicine
PROC: 0W9G3ZZ Drainage of Peritoneal Cavity, Percutaneous Approach (ICD-10-PCS; principal; 2022-09-15)
PROC: 0W9G3ZZ Drainage of Peritoneal Cavity, Percutaneous Approach (ICD-10-PCS; 2022-09-27)
PROC: 0W9G3ZZ Drainage of Peritoneal Cavity, Percutaneous Approach (ICD-10-PCS; 2022-10-03)
DX: I13.0 Hypertensive heart and chronic kidney disease with heart failure and stage 1 through stage 4 chronic kidney disease, or unspecified chronic kidney disease (principal); I50.33 Acute on chronic diastolic (congestive) heart failure; U07.1 COVID-19; N17.9 Acute kidney failure, unspecified; I48.19 Other persistent atrial fibrillation; E87.1 Hypo-osmolality and hyponatremia; R18.8 Other ascites; R64 Cachexia; N18.32 Chronic kidney disease, stage 3b; L27.0 Generalized skin eruption due to drugs and medicaments taken internally; E87.5 Hyperkalemia; K76.82 Hepatic encephalopathy; T50.995A Adverse effect of other drugs, medicaments and biological substances, initial encounter; Y92.89 Other specified places as the place of occurrence of the external cause; S70.12XA Contusion of left thigh, initial encounter; I95.9 Hypotension, unspecified; S62.340A Nondisplaced fracture of base of second metacarpal bone, right hand, initial encounter for closed fracture; K74.60 Unspecified cirrhosis of liver; R62.7 Adult failure to thrive; L89.150 Pressure ulcer of sacral region, unstageable; E03.9 Hypothyroidism, unspecified; W19.XXXA Unspecified fall, initial encounter; Y93.9 Activity, unspecified; Y99.9 Unspecified external cause status; E87.70 Fluid overload, unspecified; Z68.22 Body mass index [BMI] 22.0-22.9, adult; I25.119 Atherosclerotic heart disease of native coronary artery with unspecified angina pectoris
CPT/HCPCS: 0241U-QW; 36415; 70450-TC; 71045-TC-FY; 71250-TC; 72125-TC; 73110-TC-RT-FY; 73130-TC-RT-FY; 73521-TC-FY; 74176-TC; 76705-TC; 76775-TC; 76856-TC; 76942-TC; 80048; 80053; 80061; 82042; 82140; 82150; 82248; 82465; 82550; 82553; 82728; 82945; 82962; 83036; 83540; 83550; 83615; 83735; 83880; 83986; 84100; 84157; 84439; 84443; 84478; 84481; 84484; 84550; 85025; 85027; 85045; 85610; 85651; 85730; 86140; 86850; 86870; 86900; 86901; 86902; 87040; 87070; 87075; 87102; 87116; 87205; 87206; 87210; 88108; 88305-TC; 93005; 93010; 93970-TC; 93971; 97116-GP; 97161-GP; 99285-25; C9803-CS; U0003; U0005